=== PATIENT | male | born 1965 | race Two or more races ===

== ENCOUNTER → 2020-06-21 14:46 | Outpatient (BNVA) | payer MEDICARE, SELFPAY | PROVIDERS: PCP Internal Medicine; Visit Provider Nurse Practitioner | DX: R10.13 Epigastric pain (principal); K21.9 Gastro-esophageal reflux disease without esophagitis; D12.6 Benign neoplasm of colon, unspecified; K22.10 Ulcer of esophagus without bleeding; K76.0 Fatty (change of) liver, not elsewhere classified; Z91.013 Allergy to seafood; Z55.0 Illiteracy and low-level literacy | CPT/HCPCS: 99212 ==

== ENCOUNTER 2021-04-13 13:44 | Outpatient (REF) | payer OTHER, SELFPAY ==
[2021-04-13 15:02] LABS: MANUAL DIFF FLAG NO
[2021-04-13 15:05] LABS: Basophils Percent Auto 0.4 % (0-2); Eosinophils Absolute Auto 0.1 X10*3/uL (0.0-0.4); Eosinophils Percent Auto 1.9 % (0-4); Hematocrit 41.6 % (42-52); Hemoglobin 13.6 g/dl (14.0-18.0); Imm Gran Abs Auto 0.02 X10*3/uL (0.00-0.03); Imm Gran Pct Auto 0.3 % (0.0-0.4); Lymphocytes Absolute Auto 2.5 X10*3/uL (1.2-4.9); Lymphocytes Percent Auto 33.4 % (20-40); Mean Corpuscular HGB Conc 32.7 g/dl (31.0-36.0); Mean Corpuscular Hemoglobin 31.7 pg (27.0-33.0); Mean Platelet Volume 9.3 fL (9.4-12.4); Monocytes Absolute Auto 0.6 X10*3/uL (0.1-1.2); Monocytes Percent Auto 8.4 % (2-11); Neutrophils Absolute Auto 4.1 X10*3/uL (2.0-8.3); Neutrophils Percent Auto 55.6 % (45-73); Platelet Count 287 X10*3/uL (160-400); Red Blood Count 4.29 X10*6/uL (4.60-5.80); Red Cell Distribution Width 13.2 % (11.0-16.0); White Blood Count 7.4 X10*3/uL (4.8-10.8)
[2021-04-13 15:27] LABS: Alanine Aminotransferase 15 U/L (0-40); Albumin Level 4.2 g/dL (3.5-5.0); Alkaline Phosphatase 66 U/L (39-117); Anion Gap 13 (12-20); Aspartate Amino Transferase 16 U/L (5-37); Bilirubin Total 0.6 mg/dL (0.0-1.0); Blood Urea Nitrogen 13 mg/dL (9-16); Calcium 9.4 mg/dL (8.4-10.2); Carbon Dioxide 24 mmol/L (22-29); Chloride 110 mmol/L (96-108); Estimated Glomerular Filt Rate > 60; Glucose Random 124 mg/dL (60-115); Potassium 3.8 mmol/L (3.3-5.1); Sodium 143 mmol/L (135-145); Total Protein 7.2 g/dL (6.5-8.0)
[2021-04-13 16:10] LABS: Folate 13.9 ng/mL (> or = 4.0); Vitamin B12 216 pg/mL (200-900)
[2021-04-18 10:36] LABS: Alpha Fetoprotein 4.1 ng/mL (<6.1)
[2021-04-18 11:51] LABS: Parietal Cell Antibody <=20.0 Unit (<=20.0)
[2021-04-19 12:21] LABS: Vitamin D 25-OH, D2 14 ng/mL; Vitamin D 25-OH, D3 15 ng/mL; Vitamin D 25-OH, Total 29 ng/mL (30-100)
[2021-04-19 19:13] LABS: Intrinsic Factor Antibodies Negative (Negative)
== END 2021-04-13 13:45 | disposition home or self-care (01) ==
LOC: HO.LAB 13:44
PROVIDERS: PCP Internal Medicine; Referring Provider Internal Medicine; Visit Provider Nurse Practitioner
DX: R10.13 Epigastric pain (principal); K21.9 Gastro-esophageal reflux disease without esophagitis; K75.81 Nonalcoholic steatohepatitis (NASH); K22.10 Ulcer of esophagus without bleeding; K59.00 Constipation, unspecified; E55.9 Vitamin D deficiency, unspecified; E53.8 Deficiency of other specified B group vitamins; Z86.010 Personal history of colon polyps; Z55.0 Illiteracy and low-level literacy
CPT/HCPCS: 36415; 80053; 82105; 82306; 82607; 82746; 83516; 85025; 86340; 99212

== ENCOUNTER 2021-05-08 15:05 | Outpatient (REF) | payer OTHER, SELFPAY ==
--- NOTE | ~2021-05-08 | US_ITS ---
EXAMINATION: US ABDOMEN LIMITED CLINICAL INFORMATION: Fatty (change of) liver, not elsewhere classified. COMPARISON: Ultrasound abdomen complete dated 04/28/2020 and 04/02/2016. TECHNIQUE: Real-time imaging of the right upper quadrant abdominal viscera. FINDINGS: PANCREAS: The head and body the pancreas are normal. The tail is not well visualized due to bowel gas. LIVER: The liver is normal in size. The liver contour is normal. Liver echotexture is slightly increased. No focal hepatic lesion. There is no intrahepatic biliary duct dilatation seen. GALLBLADDER: Normal. The gallbladder is physiologically distended without evidence of stones, sludge, polyps, wall thickening or pericholecystic fluid. COMMON BILE DUCT: Normal in caliber measuring 0.4 cm in diameter. RIGHT KIDNEY: Normal. No hydronephrosis. No renal calculi or focal parenchymal lesions. The kidney measures 11.7 cm in maximum dimension. FREE FLUID: None. US/US abdomen limited IMPRESSION: Slightly echogenic liver probably representing fatty infiltration. Limited visualization of the tail the pancreas.
== END 2021-05-08 15:06 | disposition home or self-care (01) ==
LOC: HO.US 15:05
PROVIDERS: PCP Internal Medicine; Visit Provider Nurse Practitioner
DX: K76.0 Fatty (change of) liver, not elsewhere classified (principal)
CPT/HCPCS: 76705

== ENCOUNTER → 2021-06-09 15:44 | Outpatient (BNVA) | payer OTHER, SELFPAY | PROVIDERS: PCP Internal Medicine; Visit Provider Nurse Practitioner | DX: Z13.89 Encounter for screening for other disorder (principal) | CPT/HCPCS: Q3014 ==

== ENCOUNTER 2021-07-21 15:32 | Outpatient (REF) | payer OTHER, SELFPAY ==
[2021-07-21 15:47] LABS: MANUAL DIFF FLAG NO
[2021-07-21 15:53] LABS: Basophils Percent Auto 0.5 % (0-2); Eosinophils Absolute Auto 0.1 X10*3/uL (0.0-0.4); Eosinophils Percent Auto 2.1 % (0-4); Hematocrit 40.5 % (42.0-52.0); Hemoglobin 13.2 g/dl (14.0-18.0); Imm Gran Abs Auto 0.02 X10*3/uL (0.00-0.03); Imm Gran Pct Auto 0.3 % (0.0-0.4); Lymphocytes Absolute Auto 2.4 X10*3/uL (1.2-4.9); Mean Corpuscular HGB Conc 32.6 g/dl (31.0-36.0); Mean Corpuscular Hemoglobin 31.8 pg (27.0-33.0); Mean Corpuscular Volume 97.6 fL (80.0-98.0); Mean Platelet Volume 9.1 fL (9.4-12.4); Monocytes Absolute Auto 0.5 X10*3/uL (0.1-1.2); Monocytes Percent Auto 6.8 % (2-11); Neutrophils Absolute Auto 3.6 x10*3/uL (2.0-8.3); Neutrophils Percent Auto 54.3 % (45-73); Platelet Count 267 X10*3/uL (160-400); Red Blood Count 4.15 X10*6/uL (4.60-5.80); Red Cell Distribution Width 12.3 % (11.0-16.0); White Blood Count 6.6 X10*3/uL (4.8-10.8)
[2021-07-21 16:18] LABS: Alanine Aminotransferase 20 U/L (0-40); Albumin Level 4.1 g/dL (3.5-5.0); Alkaline Phosphatase 80 U/L (39-117); Anion Gap 11 (12-20); Aspartate Amino Transferase 21 U/L (5-37); Blood Urea Nitrogen 12 mg/dL (9-16); Calcium 9.4 mg/dL (8.4-10.2); Carbon Dioxide 27 mmol/L (22-29); Chloride 107 mmol/L (96-108); Cholesterol 153 mg/dL; Estimated Glomerular Filt Rate > 60; Glucose Fasting 105 mg/dL (60-99); HDL Cholesterol 36 mg/dL; LDL Cholesterol Calculated 106 mg/dl; Potassium 4.3 mmol/L (3.3-5.1); Sodium 141 mmol/L (135-145); Total Protein 6.9 g/dL (6.5-8.0); Triglycerides 55 mg/dL
[2021-07-21 16:55] LABS: Folate 15.1 ng/mL (> or = 4.0); Vitamin B12 312 pg/mL (200-900)
[2021-07-26 12:42] LABS: Vitamin D 25-OH, D2 10 ng/mL; Vitamin D 25-OH, D3 15 ng/mL; Vitamin D 25-OH, Total 25 ng/mL (30-100)
== END 2021-07-21 15:33 | disposition home or self-care (01) ==
LOC: HO.LAB 15:32
PROVIDERS: Visit Provider Internal Medicine
DX: K21.9 Gastro-esophageal reflux disease without esophagitis (principal); E78.5 Hyperlipidemia, unspecified; E53.8 Deficiency of other specified B group vitamins; E55.9 Vitamin D deficiency, unspecified; Z82.49 Family history of ischemic heart disease and other diseases of the circulatory system
CPT/HCPCS: 36415; 80053; 80061; 82306; 82607; 82746; 85025

== ENCOUNTER 2021-09-12 07:18 | Day surgery (SDC) | payer OTHER, SELFPAY ==
[2021-08-24 11:11] VITALS: BMI 25.1
--- NOTE | 2021-09-11 10:59 | HO.ANESPROP2 ---
Documented by User: Betty Powell NP 09/11/21 11:01 HPI - Anesthesia Eval Consult details Narrative: 56yo M for Upper Endoscopy and Colonoscopy [facility] Active Problems Active Problems: All Active Problems (Updated 04/13/21 @ 17:39 by CHRISTINA Lake) Constipation (Acute) Tubular adenoma of colon (Acute) B12 deficiency (Acute) Family history of hypertension (Acute) Insomnia (Acute) Depression (Acute) Hypovitaminosis D (Acute) Diverticulosis of colon (Acute) Epigastric pain (Acute) GERD (gastroesophageal reflux disease) (Acute) Nonalcoholic fatty liver disease without nonalcoholic steatohepatitis (HELMS) (Acute) Illiterate (Acute) Erosive esophagitis (Acute) Colon cancer screening (Acute) Past Medical History Medical History B12 deficiency Chronic low back pain Depression Erosive esophagitis Family history of hypertension GERD (gastroesophageal reflux disease) Hypovitaminosis D Insomnia Nonalcoholic fatty liver disease without nonalcoholic steatohepatitis (HELMS) Tubular adenoma of colon Family History Family History Father HTN (hypertension) Stroke Epilepsy Mother Alzheimer disease Surgical History Surgical History Hx of arthroscopy of left knee Hx of colonoscopy Hx of left inguinal hernia repair Social History Social History Are you a primary care management specialist to a significant other at home: No Do you presently have visiting nurse or other home services: No Alcohol intake: current Alcohol intake frequency: does not drink Alcohol type: beer Patient Tobacco Use Status: Former Tobacco user Quit Date: 2017 Tobacco use type: Cigarette e-Cigarette/Vaping Use: Never Used Second Hand Smoke Exposure: No Use of substances other than those prescribed or required for medical reasons: No Have you been hit, kicked, punched, or otherwise hurt by someone within the past year? If so, by whom?: No Are you DNR?: No Advance Directives: No Advance Directives Information Provided: Yes (informational brochure mailed) Advance Directives on File: No Recently lost weight without trying: No Eating poorly because of decreased appetite: No Nutrition Risks: No Nutritional Risk Meds Allergies Allergy/AdvReac Type Severity Reaction Status Date / Time crab Allergy Intermediate RASH Verified 06/09/21 15:46 Exam Exam Date and Time: September 11, 2021 1059 Height,Weight and Vital Signs: Height 5 ft 11 in Weight 81.647 kg Pertinent Lab Results Pertinent Lab Results: Laboratory Tests 07/21/21 07/21/21 15:45 15:45 WBC 6.6 Hgb 13.2 L Hct 40.5 L Plt Count 267 Sodium 141 Potassium 4.3 Chloride 107 Carbon Dioxide 27 BUN 12 Creatinine 0.94 Assessment and Plan Assessment Anesthesia Assessment: Chart Reviewed Documented by User: José Miguel Chacko 09/12/21 10:03 PMF Past Medical History Medical History B12 deficiency Chronic low back pain Depression Erosive esophagitis Family history of hypertension GERD (gastroesophageal reflux disease) Hypovitaminosis D Insomnia Nonalcoholic fatty liver disease without nonalcoholic steatohepatitis (HELMS) Tubular adenoma of colon Functional capacity: independent ambulation Family History Family History Father HTN (hypertension) Stroke Epilepsy Mother Alzheimer disease Family history of problems with anesthesia: No Surgical History Surgical History Hx of arthroscopy of left knee Hx of colonoscopy Hx of left inguinal hernia repair History of Problems with Anesthesia: No Social History Social History Are you a primary care management specialist to a significant other at home: No Do you presently have visiting nurse or other home services: No Alcohol intake: current Alcohol intake frequency: does not drink Alcohol type: beer Patient Tobacco Use Status: Former Tobacco user Quit Date: 2017 Tobacco use type: Cigarette e-Cigarette/Vaping Use: Never Used Second Hand Smoke Exposure: No Use of substances other than those prescribed or required for medical reasons: No Have you been hit, kicked, punched, or otherwise hurt by someone within the past year? If so, by whom?: No Are you DNR?: No Advance Directives: No Advance Directives Information Provided: Yes (informational brochure mailed) Advance Directives on File: No Recently lost weight without trying: No Eating poorly because of decreased appetite: No Nutrition Risks: No Nutritional Risk Meds Allergies Allergy/AdvReac Type Severity Reaction Status Date / Time crab Allergy Intermediate RASH Verified 06/09/21 15:46 Exam Airway Mallampati Class: III TM Dist: >3cm Neck ROM: Full Loose/Missing/Broken Teeth: Yes (Chipped and missing ) Heart: rrr Lungs: bl breath sounds Assessment and Plan Final Anesthetic Review Family History of Problems with Anesthesia: No History of Problems with Anesthesia: No NPO: Yes ASA Class: II Final Preanesthetic Review: Aneadolfo Risks/Benef Reviewed Patient Risk: Intermediate Procedure Risk: Intermediate Anesthetic Plan Anesthetic Plan: MAC: Disposition: Standard PACU
--- NOTE | 2021-09-12 08:59 | MHC.SHP ---
Pre-Procedural Eval Section A Date of Service: 09/12/21 The patient is an INPATIENT: No The History & Physical has been completed within 30 days and I have reviewed it.: No Section B Chief Complaint: Colon cancer screening, hx of colon polyps, GERD Details of Present Illness: Colon cancer screening, hx of colon polyps, GERD, epigastric pain Relevant Family History (Specify if Yes): No Relevant Social History: None Present Medications: see Short Stay Collaborative assessment Medical History: Significant History (B12 deficiency Chronic low back pain Depression Family history of hypertension Hypovitaminosis D Insomnia Tubular adenoma of colon) History of Previous Operations: Relevant previous surgery/procedure and date(s) (Hx of arthroscopy of left knee Hx of colonoscopy Hx of left inguinal hernia repair) Allergies: Allergies Allergy/AdvReac Type Severity Reaction Status Date / Time crab Allergy Intermediate RASH Verified 06/09/21 15:46 Review of Systems Sugical H&P ROS: Negative: Constitution, Cardiovascular and Respiratory and Yes, Specify: Gastrointestinal (GERD, abdominal pain) Exam Surgical H&P Exam: Normal: Heart, Normal: Lungs, Normal: Extremities and Normal: Abdomen Plan Diagnosis/Plan: Unchanged I have reviewed the history and physical and performed a pertinent physical examination on my patient. No changes have occurred unless specified.
--- NOTE | 2021-09-12 09:01 | P.BOP_ITS ---
Brief Operative Note Date of Service: 09/12/21 Pre-op diagnosis: Colon cancer screening, hx of colon polyps, GERD, epigastric pain Post-op diagnosis: other (GERD, dysphagia, gastritis, colon polyps, diverticulosis, hemorrhoids) Procedure: FLEXIBLE TRANSORAL UPPER GASTROINTESTINAL ENDOSCOPY WITH BIOPSIES AND ESOPHAGEAL BALLOON DILATION AND COLONOSCOPY TILL CECUM WITH BIOPSIES AND SNARE POLYPECTOMY UPPER ENDOSCOPY Consent: Indications for the procedure and potential complications of bleeding, perforation, reaction to medications and missed diagnosis were discussed with the patient and informed consent was obtained. Instrument: Olympus GIF H 190 mid size upper endoscope Monitoring: Vital signs and clinical assessment, continuous EKG monitoring, Pulse oximetry, Carbon Dioxide monitoring and blood pressure monitoring were done throughout the procedure. Procedure: The patient was placed in the left lateral decubitis position and pre-procedure medications were administered and a bite block was placed. The endoscope was inserted into the mouth and advanced under direct vision to the third part of duodenum. A careful inspection was made as the upper endoscope was withdrawn including a retroflexed examination of the proximal stomach; Findings and interventions are described below. Findings: Larynx: Normal Esophagus: Tortuous esophagus with increased tertiary contractions without stricture or ring - biopsies obtained from proximal esophagus to check for EOE. GE junction at 40 cms. No esophagitis or Peralta's. Empiric balloon dilation was performed with a 20 F CRE balloon x 60 seconds Stomach: A 10 mm benign appearing nodule in the pre-pyloric area - biopsied. Mild gastric erythema. Biopsies were obtained. Grade 2 flap valve on retroflexed examination of the cardia. Duodenum: Normal bulb and descending duodenum Intervention: Biopsies as noted above COLONOSCOPY PROCEDURE NOTE Consent: Indications for the procedure and potential complications of bleeding, perforation, reaction to medications and missed diagnosis were discussed with the patient and informed consent was obtained. Instrument: Olympus PCF H 190 L variable stiffness pediatric colonoscope Monitoring: Vital signs and clinical assessment, intermittent blood pressure monitoring, continuous EKG monitoring, Pulse oximetry and Carbon Dioxide monitoring were done throughout the procedure. Colon withdrawl time was 17 minutes. Procedure: The patient was placed in the left lateral decubitis position and pre-procedure medications were administered. After a digital rectal examination of the ano-rectum, the video colonoscope was inserted into the rectum and advanced through the colon to the cecum. The colonoscope was slowly withdrawn in a retrograde panoramic fashion and the colon mucosa was carefully examined including a retroflexed view of the rectum. Findings and interventions are described below. Procedure Difficulty: : Without difficulty Findings: Terminal Ileum: Not evaluated Cecum: Normal Ascending Colon: Normal Transverse Colon: A 10 mm sessile polyp - removed with a cold snare. A 5-6 mm sessile polyp removed with a cold bx. Descending Colon: Moderate diverticulosis Sigmoid Colon: A 10 mm sessile polyp at 40 cms - removed with a cold snare. Moderate diverticulosis Rectum: Normal Ano-rectum: Moderate internal hemorrhoids Colon preparation: Excellent Impression and Post Procedure Diagnosis: Endoscopy Findings: ESOPHAGUS: Tortuous esophagus with increased tertiary contractions without stricture or ring - biopsies obtained from proximal esophagus to check for EOE. GE junction at 40 cms. No esophagitis or Peralta's. Empiric balloon dilation was performed with a 20 F CRE balloon x 60 seconds STOMACH: Gastritis and antral nodule Colonoscopy Findings: Three small to medium sized polyps removed Moderate diverticulosis seen in the left colon Moderate hemorrhoids on retroflexed exam. Plan: Await pathology results Patient has an appointment on 09/26/21 in the GI Clinic with Rahel Raines NP. Repeat Colonoscopy interval based on path results - in 3 years if polyps are adenomatous and 5 years if polyps are hyperplastic. Above findings were reviewed with the patient and GERD, colon polyps and diverticulosis handouts were given in the discharge area Surgeon: Rebel Back MD Anesthesia: MAC (Dr Chacko) Was an Superintendent Division used for this Procedure?: Yes Superintendent Division: Grace Delgado Estimated blood loss (mL): 0 Pathology: other (A. gastric antrum bxs, R/O H. pylori B. gastric antrum nodule bxs C. proximal esophagus bxs, R/O EOE D. transverse colon polyps (2) E. sigmoid polyp) Condition: stable Disposition: PACU
--- NOTE | 2021-09-12 09:01 | W.PM.OPN ---
Operative Note Operative Note Date of Service: 09/12/21 Narrative: Pre-op diagnosis:?Colon cancer screening, hx of colon polyps, GERD, epigastric pain Post-op diagnosis:?other (GERD, dysphagia, gastritis, colon polyps, diverticulosis, hemorrhoids) Procedure:? FLEXIBLE TRANSORAL UPPER GASTROINTESTINAL ENDOSCOPY WITH BIOPSIES AND ESOPHAGEAL BALLOON DILATION AND COLONOSCOPY TILL CECUM WITH BIOPSIES AND SNARE POLYPECTOMY UPPER ENDOSCOPY Consent:?Indications for the procedure and potential complications of bleeding, perforation, reaction to medications and missed diagnosis were discussed with the patient and informed consent was obtained. Instrument:?Olympus GIF H 190 mid size upper endoscope Monitoring: Vital signs and clinical assessment, continuous EKG monitoring, Pulse oximetry, Carbon Dioxide monitoring and blood pressure monitoring were done throughout the procedure. Procedure:?The patient was placed in the left lateral decubitis position and pre-procedure medications were administered and a bite block was placed. The endoscope was inserted into the mouth and advanced under direct vision to the third part of duodenum. A careful inspection was made as the upper endoscope was withdrawn including a retroflexed examination of the proximal stomach; Findings and interventions are described below. Findings: Larynx:? Normal Esophagus: Tortuous esophagus with increased tertiary contractions without stricture or ring - biopsies obtained from proximal esophagus to check for EOE. GE junction at 40 cms. No esophagitis or Peralta's. Empiric balloon dilation was performed with a 20 F CRE balloon x 60 seconds Stomach:?A 10 mm benign appearing nodule in the pre-pyloric area - biopsied. Mild gastric erythema. Biopsies were obtained. Grade 2 flap valve on retroflexed examination of the cardia. Duodenum:?Normal bulb and descending duodenum Intervention:?Biopsies and esophageal balloon dilation as noted above COLONOSCOPY PROCEDURE NOTE Consent:?Indications for the procedure and potential complications of bleeding, perforation, reaction to medications and missed diagnosis were discussed with the patient and informed consent was obtained. Instrument:?Olympus PCF H 190 L variable stiffness pediatric colonoscope Monitoring:?Vital signs and clinical assessment, intermittent blood pressure monitoring, continuous EKG monitoring, Pulse oximetry and Carbon Dioxide monitoring were done throughout the procedure. Colon withdrawl time was 17 minutes. Procedure:?The patient was placed in the left lateral decubitis position and pre-procedure medications were administered. After a digital rectal examination of the ano-rectum, the video colonoscope was inserted into the rectum and advanced through the colon to the cecum. The colonoscope was slowly withdrawn in a retrograde panoramic fashion and the colon mucosa was carefully examined including a retroflexed view of the rectum. Findings and interventions are described below. Procedure Difficulty:?: Without difficulty Findings: Terminal Ileum: Not evaluated Cecum:? Normal Ascending Colon:??Normal Transverse Colon:??A 10 mm sessile polyp - removed with a cold snare.? A 5-6 mm sessile polyp removed with a cold bx. Descending Colon:? Moderate diverticulosis Sigmoid Colon:? A 10 mm sessile polyp at 40 cms - removed with a cold snare. Moderate diverticulosis Rectum:??Normal Ano-rectum:??Moderate internal hemorrhoids Colon preparation: Excellent ? Impression and Post Procedure Diagnosis: Endoscopy Findings: ESOPHAGUS: Tortuous esophagus with increased tertiary contractions without stricture or ring - biopsies obtained from proximal esophagus to check for EOE. GE junction at 40 cms. No esophagitis or Peralta's. Empiric balloon dilation was performed with a 20 F CRE balloon x 60 seconds STOMACH: Gastritis and antral nodule Colonoscopy Findings: Three small to medium sized polyps removed Moderate diverticulosis seen in the left colon Moderate hemorrhoids on retroflexed exam. Plan: Await pathology results Patient has an appointment on 09/26/21 in the GI Clinic with? Rahel Raines NP. Repeat Colonoscopy interval based on path results - in 3 years if polyps are adenomatous and 5 years if polyps are hyperplastic. Above findings were reviewed with the patient and GERD, colon polyps and diverticulosis handouts were given in the discharge area Surgeon:?Rebel Back MD Anesthesia:?MAC (Dr Chacko) Was an Vascular Technician used for this Procedure?:?Yes Vascular Technician:?Grace Delgado Estimated blood loss (mL):?0 Pathology:?other (A. gastric antrum bxs, R/O H. pylori? B. gastric antrum nodule bxs? C. proximal esophagus bxs, R/O EOE? D. transverse colon polyps (2)? E. sigmoid polyp) Condition:?stable Disposition:?PACU
[2021-09-12 09:06] VITALS: BP 99/66; PULSE 59; RESP 16; TEMP 36.4; O2SAT 99
[2021-09-12] MEDS: Lactated Ringers 1,000 ML 100 ML IVCONT (09:11)
[2021-09-12 11:05] VITALS: BP 85/56; PULSE 79; RESP 14; TEMP 36.5; O2SAT 98
[2021-09-12 11:20] VITALS: BP 90/56; PULSE 80; RESP 16; O2SAT 99
[2021-09-12 11:35] VITALS: BP 101/65; PULSE 67; RESP 16; TEMP 36.5; O2SAT 99
--- NOTE | 2021-09-12 12:04 | PC.NURSE ---
OVEN HEATER USED FOR ALL DISCHARGE INSTRUCTIONS AND THIS RN GAVE PATIENT'S DAUGHTER DISCHARGE INSTRUCTIONS WELL.
== END 2021-09-12 11:55 | disposition home or self-care (01) ==
PROVIDERS: PCP Internal Medicine; Visit Provider Internal Medicine Gastroenterology
PROC: (CPT 45385; principal; 2021-09-12 10:10)
DX: Z12.11 Encounter for screening for malignant neoplasm of colon (principal); Z86.010 Personal history of colon polyps; D12.3 Benign neoplasm of transverse colon; D12.5 Benign neoplasm of sigmoid colon; K57.30 Diverticulosis of large intestine without perforation or abscess without bleeding; K64.8 Other hemorrhoids; R13.10 Dysphagia, unspecified; K21.9 Gastro-esophageal reflux disease without esophagitis; K29.50 Unspecified chronic gastritis without bleeding; K76.0 Fatty (change of) liver, not elsewhere classified; E55.9 Vitamin D deficiency, unspecified; Z79.899 Other long term (current) drug therapy; Z87.891 Personal history of nicotine dependence; Z55.0 Illiteracy and low-level literacy
CPT/HCPCS: 45385; 45380; 43249; 43239; 88305; 88342; C1726; J2370

== ENCOUNTER 2021-09-26 12:34 | Outpatient (REF) | payer OTHER, SELFPAY ==
[2021-09-26 13:31] LABS: MANUAL DIFF FLAG NO
[2021-09-26 14:43] LABS: Basophils Percent Auto 0.5 % (0-2); Eosinophils Absolute Auto 0.2 X10*3/uL (0.0-0.4); Hematocrit 40.8 % (42.0-52.0); Hemoglobin 13.2 g/dl (14.0-18.0); Imm Gran Abs Auto 0.03 X10*3/uL (0.00-0.03); Imm Gran Pct Auto 0.4 % (0.0-0.4); Lymphocytes Absolute Auto 3.5 X10*3/uL (1.2-4.9); Lymphocytes Percent Auto 42.3 % (20-40); Mean Corpuscular HGB Conc 32.4 g/dl (31.0-36.0); Mean Corpuscular Hemoglobin 31.7 pg (27.0-33.0); Mean Corpuscular Volume 97.8 fL (80.0-98.0); Mean Platelet Volume 9.8 fL (9.4-12.4); Monocytes Absolute Auto 0.6 X10*3/uL (0.1-1.2); Monocytes Percent Auto 7.7 % (2-11); Neutrophils Absolute Auto 3.9 x10*3/uL (2.0-8.3); Neutrophils Percent Auto 47.1 % (45-73); Platelet Count 267 X10*3/uL (160-400); Red Blood Count 4.17 X10*6/uL (4.60-5.80); Red Cell Distribution Width 13.2 % (11.0-16.0); White Blood Count 8.3 X10*3/uL (4.8-10.8)
[2021-09-26 15:25] LABS: Alanine Aminotransferase 19 U/L (0-40); Alkaline Phosphatase 94 U/L (39-117); Anion Gap 13 (12-20); Aspartate Amino Transferase 22 U/L (5-37); Bilirubin Direct 0.3 mg/dL (0.0-0.5); Bilirubin Total 0.8 mg/dL (0.0-1.0); Blood Urea Nitrogen 15 mg/dL (9-16); Calcium 9.6 mg/dL (8.4-10.2); Carbon Dioxide 29 mmol/L (22-29); Chloride 105 mmol/L (96-108); Cholesterol 169 mg/dL; Estimated Glomerular Filt Rate > 60; Glucose Fasting 90 mg/dL (60-99); HDL Cholesterol 35 mg/dL; LDL Cholesterol Calculated 121 mg/dl; Potassium 5.1 mmol/L (3.3-5.1); Sodium 142 mmol/L (135-145); Triglycerides 65 mg/dL
[2021-09-28 11:33] LABS: HBS Num1 0.25 mIU/mL (0-7.99); HBc Num1 0.06 S/CO (0.00-0.79); HIV AB/AG Nonreactive (Nonreactive); HIV Num 1 0.08 S/CO (0.00-0.99); Hepatitis B Core Antibody Nonreactive (Nonreactive); ~Hepatitis B Surface Antibody NONREACTIVE (Nonreactive)
[2021-09-28 12:45] LABS: ~HepC Num1 0.11 S/CO (0.00-0.79); ~Hepatitis C Antibody Nonreactive (Nonreactive)
[2021-09-28 13:24] LABS: Hepatitis B Surface Antigen Negative (Negative)
[2021-09-28 14:06] LABS: Alpha Fetoprotein 3.3 ng/mL (<6.1)
[2021-09-29 09:18] LABS: Hepatitis A Antibody IgM 0.26 Index (0-0.79); ~Hepatitis A Antibody IgM Nonreactive (Nonreactive)
== END 2021-09-26 12:35 | disposition home or self-care (01) ==
LOC: HO.LAB 12:34
PROVIDERS: PCP Internal Medicine; Referring Provider Internal Medicine; Visit Provider Nurse Practitioner
DX: K76.0 Fatty (change of) liver, not elsewhere classified (principal); K21.9 Gastro-esophageal reflux disease without esophagitis; D12.6 Benign neoplasm of colon, unspecified; K59.00 Constipation, unspecified; E53.8 Deficiency of other specified B group vitamins; E78.5 Hyperlipidemia, unspecified; Z87.891 Personal history of nicotine dependence
CPT/HCPCS: 36415; 80053; 80061; 80076; 82105; 82248; 85025; 86704; 86706; 86709; 86803; 87340; 87389; 99212

== ENCOUNTER 2021-10-23 09:36 | Outpatient (REF) | payer OTHER, SELFPAY ==
--- NOTE | ~2021-10-23 | US_ITS ---
EXAMINATION: US ABDOMEN LIMITED CLINICAL INFORMATION: Fatty change of liver, not elsewhere classified. COMPARISON: Limited abdominal ultrasound 05/08/2021. Ultrasound abdomen complete 04/28/2020. TECHNIQUE: Real-time imaging of the right upper quadrant abdominal viscera. FINDINGS: PANCREAS: The head and body appear normal. The tail is obscured by bowel gas. LIVER: The liver is normal in size. The liver contour is normal. There is diffuse increased liver parenchymal echogenicity, consistent with hepatic steatosis. No focal hepatic lesion. There is no intrahepatic biliary duct dilatation seen. GALLBLADDER: Normal. The gallbladder is physiologically distended without evidence of stones, sludge, polyps, wall thickening or pericholecystic fluid. COMMON BILE DUCT: Normal in caliber measuring 0.4 cm in diameter. RIGHT KIDNEY: Normal. No hydronephrosis. No renal calculi or focal parenchymal lesions. The kidney measures 10.3 cm in maximum dimension. FREE FLUID: None. US/US abdomen limited IMPRESSION: Mildly echogenic liver suggestive of fatty infiltration. The appearance is similar to prior. No morphologic cirrhosis.
== END 2021-10-23 09:37 | disposition home or self-care (01) ==
LOC: HO.US 09:36
PROVIDERS: PCP Internal Medicine; Visit Provider Nurse Practitioner
DX: K76.0 Fatty (change of) liver, not elsewhere classified (principal)
CPT/HCPCS: 76705

== ENCOUNTER → 2021-11-24 12:27 | Outpatient (BNVA) | payer OTHER, SELFPAY | PROVIDERS: PCP Internal Medicine; Referring Provider Internal Medicine; Visit Provider Nurse Practitioner | DX: K76.0 Fatty (change of) liver, not elsewhere classified (principal); K22.10 Ulcer of esophagus without bleeding; K21.9 Gastro-esophageal reflux disease without esophagitis | CPT/HCPCS: 99212 ==

== ENCOUNTER → 2022-05-24 11:52 | Outpatient (BNVA) | payer OTHER, SELFPAY | PROVIDERS: PCP Internal Medicine; Referring Provider Internal Medicine; Visit Provider Nurse Practitioner | DX: K76.0 Fatty (change of) liver, not elsewhere classified (principal); K21.9 Gastro-esophageal reflux disease without esophagitis; K22.10 Ulcer of esophagus without bleeding | CPT/HCPCS: 99212 ==

== ENCOUNTER 2022-05-31 09:52 | Outpatient (REF) | payer OTHER, SELFPAY ==
--- NOTE | ~2022-05-31 | XR_ITS ---
EXAMINATION: XR LUMBOSACRAL SPINE CLINICAL INFORMATION: Lumbar pain. COMPARISON: Radiographs lumbar spine 11/10/2018. TECHNIQUE: Three views of the lumbosacral spine. FINDINGS: Normal lumbar segmentation with 5 lumbar vertebrae of normal height. No interval vertebral compression or destructive process. Again, there are degenerative disc changes L4-L5 with disc space narrowing, endplate sclerosis, and vertebral spurring. There is a grade 0-1 spondylolisthesis at this level with probable bilateral spondylolysis at L4. Findings at L4-L5 slightly increased since 2019. There is mild degenerative change SI joint. Visualized sacrum are unremarkable. XR/XR lumbar spine 2-3V IMPRESSION: 1. Degenerative disc changes L4-L5 with grade 0-1 spondylolisthesis and probable bilateral spondylolysis. Findings slightly increased since 2019. 2. Mild degenerative change SI joints.
[2022-05-31 11:40] LABS: Alanine Aminotransferase 22 U/L (0-40); Albumin Level 4.2 g/dL (3.5-5.0); Alkaline Phosphatase 76 U/L (39-117); Anion Gap 14 (12-20); Aspartate Amino Transferase 22 U/L (5-37); Bilirubin Total 0.5 mg/dL (0.0-1.0); Blood Urea Nitrogen 14 mg/dL (9-16); Calcium 9.1 mg/dL (8.4-10.2); Carbon Dioxide 26 mmol/L (22-29); Chloride 106 mmol/L (96-108); Estimated Glomerular Filt Rate > 60; Glucose Random 99 mg/dL (60-115); Potassium 4.8 mmol/L (3.3-5.1); Sodium 141 mmol/L (135-145); Total Protein 7.1 g/dL (6.5-8.0)
[2022-06-04 14:32] LABS: Alpha Fetoprotein 4.3 ng/mL (<6.1)
== END 2022-05-31 09:53 | disposition home or self-care (01) ==
LOC: HO.LAB 09:52
PROVIDERS: PCP Internal Medicine; Visit Provider Nurse Practitioner
DX: K76.0 Fatty (change of) liver, not elsewhere classified (principal); M54.50 Low back pain, unspecified
CPT/HCPCS: 36415; 72100; 80053; 82105

== ENCOUNTER 2022-06-19 10:02 | Outpatient (REF) | payer OTHER, SELFPAY ==
--- NOTE | ~2022-06-19 | US_ITS ---
EXAMINATION: US ABDOMEN LIMITED CLINICAL INFORMATION: Fatty change of liver, not elsewhere classified. COMPARISON: Limited abdominal ultrasound 10/23/2021 and 05/08/2021. TECHNIQUE: Real-time imaging of the right upper quadrant abdominal viscera. FINDINGS: PANCREAS: Normal. LIVER: The liver is normal in size. The liver contour is normal. Liver echotexture is slightly increased. No focal hepatic lesion. There is no intrahepatic biliary duct dilatation seen. GALLBLADDER: Normal. The gallbladder is physiologically distended without evidence of stones, sludge, polyps, wall thickening or pericholecystic fluid. COMMON BILE DUCT: Normal in caliber measuring 0.4 cm in diameter. RIGHT KIDNEY: Normal. No hydronephrosis. No renal calculi or focal parenchymal lesions. The kidney measures 11.5 cm in maximum dimension. FREE FLUID: None. US/US abdomen limited IMPRESSION: Slightly echogenic liver probably representing fatty infiltration.
== END 2022-06-19 10:03 | disposition home or self-care (01) ==
LOC: HO.US 10:02
PROVIDERS: Visit Provider Nurse Practitioner
DX: K76.0 Fatty (change of) liver, not elsewhere classified (principal)
CPT/HCPCS: 76705

== ENCOUNTER → 2022-07-10 11:34 | Outpatient (BNVA) | payer OTHER, SELFPAY | PROVIDERS: PCP Internal Medicine; Visit Provider Nurse Practitioner | DX: K22.10 Ulcer of esophagus without bleeding (principal); K21.9 Gastro-esophageal reflux disease without esophagitis; K76.0 Fatty (change of) liver, not elsewhere classified; R10.13 Epigastric pain | CPT/HCPCS: 99212 ==

== ENCOUNTER 2022-12-06 14:45 | Outpatient (REF) | payer OTHER, SELFPAY ==
[2022-12-06 15:18] LABS: MANUAL DIFF FLAG NO
[2022-12-06 15:32] LABS: Basophils Percent Auto 0.3 % (0-2); Eosinophils Absolute Auto 0.1 X10*3/uL (0.0-0.4); Eosinophils Percent Auto 1.5 % (0-4); Hemoglobin 13.6 g/dl (14.0-18.0); Imm Gran Abs Auto 0.01 X10*3/uL (0.00-0.03); Imm Gran Pct Auto 0.2 % (0.0-0.4); Lymphocytes Absolute Auto 2.4 X10*3/uL (1.2-4.9); Lymphocytes Percent Auto 39.2 % (20-40); Mean Corpuscular HGB Conc 33.2 g/dl (31.0-36.0); Mean Corpuscular Volume 96.5 fL (80.0-98.0); Mean Platelet Volume 9.3 fL (9.4-12.4); Monocytes Absolute Auto 0.5 X10*3/uL (0.1-1.2); Monocytes Percent Auto 7.5 % (2-11); Neutrophils Absolute Auto 3.1 x10*3/uL (2.0-8.3); Neutrophils Percent Auto 51.3 % (45-73); Platelet Count 262 X10*3/uL (160-400); Red Blood Count 4.25 X10*6/uL (4.60-5.80); Red Cell Distribution Width 12.4 % (11.0-16.0); White Blood Count 6.1 X10*3/uL (4.8-10.8)
[2022-12-06 16:06] LABS: Alanine Aminotransferase 14 U/L (0-40); Albumin Level 4.2 g/dL (3.5-5.0); Alkaline Phosphatase 73 U/L (39-117); Anion Gap 13 (12-20); Aspartate Amino Transferase 15 U/L (5-37); Bilirubin Total 1.2 mg/dL (0.0-1.0); Blood Urea Nitrogen 15 mg/dL (9-16); Calcium 9.3 mg/dL (8.4-10.2); Carbon Dioxide 26 mmol/L (22-29); Chloride 108 mmol/L (96-108); Cholesterol 180 mg/dL; Estimated Glomerular Filt Rate > 60; Glucose Fasting 99 mg/dL (60-99); HDL Cholesterol 34 mg/dL; LDL Cholesterol Calculated 133 mg/dl; Potassium 4.7 mmol/L (3.3-5.1); Sodium 142 mmol/L (135-145); Total Protein 6.7 g/dL (6.5-8.0); Triglycerides 68 mg/dL
[2022-12-06 16:35] LABS: Folate 12.3 ng/mL (> or = 4.0); Vitamin B12 310 pg/mL (200-900); Vitamin D 25-OH Total 32.5 ng/mL (>30)
== END 2022-12-06 14:46 | disposition home or self-care (01) ==
LOC: HO.LAB 14:45
PROVIDERS: PCP Internal Medicine; Visit Provider Internal Medicine
DX: E55.9 Vitamin D deficiency, unspecified (principal); D64.9 Anemia, unspecified; E53.8 Deficiency of other specified B group vitamins; E78.5 Hyperlipidemia, unspecified; K21.9 Gastro-esophageal reflux disease without esophagitis
CPT/HCPCS: 36415; 80053; 80061; 82306; 82607; 82746; 85025

== ENCOUNTER → 2023-01-08 11:52 | Outpatient (BNVA) | payer OTHER, SELFPAY | PROVIDERS: PCP Internal Medicine; Visit Provider Nurse Practitioner | DX: K76.0 Fatty (change of) liver, not elsewhere classified (principal); K21.9 Gastro-esophageal reflux disease without esophagitis; K22.10 Ulcer of esophagus without bleeding; K59.00 Constipation, unspecified; Z86.010 Personal history of colon polyps; Z79.899 Other long term (current) drug therapy | CPT/HCPCS: 99212 ==

== ENCOUNTER 2023-02-06 08:30 | Outpatient (REF) | payer OTHER, SELFPAY ==
--- NOTE | ~2023-02-06 | US_ITS ---
EXAMINATION: US ABDOMEN COMPLETE CLINICAL INFORMATION: Fatty (change of) liver, not elsewhere classified. COMPARISON: Ultrasound abdomen limited 06/19/2022 and 10/23/2021. TECHNIQUE: Real-time imaging of the abdominal viscera. FINDINGS: PANCREAS: The head and body the pancreas are normal. The tail is not visualized. ABDOMINAL AORTA: The proximal, mid, and distal segments are normal in caliber. INFERIOR VENA CAVA: Visualized portions are normal. LIVER: The liver is normal in size. The liver contour is normal. Liver echotexture is increased and slightly heterogeneous. No focal hepatic lesion. There is no intrahepatic biliary duct dilatation seen. GALLBLADDER: Normal. The gallbladder is physiologically distended without evidence of stones, sludge, polyps, wall thickening or pericholecystic fluid. COMMON BILE DUCT: Normal in caliber measuring 0.5 cm in diameter. RIGHT KIDNEY: Normal. No hydronephrosis. No renal calculi or focal parenchymal lesions. The kidney measures 11.1 cm in maximum dimension. LEFT KIDNEY: Normal in No hydronephrosis. No renal calculi or focal parenchymal lesions. The kidney measures 11.3 cm in maximum dimension. SPLEEN: Normal. The spleen measures 9.5 cm in maximum dimension. FREE FLUID: None. US/US abdomen complete IMPRESSION: Echogenic slightly heterogeneous liver echotexture questionable for fatty infiltration versus hepatocellular disease. No evidence of cirrhosis or focal liver lesion. Limited visualization of the tail the pancreas.
== END 2023-02-06 08:31 | disposition home or self-care (01) ==
LOC: HO.US 08:30
PROVIDERS: PCP Internal Medicine; Visit Provider Nurse Practitioner
DX: K76.0 Fatty (change of) liver, not elsewhere classified (principal)
CPT/HCPCS: 76700

== ENCOUNTER 2023-02-20 11:54 | Outpatient (REF) | payer OTHER, SELFPAY | END 2023-02-20 11:55 | disposition home or self-care (01) | LOC: HO.LAB 11:54 | PROVIDERS: PCP Internal Medicine; Visit Provider Nurse Practitioner Family | DX: Z13.89 Encounter for screening for other disorder (principal) ==

== ENCOUNTER 2023-02-21 13:02 | Outpatient (REF) | payer OTHER, SELFPAY | END 2023-02-21 13:03 | disposition home or self-care (01) | LOC: HO.LAB 13:02 | PROVIDERS: PCP Internal Medicine; Visit Provider Nurse Practitioner Family | DX: Z01.812 Encounter for preprocedural laboratory examination (principal); Z13.29 Encounter for screening for other suspected endocrine disorder | CPT/HCPCS: 36415; 84443; 93005 ==

== ENCOUNTER 2023-03-06 13:30 | Outpatient (AMB) | payer OTHER, SELFPAY ==
[2023-03-06 13:37] VITALS: BP 105/63; PULSE 62; BMI 25.2
--- NOTE | 2023-03-06 13:37 | A.OFFVIS_ITS ---
Intake Vital Signs 03/06/23 13:37 Height 5 ft 10 in Weight 175 lb 7.807 oz BMI 25.2 BP 105/63 Blood Pressure Location Lt brachial Position Sitting Pulse 62 Intake Visit Reasons: u/s follow up Intake Note: Patient presents to in office visit today in follow up of U/S. CC: Patient reports abdominal burning sensation and occasional pain when eating certain meals. Denies other GI symptoms. 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 he only drinks occasional alcohol Hep Bs Antigen Negative Hep Bs Antibody NONREACTIVE Hep B Core Total Ab Nonreactive Hepatitis C Ab (EIA) Nonreactive HIV 1&2 Ab/P24 Ag 4thGn Nonreactive CURRENT LABS 12/07/2303/20/23 ?15:1615:16 WBC 6.1 Hgb 13.6 L Hct 41.0 L MCV 96.5 MCH 32.0 Plt Count 262 Estimated GFR > 60 Total Bilirubin 1.2 H AST 15 ALT 14 Alkaline Phosphatase 73 US ABD 06/25/22? 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 He likes the protonix its the only thing that does not give me side effects. I will try to do a PA for bid protonix. He asks about taking Cod Liver Oil given his liver, and its okay. Also he asks about a supplement called S.N.A.C that is being touted by a [employer] doctor. I will research it. He asks me to review his latest labs from Dr. Moroe, he is concerned about his cholesterol - which appears okay. Ordering US for the HELMS. ROV after US. (2) GERD (gastroesophageal reflux disease): ?Code(s): K21.9 - Gastro-esophageal reflux disease without esophagitis ?Qualifiers: ?Esophagitis presence:?esophagitis presence not specified? Qualified Code(s):?K21.9 - Gastro-esophageal reflux disease without esophagitis (3) Erosive esophagitis: ?Comment: This is in his history from a note gleaned from [facility] but I cannot find any corresponding EGD report ?Code(s): K22.10 - Ulcer of esophagus without bleeding (4) Constipation: ?Code(s): K59.00 - Constipation, unspecified (5) Tubular adenoma of colon: ?Comment: COLONOSCOPY 2016=TA, 2020 3 TA repeat 3 years ?Code(s): D12.6 - Benign neoplasm of colon, unspecified ? ? ? Orders: Orders US abdomen complet e Today K76.0 - Fatty (florentin nge of) liver, not elsewhere classif ied ? Medications: Changed From pantoprazole 40 mg? PO DAILY 90 tabs 1RF K22.10 - Ulcer of esophagus without bleeding ? To pantoprazole 40 mg? PO BID 90 t abs 1RF K22.10 - Ulcer of esophagus without bleeding ? Discontinued famotidine (Pepcid ) ?? Discontinued Reason:? Doctor's Order 40 mg? PO BEDTIME 90 days 90 tabs 2R F K22.10 - Ulcer of esophagus without bleeding ? ULTRASOUND OF THE ABDOMEN 02/06/23 FINDINGS: PANCREAS: The head and body the pancreas are normal. The tail is not visualized. ABDOMINAL AORTA: The proximal, mid, and distal segments are normal in caliber. INFERIOR VENA CAVA: Visualized portions are normal. LIVER: The liver is normal in size. The liver contour is normal. Liver echotexture is increased and slightly heterogeneous. No focal hepatic lesion. There is no intrahepatic biliary duct dilatation seen. GALLBLADDER: Normal. The gallbladder is physiologically distended without evidence of stones, sludge, polyps, wall thickening or pericholecystic fluid. COMMON BILE DUCT: Normal in caliber measuring 0.5 cm in diameter. RIGHT KIDNEY: Normal. No hydronephrosis. No renal calculi or focal parenchymal lesions. The kidney measures 11.1 cm in maximum dimension. LEFT KIDNEY: Normal in No hydronephrosis. No renal calculi or focal parenchymal lesions. The kidney measures 11.3 cm in maximum dimension. SPLEEN: Normal. The spleen measures 9.5 cm in maximum dimension. FREE FLUID: None. US/US abdomen complete IMPRESSION: Echogenic slightly heterogeneous liver echotexture questionable for fatty infiltration versus hepatocellular disease. No evidence of cirrhosis or focal liver lesion. Limited visualization of the tail the pancreas. TODAY'S VISIT [place] #Nicole Mcallister He is feeling much better on the protonix 40mg bid and is now happy with his GI regimen. He never started the SNAC supplement because I got scared. I inform him that there are several types of supplements that this company makes, most of them would be fine for him, but a couple of them have a LOT of caffeine and another stimulant (phenylphrine) and would not be good for him. I encourage him to bring any bottles in with him if he is considering using them. We review the US and he asks so can I stop eating healthy? I inform him that if he eats poorly and gains weight the fat will go right back in the liver - so this is best a life long diet change for health. He then says ?but I know people who have fatty liver we had anything they want. ? I tell him that many people do things that are not good for their health in just because they do it does not mean is with a lot to do. Hopefully he understands this. ROV 6 mos. PFSH Medical History B12 deficiency Chronic low back pain Depression Erosive esophagitis Family history of hypertension GERD (gastroesophageal reflux disease) Hypovitaminosis D Insomnia Mild recurrent major depression Nonalcoholic fatty liver disease without nonalcoholic steatohepatitis (HELMS) Tubular adenoma of colon Surgical History Hx of arthroscopy of left knee Hx of colonoscopy Hx of left inguinal hernia repair Family History Father HTN (hypertension) Stroke Epilepsy Mother Alzheimer disease Social History Housing: Apartment Are you a primary child adolescent care to a significant other at home: No Do you presently have visiting nurse or other home services: No Alcohol intake: current Alcohol intake frequency: holidays/special occasions only Alcohol type: beer Patient Tobacco Use Status: Former Tobacco user Quit Date: 2017 Tobacco use type: Cigarette e-Cigarette/Vaping Use: Never Used Second Hand Smoke Exposure: No service: No Current occupational status: disabled Cognitive needs: No Hearing needs: No Vision needs: No Review of Systems Const Denies fatigue, Denies fever(s), Denies night sweats, Denies poor appetite and Denies weight loss ENT Reports Normal hearing present, Denies dental pain, Denies dysphagia, Denies hearing loss, Denies mouth pain, Denies odynophagia, Denies throat swelling, Denies tongue swelling and Reports other (Dentition adequate) Card Reports no additional complaints Resp Reports no additional complaints GI Denies abdominal pain, Denies melena, Denies bloating, Denies hematochezia, Reports constipation, Denies GI cramping, Denies dysphagia, Denies excessive flatus, Denies early satiety, Reports heartburn, Denies diarrhea, Denies nausea, Denies odynophagia, Denies vomiting and Denies hematemesis Skin/Breast Denies pruritus, Denies lesions, Denies rash and Denies jaundice Neuro Reports Normal hearing present and Denies Abnormal speech present Endo Denies fatigue Aller/Immun Denies throat swelling and Denies tongue swelling Physical Exam Vital Signs: Last Vital Signs Pulse 62 03/06/23 13:37 BP 105/63 03/06/23 13:37 BMI result Body Mass Index 25.2 Const General: cooperative, no acute distress, well developed and well groomed Nutritional Appearance: average body habitus and well nourished Orientation/consciousness: oriented to person, oriented to place and oriented to time Limitations: language barrier and other limitations (Illiterate) HEENT Head: Yes normocephalic and Yes atraumatic Eyes General: appearance normal, both eyes and all related structures Pupils: Equal, round and reactive pupils present Neck Neck: Yes normal visual inspection and Yes no lymphadenopathy Thyroid: Thyroid normal Resp Effort & Inspection: normal respiratory effort and able to speak in complete sentences Auscultation: clear to auscultation bilaterally Cardio Rate: regular rate Rhythm: regular rhythm Heart sounds: Normal, physiologic split S2 sound present Peripheral pulses: radial pulses present and posterior tibial pulses present GI Inspection: No distended and No Abdominal panniculus present Palpation (GI): Soft to palpation, nontender, no guarding, not rigid and No hepatosplenomegaly present Percussion: Yes normal to percussion Auscultation: normal bowel sounds Rectal Exam - Male: Yes deferred Skin General skin exam: no rashes or lesions noted, turgor normal, skin not dry, no jaundice, No spider nevi and no striae Rashes: no rashes Nails: normal Neuro General: oriented to person, oriented to place and oriented to time Cranial nerves: Yes Equal, round and reactive pupils present and Yes Normal hearing present Speech: No Abnormal speech present Extrem General: Yes normal to inspection, No clubbing, No cyanosis and No edema Psych Appearance: grossly normal and well kempt Mental Status: mental status grossly normal Speech and movement: Normal speech and movement present Affect: normal affect Attitude: cooperative Thought process: Normal thought process present and not confabulating Thought content: Normal thought content present Insight: Fair insight present (Psych) Judgement: Fair judgement present (Psych) Assessment & Plan Assessment & Plan (1) Nonalcoholic fatty liver disease without nonalcoholic steatohepatitis (HELMS): Comment: BASELINE LABS; 02/2020 labs AST/ALT 17, ferritin is 161, baseline alpha fetoprotein is 4.6, autoimmune workup is negative, he only drinks occasional alcohol Hep Bs Antigen Negative Hep Bs Antibody NONREACTIVE Hep B Core Total Ab Nonreactive Hepatitis C Ab (EIA) Nonreactive HIV 1&2 Ab/P24 Ag 4thGn Nonreactive CURRENT LABS 12/06/22 WBC 6.1 Hgb 13.6 L Hct 41.0 L MCV 96.5 MCH 32.0 Plt Count 262 Estimated GFR > 60 Total Bilirubin 1.2 H AST 15 ALT 14 Alkaline Phosphatase 73 ULTRASOUND OF THE ABDOMEN 02/06/23 IMPRESSION: Echogenic slightly heterogeneous liver echotexture questionable for fatty infiltration versus hepatocellular disease. No evidence of cirrhosis or focal liver lesion. Limited visualization of the tail the pancreas. Code(s): K76.0 - Fatty (change of) liver, not elsewhere classified Plan: [place] #Nicole Mcallister He is feeling much better on the protonix 40mg bid and is now happy with his GI regimen. He never started the SNAC supplement because I got scared. I inform him that there are several types of supplements that this company makes, most of them would be fine for him, but a couple of them have a LOT of caffeine and another stimulant (phenylphrine) and would not be good for him. I encourage him to bring any bottles in with him if he is considering using them. We review the US and he asks so can I stop eating healthy? I inform him that if he eats poorly and gains weight the fat will go right back in the liver - so this is best a life long diet change for health. He then says ?but I know people who have fatty liver we had anything they want. ? I tell him that many people do things that are not good for their health in just because they do it does not mean is with a lot to do. Hopefully he understands this. He continues on his senna with good control of his constipation. ROV 6 mos. (2) Erosive esophagitis: Comment: This is in his history from a note gleaned from [facility] but I cannot find any corresponding EGD report Code(s): K22.10 - Ulcer of esophagus without bleeding (3) Constipation: Code(s): K59.00 - Constipation, unspecified (4) GERD (gastroesophageal reflux disease): Code(s): K21.9 - Gastro-esophageal reflux disease without esophagitis Qualifiers: Esophagitis presence: esophagitis presence not specified Qualified Code(s): K21.9 - Gastro-esophageal reflux disease without esophagitis (5) Illiterate: Code(s): Z55.0 - Illiteracy and low-level literacy Coding Level of Care Code Est Pt Level 3 (67994) Diagnoses Nonalcoholic fatty liver disease without nonalcoholic steatohepatitis (HELMS) K76.0 Erosive esophagitis K22.10 Constipation K59.00 GERD (gastroesophageal reflux disease) K21.9 Esophagitis presence: esophagitis presence not specified Illiterate Z55.0
== END 2023-03-06 14:15 | disposition home or self-care (01) ==
PROVIDERS: PCP Internal Medicine; Visit Provider Nurse Practitioner
DX: K76.0 Fatty (change of) liver, not elsewhere classified (principal); K22.10 Ulcer of esophagus without bleeding; K59.00 Constipation, unspecified; K21.9 Gastro-esophageal reflux disease without esophagitis; Z55.0 Illiteracy and low-level literacy
CPT/HCPCS: 99213

== ENCOUNTER → 2023-03-06 13:30 | Outpatient (BNVA) | payer OTHER, SELFPAY | PROVIDERS: PCP Internal Medicine; Visit Provider Nurse Practitioner | DX: K76.0 Fatty (change of) liver, not elsewhere classified (principal); K21.9 Gastro-esophageal reflux disease without esophagitis; K22.10 Ulcer of esophagus without bleeding; K59.00 Constipation, unspecified; D12.6 Benign neoplasm of colon, unspecified; Z55.0 Illiteracy and low-level literacy | CPT/HCPCS: 99212 ==

== ENCOUNTER 2023-07-04 16:58 | Outpatient (AMB) | payer OTHER, SELFPAY ==
[2023-07-04 17:01] VITALS: BP 110/80; BMI 26.5
--- NOTE | 2023-07-04 17:01 | MHC.PC.OV ---
Vital Signs 07/04/23 17:01 Height 5 ft 10 in Weight 185 lb BMI 26.5 BP 110/80 Blood Pressure Location Lt brachial Position Sitting Intake Visit Reasons: physical Intake Note: Patient here for a physical exam Protection Analyst Required: No Accompanied by: Self / Same As Patient Allergies crab Allergy (Intermediate, Verified 07/04/23 17:13) RASH No Known Drug Allergies Allergy (Unknown, Verified 07/04/23 17:13) none Medication List - Last Reconciled 07/04/23 by Belen Brush MD cholecalciferol (vitamin D3) (Vitamin D3) 25 mcg PO DAILY ibuprofen 800 mg PO TID PRN ketorolac 0.5% 0 drps ophthalmic (eye) pantoprazole 40 mg PO BID sennosides (senna) 1-2 tabs qhs PO bedtime; 30 days sertraline 200 mg (2 x 100 mg) PO DAILY 90 days trazodone 50 mg PO BEDTIME 90 days Tobacco use date assessed: 02/05/23 Dental Screening Dental Screen Date: 07/04/23 Did you have a dental visit in the last 12 months?: Yes Did you have a dental problem in the last 6 months where you did not have access to dental care?: No Was dental information given to patient?: Patient has dentist HPI HPI Comments History of Present Illness Details This is a 58-year-old male with mild recurrent major depression that comes for his physical exam. Depression has been stable with sertraline. Last colonoscopy was 2021 showing fragments of tubular adenoma. Denies any chest pain or shortness of breath. [facility] Medical History Mild recurrent major depression B12 deficiency Family history of hypertension Insomnia Hypovitaminosis D Chronic low back pain Depression Tubular adenoma of colon Erosive esophagitis Nonalcoholic fatty liver disease without nonalcoholic steatohepatitis (HELMS) GERD (gastroesophageal reflux disease) Surgical History Hx of arthroscopy of left knee Hx of left inguinal hernia repair Hx of colonoscopy Family History Father HTN (hypertension) Stroke Epilepsy Mother Alzheimer disease Social History Housing: Apartment Are you a primary day care assistant to a significant other at home: No Do you presently have visiting nurse or other home services: No Alcohol intake: current Alcohol intake frequency: holidays/special occasions only Alcohol type: beer Patient Tobacco Use Status: Former Tobacco user Quit Date: 2017 Tobacco use type: Cigarette e-Cigarette/Vaping Use: Never Used Second Hand Smoke Exposure: No service: No Current occupational status: disabled Cognitive needs: No Hearing needs: No Vision needs: No Questionnaire Thrive Questionnaire Date Thrive assessed: 12/13/22 BRUNO-7 AMB Questionnaire BRUNO-7 Date BRUNO - 7 assessed: 12/13/22 Source: Developed by Drs. Von Cool, Rosalind Alexis, Jovani Kim and colleagues, with an educational anthony from [employer]. Review of Systems Const All systems reviewed & are unremarkable except as noted in HPI and below Eyes Reports no additional complaints, Denies change in vision and Denies other visual disturbances Card Denies chest pain at rest, Denies chest pain with activity, Denies edema, Denies irregular heart rhythm, Denies claudication, Denies dyspnea, Denies dyspnea on exertion, Denies orthopnea, Denies paroxysmal nocturnal dyspnea and Denies slow heart rate Resp Denies cough, Denies dyspnea and Denies dyspnea on exertion GI Denies abdominal pain, Denies change in bowel habits, Denies excessive flatus, Denies nausea and Denies vomiting Denies urinary hesitancy, Denies urinary incontinence and Denies urinary urgency Musc Denies abnormal gait, Denies atrophy, Denies deformity and Denies limited range of motion Skin/Breast Denies bleeding lesions, Denies changing lesions and Denies rash Neuro Denies abnormal gait, Denies behavioral changes, Denies confusion and Denies lack of coordination Psych Denies behavioral changes and Denies confusion Physical exam (Primary Care) Vital Signs: Last Vital Signs BP 110/80 07/04/23 17:01 BMI result Body Mass Index 26.5 Tobacco/Smoking Status: Tobacco use Status Tobacco use date assessed 02/05/23 07/04/23 17:05 Patient Tobacco Use Status Former Tobacco user 07/04/23 17:05 Tobacco use type Cigarette 07/04/23 17:05 e-Cigarette/Vaping Use Never Used 07/04/23 17:05 Thrive Assessment: Date of Thrive Assessment Date Thrive assessed 12/13/22 07/04/23 17:05 Const General: No confusion Orientation/consciousness: patient oriented x3 and No confusion HENMT Head: Yes normal to inspection, Yes normocephalic and Yes atraumatic Ears: external ears normal Eyes General: appearance normal, both eyes and all related structures Eyelids: Yes eyelids normal Conjunctivae: conjunctivae normal Neck Neck: Yes normal visual inspection and Yes supple Resp Effort & Inspection: normal respiratory effort Auscultation: clear to auscultation bilaterally Cardio Jugular venous distension: no JVD Rate: regular rate Rhythm: regular rhythm Heart sounds: S1 normal heart sound present and S2 normal heart sound present GI Inspection: Yes normal to inspection Palpation (GI): Soft to palpation and nontender Auscultation: normal bowel sounds Skin General skin exam: no rashes or lesions noted Neuro General: patient oriented x3, no focal motor deficits and No confusion Extrem General: Yes full ROM Psych Appearance: grossly normal Office Procedures Flu Questionnaire Does the patient have a severe egg allergy?: No Does the patient have severe life threatening allergies?: No Does the patient have a fever or illness today?: No Has the patient ever had Guillain-Austin Syndrome?: No Has the patient ever had any past reaction to a flu shot?: No Immunizations flu vacc [id number] 6mos up(PF) 60 mcg(15 mcgx4)/0.5 mL IM syringe Performing Provider: Belen Brush MD Performing Location: [facility] Administered by: JESUS MANUEL Julien on 07/04/23 17:18 Dose Route Admin Location Dispensed Lot Number Expiration Date [facility] Band Machine Operator 0.5 mL IM Left Deltoid 0.5 mL [id number] 02/16/24 [id number] [employer] VIS Given Date VIS Provided VIS Publication Date 07/04/23 Single Vaccine 21 Eligibility Eligibility Date Funding Source Not [facility] Eligible 07/04/23 Private Assessment and Plan Assessment & Plan (1) Physical exam: Code(s): Z00.00 - Encounter for general adult medical examination without abnormal findings Plan: Repeat in a year. (2) Mild recurrent major depression: Code(s): F33.0 - Major depressive disorder, recurrent, mild Plan: Continue sertraline. Orders: Orders Vitamin D 25-OH Total 07/04/23 E55.9 - Vitamin D deficiency, unspecified Lipid Panel 07/04/23 Z00.00 - Encounter for general adult medical examination without abnormal findings Comprehensive [place]. Panel Fast 07/04/23 Z00.00 - Encounter for general adult medical examination without abnormal findings Influenza [id number] Immunization 07/04/23 Z23 - Encounter for immunization Coding Level of Care Code Est Pt Prev Care 40-64y(59086) Diagnoses Physical exam Z00.00 Mild recurrent major depression F33.0 Time Spent (min) 31
== END 2023-07-04 17:25 | disposition home or self-care (01) ==
PROVIDERS: Visit Provider Internal Medicine
DX: Z23 Encounter for immunization (principal)
CPT/HCPCS: 90471; 90686; 99396

== ENCOUNTER 2023-09-05 11:19 | Outpatient (AMB) | payer OTHER, SELFPAY ==
[2023-09-05 11:40] VITALS: BP 114/67; PULSE 62; BMI 26.9
--- NOTE | 2023-09-05 11:40 | MHC.OFFVIS ---
Intake Vital Signs 09/05/23 11:40 Height 5 ft 10 in Weight 187 lb 13.341 oz BMI 26.9 BP 114/67 Blood Pressure Location Lt brachial Position Sitting Pulse 62 Intake Visit Reasons: 6 month follow up Intake Note: Patient presents to in office visit today in follow up of abdominal pain. CC: Patient reports that when he coughs he feels something moves from left chest area. He also reports occasional abdominal pain. 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 Language: Serbian Accompanied by: Self / Same As Patient Allergies crab Allergy (Intermediate, Verified 09/05/23 11:46) RASH No Known Drug Allergies Allergy (Unknown, Verified 09/05/23 11:46) none HPI 6 month follow up HPI Details Assessment & Plan (1) Nonalcoholic fatty liver disease without nonalcoholic steatohepatitis (HELMS): Comment: BASELINE LABS; 02/2020 labs AST/ALT , ferritin is 161, baseline alpha fetoprotein is 4.6, autoimmune workup is negative, he only drinks occasional alcohol Hep Bs Antigen Negative Hep Bs Antibody NONREACTIVE Hep B Core Total Ab Nonreactive Hepatitis C Ab (EIA) Nonreactive HIV 1&2 Ab/P24 Ag 4thGn Nonreactive CURRENT LABS 12/06/22 WBC 6.1 Hgb 13.6 L Hct 41.0 L MCV 96.5 MCH 32.0 Plt Count 262 Estimated GFR > 60 Total Bilirubin 1.2 H AST 15 ALT 14 Alkaline Phosphatase 73 ULTRASOUND OF THE ABDOMEN 02/06/23 IMPRESSION: Echogenic slightly heterogeneous liver echotexture questionable for fatty infiltration versus hepatocellular disease. No evidence of cirrhosis or focal liver lesion. Limited visualization of the tail the pancreas. Code(s): K76.0 - Fatty (change of) liver, not elsewhere classified Plan: Serbian #Nicole Live He is feeling much better on the protonix 40mg bid and is now happy with his GI regimen. He never started the [employer] supplement because I got scared. I inform him that there are several types of supplements that this company makes, most of them would be fine for him, but a couple of them have a LOT of caffeine and another stimulant (phenylphrine) and would not be good for him. I encourage him to bring any bottles in with him if he is considering using them. We review the US and he asks so can I stop eating healthy? I inform him that if he eats poorly and gains weight the fat will go right back in the liver - so this is best a life long diet change for health. He then says ?but I know people who have fatty liver we had anything they want. ? I tell him that many people do things that are not good for their health in just because they do it does not mean is with a lot to do. Hopefully he understands this. He continues on his senna with good control of his constipation. ROV 6 mos. (2) Erosive esophagitis: Comment: This is in his history from a note gleaned from [facility] but I cannot find any corresponding EGD report Code(s): K22.10 - Ulcer of esophagus without bleeding (3) Constipation: Code(s): K59.00 - Constipation, unspecified (4) GERD (gastroesophageal reflux disease): Code(s): K21.9 - Gastro-esophageal reflux disease without esophagitis Qualifiers: Esophagitis presence: esophagitis presence not specified Qualified Code(s): K21.9 - Gastro-esophageal reflux disease without esophagitis (5) Illiterate: Code(s): Z55.0 - Illiteracy and low-level literacy TODAY'S VISIT Serbian #Linsey live He say she has been doing well, but he finds following a diet difficult. He says when he coughs he feels something moving in the lower chest/sternum. On exam, this seem to only be a muscle pull or a cartilage problem, He is reassured and told that only time and rest can help this. Anatomy of the ribs explained. He continues to do well on his pantoprazole 40mg bid, and he had a focal area of Barretts esophagus on his last EGD so next year in 2024 when he is due for repeat colonoscopy we also should do an upper endoscopy. He was educated that he should never be want to go off of his acid reducing medications as this would increase his risk of esophageal cancer. If an another provider ever wants to take him off of his medications they should talk to our office 1st. Because the patient is worried about the state of his liver I will bring him back in 8 weeks and hope that we have the labs in the ultrasound at that time. [facility] Medical History (Updated 09/05/23 @ 12:00 by CHRISTINA Lake) Physical exam Mild recurrent major depression B12 deficiency Family history of hypertension Insomnia Hypovitaminosis D Chronic low back pain Depression Tubular adenoma of colon Erosive esophagitis Nonalcoholic fatty liver disease without nonalcoholic steatohepatitis (HELMS) GERD (gastroesophageal reflux disease) Surgical History Hx of arthroscopy of left knee Hx of left inguinal hernia repair Hx of colonoscopy Family History Father HTN (hypertension) Stroke Epilepsy Mother Alzheimer disease Social History Housing: Apartment Are you a primary critical care educator to a significant other at home: No Do you presently have visiting nurse or other home services: No Alcohol intake: current Alcohol intake frequency: holidays/special occasions only Alcohol type: beer Patient Tobacco Use Status: Former Tobacco user Quit Date: 2017 Tobacco use type: Cigarette e-Cigarette/Vaping Use: Never Used Second Hand Smoke Exposure: No service: No Current occupational status: disabled Cognitive needs: No Hearing needs: No Vision needs: No Review of Systems Const Denies fatigue, Denies fever(s), Denies night sweats, Denies poor appetite, Reports weight gain and Denies weight loss ENT Reports Normal hearing present, Denies dental pain, Denies dysphagia, Denies hearing loss, Denies mouth pain, Denies odynophagia, Denies throat swelling, Denies tongue swelling and Reports other (Dentition adequate) Card Reports chest pain (Only with coughing) Resp Reports cough GI Denies abdominal pain, Denies melena, Denies bloating, Denies hematochezia, Reports constipation, Denies GI cramping, Denies dysphagia, Denies excessive flatus, Denies early satiety, Reports heartburn, Denies diarrhea, Denies nausea, Denies odynophagia, Denies vomiting and Denies hematemesis Skin/Breast Denies pruritus, Denies lesions, Denies rash and Denies jaundice Neuro Reports Normal hearing present and Denies Abnormal speech present Endo Denies fatigue Aller/Immun Denies throat swelling and Denies tongue swelling Physical Exam Vital Signs: Last Vital Signs Pulse 62 09/05/23 11:40 BP 114/67 09/05/23 11:40 BMI result Body Mass Index 26.9 Const General: cooperative, no acute distress, well developed and well groomed Nutritional Appearance: average body habitus and well nourished Orientation/consciousness: oriented to person, oriented to place and oriented to time Limitations: language barrier and other limitations (Literacy level) HEENT Head: Yes normocephalic and Yes atraumatic Eyes General: appearance normal, both eyes and all related structures Pupils: Equal, round and reactive pupils present Neck Neck: Yes normal visual inspection and Yes no lymphadenopathy Thyroid: Thyroid normal Chest Chest palpation & inspection: normal inspection of the chest, no crepitus, localized rib tenderness with anteroposterior compression (Low left of the sternum) and tenderness (In area as above) Breast/axilla inspection: normal inspection of the breasts Resp Effort & Inspection: normal respiratory effort and able to speak in complete sentences Auscultation: clear to auscultation bilaterally Cardio Rate: regular rate Rhythm: regular rhythm Heart sounds: Normal, physiologic split S2 sound present Peripheral pulses: radial pulses present and posterior tibial pulses present GI Inspection: No distended and No Abdominal panniculus present Palpation (GI): Soft to palpation, nontender, no guarding, not rigid and No hepatosplenomegaly present Percussion: Yes normal to percussion Auscultation: normal bowel sounds Rectal Exam - Male: Yes deferred Skin General skin exam: no rashes or lesions noted, turgor normal, skin not dry, no jaundice, No spider nevi and no striae Rashes: no rashes Nails: normal Neuro General: oriented to person, oriented to place and oriented to time Cranial nerves: Yes Equal, round and reactive pupils present and Yes Normal hearing present Speech: No Abnormal speech present Extrem General: Yes normal to inspection, No clubbing, No cyanosis and No edema Psych Appearance: grossly normal and well kempt Mental Status: mental status grossly normal Speech and movement: Normal speech and movement present Affect: normal affect Attitude: cooperative Thought process: Normal thought process present and not confabulating Thought content: Normal thought content present Insight: Limited insight present (Psych) Judgement: Limited judgement present (Psych) Assessment & Plan Assessment & Plan (1) Peralta's esophagus determined by biopsy: Code(s): K22.70 - Peralta's esophagus without dysplasia (2) Tubular adenoma of colon: Comment: 2021=3 TA repeat in 3 years;2016=TA, Code(s): D12.6 - Benign neoplasm of colon, unspecified (3) Nonalcoholic fatty liver disease without nonalcoholic steatohepatitis (HELMS): Comment: BASELINE LABS; 02/2020 labs AST/ALT , ferritin is 161, baseline alpha fetoprotein is 4.6, autoimmune workup is negative, he only drinks occasional alcohol Hep Bs Antigen Negative Hep Bs Antibody NONREACTIVE Hep B Core Total Ab Nonreactive Hepatitis C Ab (EIA) Nonreactive HIV 1&2 Ab/P24 Ag 4thGn Nonreactive CURRENT LABS 12/06/22 WBC 6.1 Hgb 13.6 L Hct 41.0 L MCV 96.5 MCH 32.0 Plt Count 262 Estimated GFR > 60 Total Bilirubin 1.2 H AST 15 ALT 14 Alkaline Phosphatase 73 ULTRASOUND OF THE ABDOMEN 02/06/23 IMPRESSION: Echogenic slightly heterogeneous liver echotexture questionable for fatty infiltration versus hepatocellular disease. No evidence of cirrhosis or focal liver lesion. Limited visualization of the tail the pancreas. Code(s): K76.0 - Fatty (change of) liver, not elsewhere classified (4) Illiterate: Code(s): Z55.0 - Illiteracy and low-level literacy Plan Serbian #Linsey live He say she has been doing well, but he finds following a diet difficult. I am going do labs to try to reassure him as I think he just needs to try not gain a lot of weight I do not think he needs I will developmental training counselor him further about this at the next visit. He says when he coughs he feels something moving in the lower chest/sternum. On exam, this seem to only be a muscle pull or a cartilage problem, He is reassured and told that only time and rest can help this. Anatomy of the ribs explained. He continues to do well on his pantoprazole 40mg bid, and he had a focal area of Barretts esophagus on his last EGD so next year in 2024 when he is due for repeat colonoscopy we also should do an upper endoscopy. He was educated that he should never be want to go off of his acid reducing medications as this would increase his risk of esophageal cancer. If an another provider ever wants to take him off of his medications they should talk to our office 1st. Because the patient is worried about the state of his liver I will bring him back in 8 weeks and hope that we have the labs in the ultrasound at that time. Orders: Orders Alpha Fetoprotein Today K76.0 - Fatty (change of) liver, not elsewhere classified Comprehensive Met. Panel Today K76.0 - Fatty (change of) liver, not elsewhere classified US abdomen comp w elastography Today K76.0 - Fatty (change of) liver, not elsewhere classified Medications: Changed From sennosides (senna) 1-2 tabs qhs PO bedtime; 30 days 60 caps 6RF constipation K59.00 - Constipation, unspecified To sennosides (senna) 1-2 tabs qhs PO bedtime; 90 days 60 caps 1RF constipation K59.00 - Constipation, unspecified Refilled pantoprazole 40 mg PO BID 180 tabs 1RF K22.10 - Ulcer of esophagus without bleeding Coding Level of Care Code Est Pt Level 4 (44012) Diagnoses Peralta's esophagus determined by biopsy K22.70 Tubular adenoma of colon D12.6 Nonalcoholic fatty liver disease without nonalcoholic steatohepatitis (HELMS) K76.0 Illiterate Z55.0 Time Spent (min) 31
== END 2023-09-05 12:09 | disposition home or self-care (01) ==
PROVIDERS: PCP Internal Medicine; Visit Provider Nurse Practitioner
DX: K22.70 Barrett's esophagus without dysplasia (principal); D12.6 Benign neoplasm of colon, unspecified; K76.0 Fatty (change of) liver, not elsewhere classified; Z55.0 Illiteracy and low-level literacy
CPT/HCPCS: 99214

== ENCOUNTER → 2023-09-05 11:19 | Outpatient (BNVA) | payer OTHER, SELFPAY | PROVIDERS: PCP Internal Medicine; Visit Provider Nurse Practitioner | DX: K22.70 Barrett's esophagus without dysplasia (principal); K76.0 Fatty (change of) liver, not elsewhere classified; D12.6 Benign neoplasm of colon, unspecified; Z55.0 Illiteracy and low-level literacy | CPT/HCPCS: 99212 ==

== ENCOUNTER 2023-09-06 11:08 | Outpatient (REF) | payer OTHER, SELFPAY ==
[2023-09-06 12:34] LABS: Alanine Aminotransferase 18 U/L (0-40); Albumin Level 4.2 g/dL (3.5-5.0); Alkaline Phosphatase 68 U/L (39-117); Anion Gap 10 (12-20); Aspartate Amino Transferase 17 U/L (5-37); Bilirubin Total 0.6 mg/dL (0.0-1.0); Blood Urea Nitrogen 16 mg/dL (9-16); Calcium 9.4 mg/dL (8.4-10.2); Carbon Dioxide 28 mmol/L (22-29); Chloride 107 mmol/L (96-108); Estimated Glomerular Filt Rate > 60; Glucose Random 99 mg/dL (60-115); Potassium 4.2 mmol/L (3.3-5.1); Sodium 141 mmol/L (135-145); Total Protein 7.5 g/dL (6.5-8.0)
[2023-09-11 08:13] LABS: Alpha Fetoprotein 4.2 ng/mL (<6.1)
== END 2023-09-06 11:09 | disposition home or self-care (01) ==
LOC: HO.LAB 11:08
PROVIDERS: PCP Internal Medicine; Referring Provider Internal Medicine; Visit Provider Nurse Practitioner
DX: K76.0 Fatty (change of) liver, not elsewhere classified (principal)
CPT/HCPCS: 36415; 80053; 82105

== ENCOUNTER 2023-10-07 10:30 | Outpatient (REF) | payer OTHER, SELFPAY ==
--- NOTE | ~2023-10-07 | US_ITS ---
EXAMINATION: US COMPLETE ABDOMEN WITH LIVER ELASTOGRAPHY CLINICAL INFORMATION: Fatty liver. COMPARISON: Abdominal ultrasound dated 02/06/2023. TECHNIQUE: Real-time imaging of the abdominal viscera. Noninvasive ultrasound liver fibrosis assessment is performed using [employer]ci ElastPQ point quantification shear wave elastography (2D-SWE) with a C5-2 MHz transducer. Multiple elastography samples are obtained. FINDINGS: PANCREAS: Normal. The visualized pancreatic head and body are normal in appearance. The remainder of the pancreas is obscured from visualization by the overlying bowel gas. ABDOMINAL AORTA: The proximal, middle, and distal aortic segments are normal in caliber. INFERIOR VENA CAVA: Visualized portions are normal. LIVER: Normal. The liver demonstrates normal size, contour and echogenicity. No focal lesion or intrahepatic biliary duct dilatation. The right lobe measures 14.6 cm in length. The left lobe measures 8.2 cm in length. Portal flow is towards the liver (hepatopetal). Shear wave liver elastography median stiffness is 1.50 m/s (reference: normal median stiffness is 1.3 m/s or less). IQR/median stiffness to assess sampling precision is 0.12 (reference: good quality data set is IQR/median stiffness of 0.15 or less). GALLBLADDER: Normal. The gallbladder is physiologically distended without evidence of stones, sludge, polyps, wall thickening or pericholecystic fluid. COMMON BILE DUCT: Normal in caliber measuring 0.3 cm in diameter. RIGHT KIDNEY: Normal. No hydronephrosis. No renal calculi or focal parenchymal lesions. The kidney measures 11.2 cm in maximum dimension. LEFT KIDNEY: There is pelviectasis, without kal hydronephrosis. No renal calculi or focal parenchymal lesions. The kidney measures 10.9 cm in maximum dimension. SPLEEN: Normal. The spleen measures 10.3 cm in maximum dimension. FREE FLUID: None. US/US abdomen comp w elastography IMPRESSION: Liver elastography: In the absence of other known clinical signs, measurements rule out compensated advanced chronic liver disease. If there are known clinical signs, further testing may be needed for confirmation. REFERENCE: Society of Radiologists in Ultrasound Liver Stiffness Thresholds (2020): LIVER STIFFNESS THRESHOLDS: *Liver Stiffness equal or less than 1.3 m/s: High probability of being normal. *Liver Stiffness less than 1.7 m/s: In the absence of other known clinical signs, rules out compensated advanced chronic liver disease. *Liver Stiffness 1.7-2.1 m/s: Suggestive of compensated advanced chronic liver disease but need further test for confirmation. *Liver Stiffness over 2.1 m/s: Rules in compensated advanced chronic liver disease. *Liver Stiffness over 2.4 m/s: Suggestive of clinically significant portal hypertension. QUALITY OF DATA SET: *IQR/Median value equal or less than 0.15 implies a quality data set. *IQR/Median value over 0.15 implies a poor quality data set. SIGNIFICANT CHANGE FROM PRIOR EXAM: Significant change if liver stiffness measurement is 10% or greater from prior exam. OTHER CONSIDERATIONS: The stage of liver fibrosis may be overestimated in the setting of acute hepatitis, liver inflammation, elevated liver function tests, hepatic vascular congestion, obstructive cholestasis, non-fasting state, and infiltrative diseases such as amyloidosis and lymphoma. In some patients with NAFLD, the liver stiffness thresholds for compensated advanced chronic liver disease may be lower. In causes other than viral hepatitis and NAFLD, liver stiffness thresholds are not well established.
== END 2023-10-07 10:31 | disposition home or self-care (01) ==
LOC: HO.US 10:30
PROVIDERS: PCP Internal Medicine; Visit Provider Nurse Practitioner
DX: K76.0 Fatty (change of) liver, not elsewhere classified (principal)
CPT/HCPCS: 76700; 76981

== ENCOUNTER 2023-10-31 11:11 | Outpatient (AMB) | payer OTHER, SELFPAY ==
[2023-10-31 11:17] VITALS: BP 115/73; PULSE 67; BMI 26.8
--- NOTE | 2023-10-31 11:17 | A.OFFVIS_ITS ---
Intake Vital Signs 10/31/23 11:17 Height 5 ft 10 in Weight 186 lb 15.232 oz BMI 26.8 BP 115/73 Blood Pressure Location Lt brachial Position Sitting Pulse 67 Intake Visit Reasons: 8 weekfollow up Intake Note: Patient presents to in office visit today in follow up of labs and US. CC: Patient reports he continues feeling the same as last time he came into the office. He c/o pain from liver when he is hungry. Night Worker Required: Yes Night Worker Language: Somali Accompanied by: Self / Same As Patient Allergies crab Allergy (Intermediate, Verified 10/31/23 11:18) RASH No Known Drug Allergies Allergy (Unknown, Verified 10/31/23 11:18) none HPI 8 weekfollow up HPI Details Assessment & Plan (1) Peralta's esophagus determined by bi opsy: Code(s): K22.70 - Peralta's esophagus without dysplasia (2) Tubular adenoma of colon: Comment: 2021=3 TA repeat in 3 years;2016=TA, Code(s): D12.6 - Benign neoplasm of colon, unspecified (3) Nonalcoholic fatty liver disease wit hout nonalcoholic steatohepatitis (HELMS): Comment: BASELINE LABS; 02/2020 labs AST/ALT /, ferritin is 161, baseline alpha fetoprotein is 4.6, autoimmune workup is negative, he only drinks occasional alcohol Hep Bs Antigen Negative Hep Bs Antibody NONREACTIVE Hep B Core Total Ab Nonreactive Hepatitis C Ab (EIA) Nonreactive HIV 1&2 Ab/P24 Ag 4thGn Nonreactive CURRENT LABS 12/06/22 WBC 6.1 Hgb 13.6 L Hct 41.0 L MCV 96.5 MCH 32.0 Plt Count 262 Estimated GFR > 60 Total Bilirubin 1.2 H AST 15 ALT 14 Alkaline Phosphatase 73 ULTRASOUND OF THE ABDOMEN 02/06/23 IMPRESSION: Echogenic slightly heterogeneous liver echotexture questionable for fatty infiltration versus hepatocellular disease. No evidence of cirrhosis or focal liver lesion. Limited visualization of the tail the pancreas. Code(s): K76.0 - Fatty (change of) liver, not elsewhere classified (4) Illiterate: Code(s): Z55.0 - Illiteracy and low-level literacy Plan Somali #Pierre and Jazmyn live He say she has been doing well, but he finds following a diet difficult. I am going do labs to try to reassure him as I think he just needs to try not gain a lot of weight I do not think he needs I will addiction counselor him further about this at the next visit. He says when he coughs he feels something moving in the lower chest/sternum. On exam, this seem to only be a muscle pull or a cartilage problem, He is reassured and told that only time and rest can help this. Anatomy of the ribs explained. He continues to do well on his pantoprazole 40mg bid, and he had a focal area of Barretts esophagus on his last EGD so next year in 2024 when he is due for repeat colonoscopy we also should do an upper endoscopy. He was educated that he should never be want to go off of his acid reducing medications as this would increase his risk of esophageal cancer. If an another provider ever wants to take him off of his medications they should talk to our office 1st. Because the patient is worried about the state of his liver I will bring him back in 8 weeks and hope that we have the labs in the ultrasound at that time. Orders: Orders Alpha Fetoprotein Today K76.0 - Fatty (florentin nge of) liver, not elsewhere classif ied Comprehensive Met. Panel Today K76.0 - Fatty (florentin nge of) liver, not elsewhere classif ied US abdomen comp w elastography Today K76.0 - Fatty (florentin nge of) liver, not elsewhere classif ied Medications: Changed From sennosides (senna) 1-2 tabs qhs PO b edtime; 30 days 6 0 caps 6RF constip ation K59.00 - Constipat ion, unspecified To sennosides (senna) 1-2 tabs qhs PO b edtime; 90 days 6 0 caps 1RF constip ation K59.00 - Constipat ion, unspecified Refilled pantoprazole 40 mg PO BID 180 tabs 1RF K22.10 - Ulcer of esophagus without bleeding LABS: Laboratory Tests 09/06/23 11:17 Estimated GFR > 60 Total Bilirubin 0.6 AST 17 ALT 18 Alkaline Phosphata se 68 Alpha Fetoprotein 4.2 ULTRASOUND OF THE ABDOMEN WITH ELASTOGRAPHY (F0) 10/08/23 FINDINGS: PANCREAS: Normal. The visualized pancreatic head and body are normal in appearance. The remainder of the pancreas is obscured from visualization by the overlying bowel gas. ABDOMINAL AORTA: The proximal, middle, and distal aortic segments are normal in caliber. INFERIOR VENA CAVA: Visualized portions are normal. LIVER: Normal. The liver demonstrates normal size, contour and echogenicity. No focal lesion or intrahepatic biliary duct dilatation. The right lobe measures 14.6 cm in length. The left lobe measures 8.2 cm in length. Portal flow is towards the liver (hepatopetal). Shear wave liver elastography median stiffness is 1.50 m/s (reference: normal median stiffness is 1.3 m/s or less). IQR/median stiffness to assess sampling precision is 0.12 (reference: good quality data set is IQR/median stiffness of 0.15 or less). GALLBLADDER: Normal. The gallbladder is physiologically distended without evidence of stones, sludge, polyps, wall thickening or pericholecystic fluid. COMMON BILE DUCT: Normal in caliber measuring 0.3 cm in diameter. RIGHT KIDNEY: Normal. No hydronephrosis. No renal calculi or focal parenchymal lesions. The kidney measures 11.2 cm in maximum dimension. LEFT KIDNEY: There is pelviectasis, without kal hydronephrosis. No renal calculi or focal parenchymal lesions. The kidney measures 10.9 cm in maximum dimension. SPLEEN: Normal. The spleen measures 10.3 cm in maximum dimension. FREE FLUID: None. US/US abdomen comp w elastography IMPRESSION: Liver elastography: In the absence of other known clinical signs, measurements rule out compensated advanced chronic liver disease. If there are known clinical signs, further testing may be needed for confirmation. TODAY'S VISIT Somali #Jazmyn Live He continues on his pantoprazole 40mg bid with good effect. However, the senna gives him pain, so we will stop it and see if he really is constipated and if so consider a different agent. We review the liver tests and since all is very normal, I think this can be followed by his PCP and returned to our service if the LFT's rise greater than 2x the upper transaminase limits. He says that the only real GI problem is discomfort when he eats sweets or chocolate. This is relatively normal with SSBE and as we age - sugar is not really that good for the body as we age. He had concerns about the stomach nodule that we biopsied on his last EGD, this was benign. He had this very confused with thyroid nodules etc. ROV 6 mos. [facility] Medical History Physical exam Mild recurrent major depression B12 deficiency Family history of hypertension Insomnia Hypovitaminosis D Chronic low back pain Depression Tubular adenoma of colon Erosive esophagitis Nonalcoholic fatty liver disease without nonalcoholic steatohepatitis (HELMS) GERD (gastroesophageal reflux disease) Surgical History Hx of arthroscopy of left knee Hx of left inguinal hernia repair Hx of colonoscopy Family History Father HTN (hypertension) Stroke Epilepsy Mother Alzheimer disease Social History Housing: Apartment Are you a primary animal care provider to a significant other at home: No Do you presently have visiting nurse or other home services: No Alcohol intake: current Alcohol intake frequency: holidays/special occasions only Alcohol type: beer Patient Tobacco Use Status: Former Tobacco user Quit Date: 2017 Tobacco use type: Cigarette e-Cigarette/Vaping Use: Never Used Second Hand Smoke Exposure: No service: No Current occupational status: disabled Cognitive needs: No Hearing needs: No Vision needs: No Review of Systems Const Denies fatigue, Denies fever(s), Denies night sweats, Denies poor appetite and Denies weight loss ENT Reports Normal hearing present, Denies dental pain, Denies dysphagia, Denies hearing loss, Denies mouth pain, Denies odynophagia, Denies throat swelling, Denies tongue swelling and Reports other (Dentition adequate) Card Reports no additional complaints Resp Reports no additional complaints GI Details: Denies abdominal pain, Denies melena, Denies bloating, Denies hematochezia, Denies constipation, Denies GI cramping, Denies dysphagia, Denies excessive flatus, Denies early satiety, Reports heartburn, Denies diarrhea, Denies nausea, Denies odynophagia, Denies vomiting and Denies hematemesis Skin/Breast Denies pruritus, Denies lesions, Denies rash and Denies jaundice Neuro Reports Normal hearing present and Denies Abnormal speech present Endo Denies fatigue Aller/Immun Denies throat swelling and Denies tongue swelling Physical Exam Vital Signs: Last Vital Signs Pulse 67 10/31/23 11:17 BP 115/73 10/31/23 11:17 BMI result Body Mass Index 26.8 Const General: cooperative, no acute distress, well developed and well groomed Nutritional Appearance: average body habitus and well nourished Orientation/consciousness: oriented to person, oriented to place and oriented to time Limitations: language barrier and other limitations (Literacy level) HEENT Head: Yes normocephalic and Yes atraumatic Eyes General: appearance normal, both eyes and all related structures Pupils: Equal, round and reactive pupils present Neck Neck: Yes normal visual inspection and Yes no lymphadenopathy Thyroid: Thyroid normal Resp Effort & Inspection: normal respiratory effort and able to speak in complete sentences Auscultation: clear to auscultation bilaterally Cardio Rate: regular rate Rhythm: regular rhythm Heart sounds: Normal, physiologic split S2 sound present Peripheral pulses: radial pulses present and posterior tibial pulses present GI Inspection: No distended and No Abdominal panniculus present Palpation (GI): Soft to palpation, nontender, no guarding, not rigid and No hepatosplenomegaly present Percussion: Yes normal to percussion Auscultation: normal bowel sounds Rectal Exam - Male: Yes deferred Skin General skin exam: no rashes or lesions noted, turgor normal, skin not dry, no jaundice, No spider nevi and no striae Rashes: no rashes Nails: normal Neuro General: oriented to person, oriented to place and oriented to time Cranial nerves: Yes Equal, round and reactive pupils present and Yes Normal hearing present Speech: No Abnormal speech present Extrem General: Yes normal to inspection, No clubbing, No cyanosis and No edema Psych Appearance: grossly normal and well kempt Mental Status: mental status grossly normal Speech and movement: Normal speech and movement present Affect: normal affect Attitude: cooperative Thought process: Normal thought process present and not confabulating Thought content: Normal thought content present Insight: Limited insight present (Psych) Judgement: Limited judgement present (Psych) Results Reviewed Results Reviewed: Laboratory Tests 09/06/23 11:17 Estimated GFR > 60 Total Bilirubin 0.6 AST 17 ALT 18 Alkaline Phosphatase 68 Alpha Fetoprotein 4.2 ULTRASOUND OF THE ABDOMEN WITH ELASTOGRAPHY (F0) 10/08/23 FINDINGS: PANCREAS: Normal. The visualized pancreatic head and body are normal in appearance. The remainder of the pancreas is obscured from visualization by the overlying bowel gas. ABDOMINAL AORTA: The proximal, middle, and distal aortic segments are normal in caliber. INFERIOR VENA CAVA: Visualized portions are normal. LIVER: Normal. The liver demonstrates normal size, contour and echogenicity. No focal lesion or intrahepatic biliary duct dilatation. The right lobe measures 14.6 cm in length. The left lobe measures 8.2 cm in length. Portal flow is towards the liver (hepatopetal). Shear wave liver elastography median stiffness is 1.50 m/s (reference: normal median stiffness is 1.3 m/s or less). IQR/median stiffness to assess sampling precision is 0.12 (reference: good quality data set is IQR/median stiffness of 0.15 or less). GALLBLADDER: Normal. The gallbladder is physiologically distended without evidence of stones, sludge, polyps, wall thickening or pericholecystic fluid. COMMON BILE DUCT: Normal in caliber measuring 0.3 cm in diameter. RIGHT KIDNEY: Normal. No hydronephrosis. No renal calculi or focal parenchymal lesions. The kidney measures 11.2 cm in maximum dimension. LEFT KIDNEY: There is pelviectasis, without kal hydronephrosis. No renal calculi or focal parenchymal lesions. The kidney measures 10.9 cm in maximum dimension. SPLEEN: Normal. The spleen measures 10.3 cm in maximum dimension. FREE FLUID: None. US/US abdomen comp w elastography IMPRESSION: Liver elastography: In the absence of other known clinical signs, measurements rule out compensated advanced chronic liver disease. If there are known clinical signs, further testing may be needed for confirmation. Assessment & Plan Assessment & Plan (1) GERD (gastroesophageal reflux disease): Code(s): K21.9 - Gastro-esophageal reflux disease without esophagitis Qualifiers: Esophagitis presence: esophagitis presence not specified Qualified Code(s): K21.9 - Gastro-esophageal reflux disease without esophagitis (2) Constipation: Code(s): K59.00 - Constipation, unspecified (3) Nonalcoholic fatty liver disease without nonalcoholic steatohepatitis (HELMS): Comment: BASELINE LABS; 02/2020 labs AST/ALT 17/, ferritin is 161, baseline alpha fetoprotein is 4.6, autoimmune workup is negative, he only drinks occasional alcohol Hep Bs Antigen Negative Hep Bs Antibody NONREACTIVE Hep B Core Total Ab Nonreactive Hepatitis C Ab (EIA) Nonreactive HIV 1&2 Ab/P24 Ag 4thGn Nonreactive ULTRASOUND OF THE ABDOMEN WITH ELASTOGRAPHY (F0) 10/08/23 CURRENT LABS 11:17 Estimated GFR > 60 Total Bilirubin 0.6 AST 17 ALT 18 Alkaline Phosphatase 68 Alpha Fetoprotein 4.2 ULTRASOUND OF THE ABDOMEN WITH ELASTOGRAPHY (F0) 10/08/23 US/US abdomen comp w elastography IMPRESSION: Liver elastography: In the absence of other known clinical signs, measurements rule out compensated advanced chronic liver disease. If there are known clinical signs, further testing may be needed for confirmation. Code(s): K76.0 - Fatty (change of) liver, not elsewhere classified (4) Erosive esophagitis: Comment: This is in his history from a note gleaned from [facility] but I cannot find any corresponding EGD report Code(s): K22.10 - Ulcer of esophagus without bleeding (5) Illiterate: Code(s): Z55.0 - Illiteracy and low-level literacy (6) Peralta's esophagus determined by biopsy: Code(s): K22.70 - Peralta's esophagus without dysplasia Plan Somali #Tachira Live He continues on his pantoprazole 40mg bid with good effect. However, the senna gives him pain, so we will stop it and see if he really is constipated and if so consider a different agent. We review the liver tests and since all is very normal, I think this can be followed by his PCP and returned to our service if the LFT's rise greater than 2x the upper transaminase limits. He says that the only real GI problem is discomfort when he eats sweets or chocolate. This is relatively normal with SSBE and as we age - sugar is not really that good for the body as we age. He had concerns about the stomach nodule that we biopsied on his last EGD, this was benign. He had this very confused with thyroid nodules etc. ROV 6 mos. Coding Level of Care Code Est Pt Level 3 (61068) Diagnoses Gastroesophageal reflux disease, unspecified whether esophagitis present K21.9 Esophagitis presence: esophagitis presence not specified Constipation K59.00 Nonalcoholic fatty liver disease without nonalcoholic steatohepatitis (HELMS) K76.0 Erosive esophagitis K22.10 Illiterate Z55.0 Peralta's esophagus determined by biopsy K22.70
== END 2023-10-31 11:47 | disposition home or self-care (01) ==
PROVIDERS: PCP Internal Medicine; Visit Provider Nurse Practitioner
DX: K21.9 Gastro-esophageal reflux disease without esophagitis (principal); K59.00 Constipation, unspecified; K22.70 Barrett's esophagus without dysplasia
CPT/HCPCS: 99213

== ENCOUNTER → 2023-10-31 11:11 | Outpatient (BNVA) | payer OTHER, SELFPAY | PROVIDERS: PCP Internal Medicine; Visit Provider Nurse Practitioner | DX: K21.9 Gastro-esophageal reflux disease without esophagitis (principal); K59.00 Constipation, unspecified; K76.0 Fatty (change of) liver, not elsewhere classified; K22.70 Barrett's esophagus without dysplasia; Z79.899 Other long term (current) drug therapy; Z55.0 Illiteracy and low-level literacy | CPT/HCPCS: 99212 ==

== ENCOUNTER 2024-01-07 11:09 | Outpatient (AMB) | payer OTHER, SELFPAY ==
[2024-01-07 11:18] VITALS: BP 122/80; BMI 27.5
--- NOTE | 2024-01-07 11:18 | MHC.PC.OV ---
Vital Signs 01/07/24 11:18 Height 5 ft 10 in Weight 192 lb BMI 27.5 BP 122/80 Blood Pressure Location Lt brachial Position Sitting Intake Visit Reasons: depression Intake Note: Patient here for a follow up depression Medicaid Eligibility Specialist Required: No Accompanied by: Self / Same As Patient Allergies crab Allergy (Intermediate, Verified 01/07/24 11:27) RASH No Known Drug Allergies Allergy (Unknown, Verified 01/07/24 11:27) none Medication List - Last Reconciled 01/07/24 by Belen Brush MD cholecalciferol (vitamin D3) (Vitamin D3) 25 mcg PO DAILY ibuprofen 800 mg PO TID PRN pantoprazole 40 mg PO BID sennosides (senna) 1-2 tabs qhs PO bedtime; 90 days sertraline 200 mg (2 x 100 mg) PO DAILY 90 days trazodone 50 mg PO BEDTIME 90 days Tobacco use date assessed: 01/07/24 Dental Screening Dental Screen Date: 01/07/24 Did you have a dental visit in the last 12 months?: Yes Did you have a dental problem in the last 6 months where you did not have access to dental care?: No Was dental information given to patient?: Patient has dentist HPI HPI Comments History of Present Illness Details This is a 58-year-old male with GERD, constipation, mild major depression, insomnia and low vitamin-D that comes today for follow-up on his conditions. GERD stable with PPIs. Constipation stable with senna as needed. Depression well controlled with sertraline. Insomnia markedly improved with trazodone. On vitamin-D supplements for his low vitamin-D. Denies any chest pain or shortness of breath. Doing well. [facility] Medical History Physical exam Mild recurrent major depression B12 deficiency Family history of hypertension Insomnia Hypovitaminosis D Chronic low back pain Depression Tubular adenoma of colon Erosive esophagitis Nonalcoholic fatty liver disease without nonalcoholic steatohepatitis (HELMS) GERD (gastroesophageal reflux disease) Surgical History Hx of arthroscopy of left knee Hx of left inguinal hernia repair Hx of colonoscopy Family History Father HTN (hypertension) Stroke Epilepsy Mother Alzheimer disease Social History (Updated 01/07/24 @ 11:31 by Belen Brush MD) Housing: Apartment Are you a primary rn primary care to a significant other at home: No Do you presently have visiting nurse or other home services: No Alcohol intake: former Patient Tobacco Use Status: Former Tobacco user Quit Date: 2017 Tobacco use type: Cigarette e-Cigarette/Vaping Use: Never Used Second Hand Smoke Exposure: No service: No Current occupational status: disabled Cognitive needs: No Hearing needs: No Vision needs: No Questionnaire PHQ-9 Over the last 2 weeks, how often have you been bothered by any of the following problems? 1. Little interest or pleasure in doing things: not at all 2. Feeling down, depressed, or hopeless: not at all 3. Trouble falling or staying asleep, or sleeping too much: more than half the days 4. Feeling tired or having little energy: several days 5. Poor appetite or overeating: several days 6. Feeling bad about yourself - or that you are a failure or have let yourself or your family down: not at all 7. Trouble concentrating on things, such as reading the newspaper or watching television: not at all 8. Moving or speaking so slowly that other people could have noticed. Or the opposite - being so fidgety or restless that you have been moving around a lot more than usual: not at all 9. Thoughts that you would be better off or of hurting yourself in some way: not at all Total score: 4 Depression Screening Interpretation: Positive Depression Screening Follow-up: Existing condition and In treatment Depression Screening Done: Yes 85930 - PHQ-9 Billing: Yes Source: Developed by Drs. Von Cool, Rosalind Alexis, Jovani Kim and colleagues, with an educational anthony from [employer]. Thrive Questionnaire Date Thrive assessed: 01/07/24 I am a: Patient What is your living situation today?: I have a steady place to live Within the past 12 months, did the food you bought not last and you didn't have the money to get more?: Never true Within the past 12 months, did you worry whether your food would run out before you got money to buy more?: Never true Do you have trouble paying for medicines?: No Do you have trouble getting transportation to medical appointments?: No Do you have trouble paying your heating and electricity bill?: No Do you have trouble taking care of your child, family member or friend?: No Do you have trouble with day-to-day activities such as bathing, preparing meals, shopping, managing finances, etc.?: No Are you currently unemployed and looking for a job?: No Are you interested in more education?: No Please select the resources that you would like help with: None Currently or been in a relationship where the following occur: no concerns reported THRIVE Score: 0 AUDIT C Alcohol Use Questionnaire (AUDIT-C) 1. How often do you have a drink containing alcohol?: Never Total Score: 0 BRUNO-7 AMB Questionnaire BRUNO-7 Date BRUNO - 7 assessed: 01/07/24 Feeling nervous, anxious, or on edge: 2 = More than half the days Not being able to stop or control worryin = Not at all Worrying too much about different things: 1 = Several days Trouble relaxin = Not at all Being so restless that it is hard to sit still: 0 = Not at all Becoming easily annoyed or irritable: 2 = More than half the days Feeling afraid as if something awful might happen: 3 = Nearly every day Total BRUNO-7 score (0-4 normal; 5-9 mild; 10-14 moderate; 15-21 severe): 8 Source: Developed by Drs. Von Cool, Rosalind Alexis, Jovani Kim and colleagues, with an educational anthony from [employer]. BRUNO-7 Assessment Billing BRUNO-7 Assessment Tool: BRUNO-7 Assessment 70667 Review of Systems Const All systems reviewed & are unremarkable except as noted in HPI and below Eyes Reports no additional complaints, Denies change in vision and Denies other visual disturbances Card Denies chest pain at rest, Denies chest pain with activity, Denies edema, Denies irregular heart rhythm, Denies claudication, Denies dyspnea, Denies dyspnea on exertion, Denies orthopnea, Denies paroxysmal nocturnal dyspnea and Denies slow heart rate Resp Denies cough, Denies dyspnea and Denies dyspnea on exertion GI Denies abdominal pain, Denies change in bowel habits, Denies excessive flatus, Denies nausea and Denies vomiting Denies urinary hesitancy, Denies urinary incontinence and Denies urinary urgency Physical exam (Primary Care) Vital Signs: Last Vital Signs BP 122/80 01/07/24 11:18 BMI result Body Mass Index 27.5 Tobacco/Smoking Status: Tobacco use Status Tobacco use date assessed 01/07/24 01/07/24 11:24 Patient Tobacco Use Status Former Tobacco user 01/07/24 11:24 Tobacco use type Cigarette 01/07/24 11:24 e-Cigarette/Vaping Use Never Used 01/07/24 11:24 PHQ-9: PHQ-9 Score PHQ-9: Total score 4 01/07/24 11:24 Depression Screening Interpretation: Positive Depression Screening Follow-up: Existing condition and In treatment Thrive Assessment: Date of Thrive Assessment Date Thrive assessed 01/07/24 01/07/24 11:24 Currently or been in a relationship where the following occur: no concerns reported Resp Effort & Inspection: normal respiratory effort Auscultation: clear to auscultation bilaterally Cardio Jugular venous distension: no JVD Rate: regular rate Rhythm: regular rhythm Heart sounds: S1 normal heart sound present and S2 normal heart sound present Extrem General: Yes full ROM Psych Appearance: grossly normal Assessment and Plan Assessment & Plan (1) Mild recurrent major depression: Code(s): F33.0 - Major depressive disorder, recurrent, mild Plan: Cotinue Sertraline. (2) GERD (gastroesophageal reflux disease): Code(s): K21.9 - Gastro-esophageal reflux disease without esophagitis Qualifiers: Esophagitis presence: esophagitis presence not specified Qualified Code(s): K21.9 - Gastro-esophageal reflux disease without esophagitis Plan: Continue PPIs. (3) Constipation: Code(s): K59.00 - Constipation, unspecified Plan: Continue senna as needed. (4) Hypovitaminosis D: Code(s): E55.9 - Vitamin D deficiency, unspecified Plan: Continue vitamin-D supplements. (5) Insomnia: Code(s): G47.00 - Insomnia, unspecified Plan: Continue trazodone. Coding Level of Care Code Est Pt Level 4 (75066) Diagnoses Mild recurrent major depression F33.0 Gastroesophageal reflux disease, unspecified whether esophagitis present K21.9 Esophagitis presence: esophagitis presence not specified Constipation K59.00 Hypovitaminosis D E55.9 Insomnia G47.00 Additional Codes BRUNO-7 Assessment Billing - BRUNO-7 Assessment Tool: BRUNO-7 Assessment 95144 ([id number]) Time Spent (min) 23
== END 2024-01-07 11:40 | disposition home or self-care (01) ==
PROVIDERS: PCP Internal Medicine; Visit Provider Internal Medicine
DX: K21.9 Gastro-esophageal reflux disease without esophagitis (principal); K59.00 Constipation, unspecified; F33.0 Major depressive disorder, recurrent, mild; E55.9 Vitamin D deficiency, unspecified; G47.00 Insomnia, unspecified
CPT/HCPCS: 99214

== ENCOUNTER 2024-05-22 10:16 | Outpatient (AMB) | payer OTHER, SELFPAY ==
[2024-05-22 10:19] VITALS: BP 136/83; PULSE 71; BMI 26.9
--- NOTE | 2024-05-22 10:19 | MHC.OFFVIS ---
Vital Signs 05/22/24 10:19 Height 5 ft 10 in Weight 187 lb 6.287 oz BMI 26.9 BP 136/83 Blood Pressure Location Lt brachial Position Sitting Pulse 71 Intake Visit Reasons: Follow up Intake Note: Andrea returns to in office 6 months follow up of GERD. CC: Patient reports that if he eats too much chocolate and one episode of RUQ abd pain. 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 Accompanied by: Self / Same As Patient Allergies crab Allergy (Intermediate, Verified 05/22/24 10:23) RASH No Known Drug Allergies Allergy (Unknown, Verified 05/22/24 10:23) none HPI HPI Follow up: Details: Assessment & Plan (1) GERD (gastroesophageal reflux disease): Code(s): K21.9 - Gastro-esophageal reflux disease without esophagitis Qualifiers: Esophagitis presence: esophagitis presence not specified Qualified Code(s): K21.9 - Gastro-esophageal reflux disease without esophagitis (2) Constipation: Code(s): K59.00 - Constipation, unspecified (3) Nonalcoholic fatty liver disease without nonalcoholic steatohepatitis (HELMS): Comment: BASELINE LABS; 02/2020 labs AST/ALT 17/22, ferritin is 161, baseline alpha fetoprotein is 4.6, autoimmune workup is negative, he only drinks occasional alcohol Hep Bs Antigen Negative Hep Bs Antibody NONREACTIVE Hep B Core Total Ab Nonreactive Hepatitis C Ab (EIA) Nonreactive HIV 1&2 Ab/P24 Ag 4thGn Nonreactive ULTRASOUND OF THE ABDOMEN WITH ELASTOGRAPHY (F0) 10/08/23 CURRENT LABS 11:17 Estimated GFR > 60 Total Bilirubin 0.6 AST 17 ALT 18 Alkaline Phosphatase 68 Alpha Fetoprotein 4.2 ULTRASOUND OF THE ABDOMEN WITH ELASTOGRAPHY (F0) 10/08/23 US/US abdomen comp w elastography IMPRESSION: Liver elastography: In the absence of other known clinical signs, measurements rule out compensated advanced chronic liver disease. If there are known clinical signs, further testing may be needed for confirmation. Code(s): K76.0 - Fatty (change of) liver, not elsewhere classified (4) Erosive esophagitis: Comment: This is in his history from a note gleaned from [facility] but I cannot find any corresponding EGD report Code(s): K22.10 - Ulcer of esophagus without bleeding (5) Illiterate: Code(s): Z55.0 - Illiteracy and low-level literacy (6) Peralta's esophagus determined by biopsy: Code(s): K22.70 - Peralta's esophagus without dysplasia Plan Turkmen #Jazmyn Mcallister He continues on his pantoprazole 40mg bid with good effect. However, the senna gives him pain, so we will stop it and see if he really is constipated and if so consider a different agent. We review the liver tests and since all is very normal, I think this can be followed by his PCP and returned to our service if the LFT's rise greater than 2x the upper transaminase limits. He says that the only real GI problem is discomfort when he eats sweets or chocolate. This is relatively normal with SSBE and as we age - sugar is not really that good for the body as we age. He had concerns about the stomach nodule that we biopsied on his last EGD, this was benign. He had this very confused with thyroid nodules etc. ROV 6 mos. TODAY'S VISIT Turkmen #Zan and Nirmal He continues to do well on his bid pantoprazole. His only concern is that he has trouble dieting (this is in regard to his fatty liver) because his stomach hurts him when it is completely empty. We discussed eating more fibrous material so that it will stay in his stomach longer to help offset this and I recommend Benefiber or Citrucel. The last time we checked in August his transaminases were normal in his weight seems to be stable. Today will just do lab work to monitor as it is unlikely that we really need to do imaging with normal transaminases. Return office visit in 6 months and next year he will be due for his screening colonoscopy. [facility] Medical History (Updated 05/22/24 @ 10:20 by CHRISTINA Lake) Colon cancer screening Physical exam Mild recurrent major depression B12 deficiency Family history of hypertension Insomnia Hypovitaminosis D Chronic low back pain Depression Tubular adenoma of colon Erosive esophagitis Nonalcoholic fatty liver disease without nonalcoholic steatohepatitis (HELMS) GERD (gastroesophageal reflux disease) Surgical History Hx of arthroscopy of left knee Hx of left inguinal hernia repair Hx of colonoscopy Family History Father HTN (hypertension) Stroke Epilepsy Mother Alzheimer disease Social History (Updated 01/07/24 @ 11:31 by Belen Brush MD) Housing: Apartment Are you a primary intensive care medicine specialist to a significant other at home: No Do you presently have visiting nurse or other home services: No Alcohol intake: former Patient Tobacco Use Status: Former Tobacco user Tobacco use type: Cigarette e-Cigarette/Vaping Use: Never Used Second Hand Smoke Exposure: No service: No Current occupational status: disabled Cognitive needs: No Hearing needs: No Vision needs: No Review of Systems Const Denies fatigue, Denies fever(s), Denies night sweats, Denies poor appetite and Denies weight loss ENT Reports Normal hearing present, Denies dental pain, Denies dysphagia, Denies hearing loss, Denies mouth pain, Denies odynophagia, Denies throat swelling, Denies tongue swelling and Reports other (Dentition adequate) Card Reports no additional complaints Resp Reports no additional complaints GI Details: Denies abdominal pain, Denies melena, Denies bloating, Denies hematochezia, Denies constipation, Denies GI cramping, Denies dysphagia, Denies excessive flatus, Denies early satiety, Reports heartburn, Denies diarrhea, Denies nausea, Denies odynophagia, Denies vomiting and Denies hematemesis Skin/Breast Denies pruritus, Denies lesions, Denies rash and Denies jaundice Neuro Reports Normal hearing present and Denies Abnormal speech present Endo Denies fatigue Aller/Immun Denies throat swelling and Denies tongue swelling Physical Exam Const General: cooperative, no acute distress, well developed and well groomed Nutritional Appearance: average body habitus and well nourished Orientation/consciousness: oriented to person, oriented to place and oriented to time Limitations: language barrier and other limitations HEENT Head: Yes normocephalic and Yes atraumatic Eyes General: appearance normal, both eyes and all related structures Pupils: Equal, round and reactive pupils present Neck Neck: Yes normal visual inspection and Yes no lymphadenopathy Thyroid: Thyroid normal Resp Effort & Inspection: normal respiratory effort and able to speak in complete sentences Auscultation: clear to auscultation bilaterally Cardio Rate: regular rate Rhythm: regular rhythm Heart sounds: Normal, physiologic split S2 sound present Peripheral pulses: radial pulses present and posterior tibial pulses present GI Inspection: No distended and No Abdominal panniculus present Palpation (GI): Soft to palpation, nontender, no guarding, not rigid and No hepatosplenomegaly present Percussion: Yes normal to percussion Auscultation: normal bowel sounds Rectal Exam - Male: Yes deferred Skin General skin exam: no rashes or lesions noted, turgor normal, skin not dry, no jaundice, No spider nevi and no striae Rashes: no rashes Nails: normal Neuro General: oriented to person, oriented to place and oriented to time Cranial nerves: Yes Equal, round and reactive pupils present and Yes Normal hearing present Speech: No Abnormal speech present Extrem General: Yes normal to inspection, No clubbing, No cyanosis and No edema Psych Appearance: grossly normal and well kempt Mental Status: mental status grossly normal Speech and movement: Normal speech and movement present Affect: normal affect Attitude: cooperative Thought process: Normal thought process present and not confabulating Thought content: Normal thought content present Insight: Limited insight present (Psych) Judgement: Limited judgement present (Psych) Assessment & Plan Assessment & Plan (1) GERD (gastroesophageal reflux disease): Code(s): K21.9 - Gastro-esophageal reflux disease without esophagitis Category: Medical Qualifiers: Esophagitis presence: esophagitis presence not specified Qualified Code(s): K21.9 - Gastro-esophageal reflux disease without esophagitis (2) Illiterate: Code(s): Z55.0 - Illiteracy and low-level literacy Category: Social Hx (3) Constipation: Code(s): K59.00 - Constipation, unspecified Category: Medical (4) Nonalcoholic fatty liver disease without nonalcoholic steatohepatitis (HELMS): Comment: BASELINE LABS; 02/2020 labs AST/ALT , ferritin is 161, baseline alpha fetoprotein is 4.6, autoimmune workup is negative, he only drinks occasional alcohol Hep Bs Antigen Negative Hep Bs Antibody NONREACTIVE Hep B Core Total Ab Nonreactive Hepatitis C Ab (EIA) Nonreactive HIV 1&2 Ab/P24 Ag 4thGn Nonreactive ULTRASOUND OF THE ABDOMEN WITH ELASTOGRAPHY (F0) 10/08/23 CURRENT LABS 11:17 Estimated GFR > 60 Total Bilirubin 0.6 AST 17 ALT 18 Alkaline Phosphatase 68 Alpha Fetoprotein 4.2 ULTRASOUND OF THE ABDOMEN WITH ELASTOGRAPHY (F0) 10/08/23 US/US abdomen comp w elastography IMPRESSION: Liver elastography: In the absence of other known clinical signs, measurements rule out compensated advanced chronic liver disease. If there are known clinical signs, further testing may be needed for confirmation. Code(s): K76.0 - Fatty (change of) liver, not elsewhere classified Category: Medical Plan Turkmen #Zan and Nirmal He continues to do well on his bid pantoprazole. His only concern is that he has trouble dieting (this is in regard to his fatty liver) because his stomach hurts him when it is completely empty. We discussed eating more fibrous material so that it will stay in his stomach longer to help offset this and I recommend Benefiber or Citrucel. The last time we checked in August his transaminases were normal in his weight seems to be stable. Today will just do lab work to monitor as it is unlikely that we really need to do imaging with normal transaminases. Return office visit in 6 months and next year he will be due for his screening colonoscopy. Orders: Orders Comprehensive Met. Panel Today K76.0 - Fatty (change of) liver, not elsewhere classified Medications: Refilled pantoprazole 40 mg PO BID 180 tabs 1RF K22.10 - Ulcer of esophagus without bleeding Coding Level of Care Code Est Pt Level 3 (46441) Diagnoses Gastroesophageal reflux disease, unspecified whether esophagitis present K21.9 Esophagitis presence: esophagitis presence not specified Illiterate Z55.0 Constipation K59.00 Nonalcoholic fatty liver disease without nonalcoholic steatohepatitis (HELMS) K76.0
== END 2024-05-22 16:11 | disposition home or self-care (01) ==
PROVIDERS: PCP Internal Medicine; Visit Provider Nurse Practitioner
DX: K21.9 Gastro-esophageal reflux disease without esophagitis (principal); Z55.0 Illiteracy and low-level literacy; K59.00 Constipation, unspecified; K76.0 Fatty (change of) liver, not elsewhere classified
CPT/HCPCS: 99213

== ENCOUNTER 2024-05-22 10:16 | Outpatient (REF) | payer OTHER, SELFPAY ==
[2024-05-22 13:20] LABS: Alanine Aminotransferase 17 U/L (0-40); Alkaline Phosphatase 72 U/L (39-117); Anion Gap 9 (12-20); Aspartate Amino Transferase 16 U/L (5-37); Bilirubin Total 0.5 mg/dL (0.0-1.0); Blood Urea Nitrogen 10 mg/dL (9-16); Calcium 9.5 mg/dL (8.4-10.2); Carbon Dioxide 28 mmol/L (22-29); Chloride 105 mmol/L (96-108); Estimated Glomerular Filt Rate > 60; Glucose Random 97 mg/dL (60-115); Sodium 138 mmol/L (135-145); Total Protein 7.2 g/dL (6.5-8.0)
== END 2024-05-22 10:17 | disposition home or self-care (01) ==
LOC: HO.LAB 10:16
PROVIDERS: PCP Internal Medicine; Visit Provider Nurse Practitioner
DX: K76.0 Fatty (change of) liver, not elsewhere classified (principal); K21.9 Gastro-esophageal reflux disease without esophagitis; K59.00 Constipation, unspecified; Z55.0 Illiteracy and low-level literacy; K22.10 Ulcer of esophagus without bleeding; Z79.899 Other long term (current) drug therapy
CPT/HCPCS: 36415; 80053; 99212

== ENCOUNTER 2024-07-22 11:00 | Outpatient (AMB) | payer OTHER, SELFPAY ==
[2024-07-22 11:09] VITALS: BP 110/70; BMI 26.8
--- NOTE | 2024-07-22 11:09 | A.OFFPC_ITS ---
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 Accompanied by: Self / Same As Patient Allergies crab Allergy (Intermediate, Verified 07/22/24 11:19) RASH No Known Drug Allergies Allergy (Unknown, Verified 07/22/24 11:19) none Medication List - Last Reconciled 07/22/24 by Belen Brush MD cholecalciferol (vitamin D3) (Vitamin D3) 25 mcg PO DAILY ibuprofen 800 mg PO TID PRN pantoprazole 40 mg PO BID sennosides (senna) 1-2 tabs qhs PO bedtime; 90 days sertraline 200 mg (2 x 100 mg) PO DAILY 90 days trazodone 50 mg PO BEDTIME 90 days Tobacco use date assessed: 01/07/24 Dental Screening Dental Screen Date: 01/07/24 HPI HPI Comments History of Present Illness Details The patient is a 59-year-old male presenting for an annual physical examination. He has a history of major depressive disorder, generalized anxiety disorder, chronic insomnia, gastric disorder, constipation, essential hypertension, and a past tubular adenoma. The patient last received a tetanus vaccine in 2018 and is due for the next one in 2028. A colonoscopy conducted in 2021 revealed tubular adenoma, warranting a follow-up in 2024. He is under gastroenterology care for gastric problems and constipation, with a scheduled appointment for the following year. Medications include sertraline 200 mg daily for depression, anxiety, and insomnia, as well as trazodone 50 mg for sleep. Other medications involve vitamin D supplement, ibuprofen as needed for back pain, pantoprazole twice daily for stomach-related issues, and senna as needed for constipation. The patient reports betterment from a recent flu-like illness, experiencing fatigue but no chest pain, shortness of breath, fever, or persistent cough. He confirms a prior COVID-19 exposure without symptoms of COVID or flu and agrees to undergo testing. There is a family history of epilepsy and stroke in his father and Alzheimer's disease in his mother. The patient previously smoked and consumed alcohol but has since abstained. He reports recent congestion-related symptoms. - Upcoming COVID-19, flu, and RSV testin g - Routine lab tests ordered to assess ch olesterol, hemoglobin, vitamin D, glucose, renal and liver function - Annual influenza vaccine received - Tetanus vaccine up-to-date; next due i n 2028 - Colonoscopy repeated every three years due to history of tubular adenoma - Engagement with psychiatry for ongoing mental health management [facility] Medical History (Updated 07/22/24 @ 11:50 by Belen Brush MD) Physical exam Colon cancer screening Mild recurrent major depression B12 deficiency Family history of hypertension Insomnia Hypovitaminosis D Chronic low back pain Depression Tubular adenoma of colon Erosive esophagitis Nonalcoholic fatty liver disease without nonalcoholic steatohepatitis (HELMS) GERD (gastroesophageal reflux disease) Surgical History Hx of arthroscopy of left knee Hx of left inguinal hernia repair Hx of colonoscopy Family History Father HTN (hypertension) Stroke Epilepsy Mother Alzheimer disease Social History Housing: Apartment Are you a primary acute care assistant to a significant other at home: No Do you presently have visiting nurse or other home services: No Alcohol intake: former Patient Tobacco Use Status: Former Tobacco user Tobacco use type: Cigarette e-Cigarette/Vaping Use: Never Used Second Hand Smoke Exposure: No service: No Current occupational status: disabled Cognitive needs: No Hearing needs: No Vision needs: No Questionnaire Thrive Questionnaire Date Thrive assessed: 01/07/24 I am a: Patient What is your living situation today?: I have a steady place to live Within the past 12 months, did the food you bought not last and you didn't have the money to get more?: I choose not to answer this question Within the past 12 months, did you worry whether your food would run out before you got money to buy more?: I choose not to answer this question Do you have trouble paying for medicines?: I choose not to answer this question Do you have trouble getting transportation to medical appointments?: I choose not to answer this question Do you have trouble paying your heating and electricity bill?: I choose not to answer this question Do you have trouble taking care of your child, family member or friend?: I choose not to answer this question Do you have trouble with day-to-day activities such as bathing, preparing meals, shopping, managing finances, etc.?: I choose not to answer this question Are you currently unemployed and looking for a job?: I choose not to answer this question Are you interested in more education?: I choose not to answer this question Please select the resources that you would like help with: None Currently or been in a relationship where the following occur: I choose not to answer THRIVE Score: 0 AUDIT C Alcohol Use Questionnaire (AUDIT-C) 1. How often do you have a drink containing alcohol?: Never Total Score: 0 BRUNO-7 AMB Questionnaire BRUNO-7 Date BRUNO - 7 assessed: 01/07/24 Feeling nervous, anxious, or on edge: 0 = Not at all Not being able to stop or control worryin = Not at all Worrying too much about different things: 0 = Not at all Trouble relaxin = Not at all Being so restless that it is hard to sit still: 0 = Not at all Becoming easily annoyed or irritable: 0 = Not at all Feeling afraid as if something awful might happen: 0 = Not at all Total BRUNO-7 score (0-4 normal; 5-9 mild; 10-14 moderate; 15-21 severe): 0 Source: Developed by Drs. Von Cool, Rosalind Alexis, Jovani Kim and colleagues, with an educational anthony from [employer]. Review of Systems Const All systems reviewed & are unremarkable except as noted in HPI and below Reports body aches and Reports difficulty sleeping Card Denies chest pain at rest, Denies chest pain with activity, Denies edema, Denies irregular heart rhythm, Denies claudication, Denies dyspnea, Denies dyspnea on exertion, Denies orthopnea, Denies paroxysmal nocturnal dyspnea and Denies slow heart rate Resp Reports chest congestion, Reports cough, Reports excessive phlegm production, Denies dyspnea and Denies dyspnea on exertion GI Denies abdominal pain, Denies change in bowel habits, Denies excessive flatus, Denies nausea and Denies vomiting Neuro Denies lack of coordination Physical exam (Primary Care) Vital Signs: Last Vital Signs BP 110/70 07/22/24 11:09 BMI result Body Mass Index 26.8 Tobacco/Smoking Status: Tobacco use Status Tobacco use date assessed 01/07/24 07/22/24 11:12 Patient Tobacco Use Status Former Tobacco user 07/22/24 11:12 Tobacco use type Cigarette 07/22/24 11:12 e-Cigarette/Vaping Use Never Used 07/22/24 11:12 Thrive Assessment: Date of Thrive Assessment Date Thrive assessed 01/07/24 07/22/24 11:12 Currently or been in a relationship where the following occur: I choose not to answer HENMT Head: Yes normal to inspection, Yes normocephalic and Yes atraumatic Ears: external ears normal Eyes General: appearance normal, both eyes and all related structures Eyelids: Yes eyelids normal Conjunctivae: conjunctivae normal Neck Neck: Yes normal visual inspection and Yes supple Resp Effort & Inspection: normal respiratory effort Auscultation: clear to auscultation bilaterally Cardio Jugular venous distension: no JVD Rate: regular rate Rhythm: regular rhythm Heart sounds: S1 normal heart sound present and S2 normal heart sound present GI Inspection: Yes normal to inspection Palpation (GI): Soft to palpation and nontender Auscultation: normal bowel sounds Skin General skin exam: no rashes or lesions noted Neuro General: no focal motor deficits Extrem General: Yes full ROM Psych Appearance: grossly normal Coding Level of Care Code Est Pt Level 3 (22996) Est Pt Prev Care 40-64y(48584) Diagnoses Physical exam Z00.00 Mild recurrent major depression F33.0 URI (upper respiratory infection) J06.9 Time Spent (min) 32 Assessment & Plan Assessment & Plan (1) Physical exam: Code(s): Z00.00 - Encounter for general adult medical examination without abnormal findings Category: Medical (2) Mild recurrent major depression: Code(s): F33.0 - Major depressive disorder, recurrent, mild Category: Medical (3) URI (upper respiratory infection): Code(s): J06.9 - Acute upper respiratory infection, unspecified Category: Medical Plan - Continue sertraline and trazodone for management of depressive disorder, anxiety, and insomnia. - Conduct COVID-19, flu, and RSV testing to rule out current or recent infection. - Schedule routine labs for cholesterol, hemoglobin, vitamin D, and organ function. - Discuss the results and findings during the next follow-up appointment. - Ensure gastroenterology follow-up for management of gastric problems and constipation. Patient was informed and verbally consented to the use of an ambient scribe for clinic note documentation during this visit. I discussed with the patient the importance of maintaining regular medical follow-ups for chronic issues, including mental health and gastrointestinal conditions. We agreed to proceed with COVID-19, flu, and RSV testing due to recent exposure and symptoms. I emphasized the necessity of routine blood work to monitor various health parameters, especially given his history of certain medical conditions and family health history. We reviewed the management of his current medications and assessed his need for adjustments before psychiatric consultation. The patient understands the benefits and purposes of these evaluations and agrees to adhere to the suggested health maintenance strategies. Orders: Orders Complete Blood Count Auto Diff Today D64.9 - Anemia, unspecified Lipid Panel Today E78.5 - Hyperlipidemia, unspecified SARS-CoV2/FLU/RSV Today R09.89 - Other specified symptoms and signs involving the circulatory and respiratory systems Vitamin D 25-OH Total Today E55.9 - Vitamin D deficiency, unspecified IRON PROFILE Today D64.9 - Anemia, unspecified Comprehensive [place]. Panel Fast Today Z00.00 - Encounter for general adult medical examination without abnormal findings Patient Instructions: - Proceed for COVID-19, flu, and RSV testing at the hospital laboratory. - Continue current medications as prescribed. - Undergo routine laboratory tests as scheduled. - Follow up with gastroenterology as planned. - Maintain regular appointments for chronic mental and physical health issues. - Seek immediate care if experiencing new or worsening symptoms.
== END 2024-07-22 11:34 | disposition home or self-care (01) ==
PROVIDERS: PCP Internal Medicine; Visit Provider Internal Medicine
DX: Z00.00 Encounter for general adult medical examination without abnormal findings (principal); F33.0 Major depressive disorder, recurrent, mild; J06.9 Acute upper respiratory infection, unspecified

== ENCOUNTER 2024-07-22 11:00 | Outpatient (REF) | payer OTHER, SELFPAY ==
[2024-07-22 12:07] LABS: MANUAL DIFF FLAG NO
[2024-07-22 12:29] LABS: Basophils Absolute Auto 0.1 X10*3/uL (0.0-0.2); Basophils Percent Auto 0.5 % (0-2); Eosinophils Absolute Auto 0.5 X10*3/uL (0.0-0.4); Eosinophils Percent Auto 5.6 % (0-4); Hematocrit 40.5 % (42.0-52.0); Hemoglobin 13.5 g/dl (14.0-18.0); Imm Gran Abs Auto 0.03 X10*3/uL (0.00-0.03); Imm Gran Pct Auto 0.3 % (0.0-0.4); Lymphocytes Absolute Auto 2.7 X10*3/uL (1.2-4.9); Lymphocytes Percent Auto 28.8 % (20-40); Mean Corpuscular HGB Conc 33.3 g/dl (31.0-36.0); Mean Platelet Volume 9.2 fL (9.4-12.4); Monocytes Absolute Auto 1.2 X10*3/uL (0.1-1.2); Monocytes Percent Auto 12.9 % (2-11); Neutrophils Absolute Auto 4.9 x10*3/uL (2.0-8.3); Neutrophils Percent Auto 51.9 % (45-73); Platelet Count 274 X10*3/uL (160-400); Red Blood Count 4.22 X10*6/uL (4.60-5.80); Red Cell Distribution Width 12.7 % (11.0-16.0); White Blood Count 9.4 X10*3/uL (4.8-10.8)
[2024-07-22 12:54] LABS: Influenza A PCR NEGATIVE (Negative); Influenza B PCR NEGATIVE (Negative); Resp Syncy Virus RNA Qual PCR POSITIVE (Negative); SARS COV2 PCR INHOUSE NEGATIVE (Negative)
[2024-07-22 12:58] LABS: Alanine Aminotransferase 23 U/L (0-40); Alkaline Phosphatase 76 U/L (39-117); Anion Gap 9 (12-20); Aspartate Amino Transferase 23 U/L (5-37); Bilirubin Total 0.5 mg/dL (0.0-1.0); Blood Urea Nitrogen 15 mg/dL (9-16); Calcium 9.2 mg/dL (8.4-10.2); Carbon Dioxide 28 mmol/L (22-29); Chloride 106 mmol/L (96-108); Cholesterol 170 mg/dL (<200); Estimated Glomerular Filt Rate > 60; Glucose Fasting 101 mg/dL (60-99); HDL Cholesterol 37 mg/dL (>40); Iron 48 mcg/dL (45-160); LDL Cholesterol Calculated 116 mg/dL (<100); Percent Iron Saturation 16 % (15-50); Potassium 4.1 mmol/L (3.3-5.1); Sodium 139 mmol/L (135-145); Total Iron Binding Capacity 306 mcg/dL (228-428); Total Protein 7.3 g/dL (6.5-8.0); Triglycerides 85 mg/dL (<150); Unsaturated Iron Binding 258 ug/dL
[2024-07-22 13:18] LABS: Thyroid Stimulating Hormone 1.24 uIU/mL (0.32-4.0); Vitamin D 25-OH Total 35.8 ng/mL (>30)
[2024-07-22 13:23] LABS: Folate 10.6 ng/mL (> or = 4.0); Vitamin B12 310 pg/mL (200-900)
== END 2024-07-22 11:01 | disposition home or self-care (01) ==
LOC: HO.LAB 11:00
PROVIDERS: PCP Internal Medicine; Visit Provider Internal Medicine
DX: Z00.00 Encounter for general adult medical examination without abnormal findings (principal); F33.0 Major depressive disorder, recurrent, mild; J06.9 Acute upper respiratory infection, unspecified; D64.9 Anemia, unspecified; E78.5 Hyperlipidemia, unspecified; R09.89 Other specified symptoms and signs involving the circulatory and respiratory systems; E55.9 Vitamin D deficiency, unspecified; R41.3 Other amnesia; R35.1 Nocturia
CPT/HCPCS: 0241U; 80053; 80061; 82306; 82607; 82746; 83540; 84153; 84443; 85025; 99396

== ENCOUNTER 2024-09-18 10:18 | Outpatient (AMB) | payer OTHER, SELFPAY ==
--- NOTE | 2024-09-18 10:18 | A.OFFVIS_ITS ---
Vital Signs 09/18/24 10:19 Height 5 ft 10 in Weight 187 lb BMI 26.8 BP 122/78 Blood Pressure Location Rt brachial Position Sitting Intake Visit Reasons: INP-Other Amnesia Intake Note: Patient presents for amnesia. [employer] Services: [employer] Present [employer] Sealer Name: tiffanie agee Information Interpreted: non-clinical & clinical Allergies crab Allergy (Intermediate, Verified 09/18/24 10:21) RASH No Known Drug Allergies Allergy (Unknown, Verified 09/18/24 10:21) none Medication List - Last Reconciled 09/18/24 by LEEANNA Duke cholecalciferol (vitamin D3) (Vitamin D3) 25 mcg PO DAILY ibuprofen 800 mg PO TID PRN pantoprazole 40 mg PO BID sennosides (senna) 1-2 tabs qhs PO bedtime; 90 days sertraline 200 mg (2 x 100 mg) PO DAILY 90 days trazodone 50 mg PO BEDTIME 90 days HPI Comments Details: Right-handed 59-yr-old male presents for new pt evaluation of cognitive difficulties. Patient is unaccompanied. PMH notable for major depressive disorder and generalized anxiety disorder- f/b psychiatry, chronic insomnia, gastric disorder, constipation, essential hypertension, chronic low back pain, and past tubular adenoma- f/b GI, history of alcohol/tobacco use. Pt reports he has always had a poor memory. He states he has always had difficulty reading, concentrating, focusing, and remembering things. He states that this has been the same throughout his life. Pt was born in [place]. Pt reports as far as he knows he had normal gestational and . He had one seizure as an - unsure of trigger. He had difficulty learning to speak. He reports normal early gross motor skills. He was in special education for speech and concentration. He graduated from high school. 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 He is on disability. He moved his with his mother at age 10-12 yo. He has 2 dtrs- late 20s and early 20s- he can not state their ages exactly. He is living with his younger dtr. He is Ind w/ ADLs- but his back and LLE pain does make it difficult. His dtr helps him manage his finances. He can forget to turn off the stove, so his dtr helps w/ cooking. He he states it is difficult to learn something new. He does drive locally or w/ someone else, as he can become lost on his on in unfamiliar places. When he is anxious, his cognitive difficulties are worse. Patient states sertraline does help his mood and anxiety. He can have auditory hallucinations- may hear people talking, he can not tell me if this happens at night or during the day or both. He states he has tremor in both hands only when he is nervous. He can feel that he spaces out but is not sure. He does not sleep well- states he snores, has gasping arousals, and has daytime sleepiness. His psychiatrist advised him to request a sleep study. His dtr has told him that he talks and punches in his sleep. He states he has migraine when he does not eat or has strong light exposure. His father had epilepsy and in his 80s. His mother had Alzheimer's in her later years. [facility] Medical History Physical exam Colon cancer screening Mild recurrent major depression B12 deficiency Family history of hypertension Insomnia Hypovitaminosis D Chronic low back pain Depression Tubular adenoma of colon Erosive esophagitis Nonalcoholic fatty liver disease without nonalcoholic steatohepatitis (HELMS) GERD (gastroesophageal reflux disease) Surgical History Hx of arthroscopy of left knee Hx of left inguinal hernia repair Hx of colonoscopy Family History Father HTN (hypertension) Stroke Epilepsy Mother Alzheimer disease Social History Housing: Apartment Are you a primary rn wound care to a significant other at home: No Do you presently have visiting nurse or other home services: No Alcohol intake: former Patient Tobacco Use Status: Former Tobacco user Tobacco use type: Cigarette e-Cigarette/Vaping Use: Never Used Second Hand Smoke Exposure: No service: No Current occupational status: disabled Cognitive needs: No Hearing needs: No Vision needs: No Physical Exam Vital Signs: Last Vital Signs BP 122/78 09/18/24 10:19 BMI result Body Mass Index 26.8 Resp Effort & Inspection: normal respiratory effort and able to speak in complete sentences Neuro Other: Alert and oriented to person, time and place- he knew we were at a doctor's office in the 1st floor. On MMSE- patient stated he did not know the date, however he was able to tell us the correct date; he stated we were in the city [facility] poor pentagon drawing, patient unable to write a sentence, repeat phrase ?no ifs ands or buts ? omitted as this does not translate into [place]ic. Mild repetitiveness. Mild decreased facial expression and blink Mallampati stage IV Mild right she prominence, more so on cheek puff test- ? d/t right masseter hypertrophy. Bilateral TMJ crepitus, teeth crowding and lower frontal teeth wearing. No visible tremor BUE tightness Stands easily, antalgic gait. Cranial nerves: Yes Bilaterally intact EOM present, Yes Nystagmus not present and Yes Midline tongue present Cognition (Neuro): normal cognition Gait exam (Neuro): Normal gait present Motor exam (neuro): 5/5 motor strength present throughout Deep tendon reflexes (DTR's): Right triceps reflex intensity grade: 2+, Left triceps reflex intensity grade: 2+, Rt Biceps (C5, C6): 2+, Left biceps reflex intensity grade: 2+, Right brachioradialis reflex intensity grade: 2+, Left brachioradialis reflex intensity grade: 2+, Right patellar reflex intensity grade: 2+ and Left patellar reflex intensity grade: 2+ Pupils: Normal pupillary reactivity/response: bilateral Psych Appearance: grossly normal Speech and movement: Normal speech and movement present Attitude: cooperative Orientation What is the (year) (season) (date) (day) (month)?: year, season, date, day and month Where are we (state) (county) (town or city) (hospital) (floor)?: state, hospital/clinic and floor Registration Name of 3 unrelated objects clearly and slowly, then ask patient to repeat all 3 of them. (1st repeat determines score. Make sure they can repeat all three): object 1, object 2 and object 3 Attention & Calculation (CHOOSE ONE) Spell WORLD backwards (DLROW): 5 letters Language Show patient a wristwatch & ask what it is. Repeat for pencil.: watch and pencil Ask the patient to 'take a piece of paper with their right hand' 'fold paper in half' 'place paper on floor': take paper in right hand, fold paper in half and place paper on floor Score Score: 21 Assessment & Plan Assessment & Plan (1) Cognitive dysfunction: Comment: MMSE 21/29 - results may be limited due to illiterate status Code(s): F09 - Unspecified mental disorder due to known physiological condition Category: Medical (2) History of seizure: Code(s): Z87.898 - Personal history of other specified conditions Category: Medical (3) Snoring: Code(s): R06.83 - Snoring Category: Medical (4) Sleep difficulties: Code(s): G47.9 - Sleep disorder, unspecified Category: Medical (5) Excessive daytime sleepiness: Code(s): G47.19 - Other hypersomnia Category: Medical (6) Illiterate: Code(s): Z55.0 - Illiteracy and low-level literacy Category: Social Hx Plan 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 Patient describes lifelong speech and learning difficulty. Patient is unable to clarify specific etiology or a definitive developmental delay diagnosis. Patient is able to state that his anxiety can exacerbate his cognitive function. Patient is unable to state how often he has migraine, and if this has any effect on his cognition- we will address migraine further in follow-up. Patient advised to undergo initial cognitive dysfunction workup: Labs for common etiologies Brain MRI with and without, as patient has a history of childhood seizure Home sleep study, if inconclusive, consider In-lab PSG to assess for parasomnia as well. EEG Will follow-up upon review of above and patient to follow-up in clinic in 6 [facility] or sooner [facility]. Patient asked to bring family member with him to upcoming appointments, which patient agrees to. However, he would like all testing results reported to him directly as he does not want to worry his daughters. Orders: Orders MR head/brain wo/w con Today R41.3 - Other amnesia, Z87.898 - Personal history of other specified conditions Rheumatoid Factor Today D64.9 - Anemia, unspecified, E53.8 - Deficiency of other specified B group vitamins, E55.9 - Vitamin D deficiency, unspecified, F32.9 - Major depressive disorder, single episode, unspecified, R41.3 - Other amnesia Vitamin D 25-OH (D2 and D3) Today D64.9 - Anemia, unspecified, E53.8 - Deficiency of other specified B group vitamins, E55.9 - Vitamin D deficiency, unspecified, F32.9 - Major depressive disorder, single episode, unspecified, R41.3 - Other amnesia Homocysteine Today D64.9 - Anemia, unspecified, E53.8 - Deficiency of other specified B group vitamins, E55.9 - Vitamin D deficiency, unspecified, F32.9 - Major depressive disorder, single episode, unspecified, R41.3 - Other amnesia Methylmalonic Acid Today D64.9 - Anemia, unspecified, E53.8 - Deficiency of other specified B group vitamins, E55.9 - Vitamin D deficiency, unspecified, F32.9 - Major depressive disorder, single episode, unspecified, R41.3 - Other amnesia IRON PROFILE Today D64.9 - Anemia, unspecified, E53.8 - Deficiency of other specified B group vitamins, E55.9 - Vitamin D deficiency, unspecified, F32.9 - Major depressive disorder, single episode, unspecified, R41.3 - Other amnesia Hemoglobin A1c Today D64.9 - Anemia, unspecified, E53.8 - Deficiency of other specified B group vitamins, E55.9 - Vitamin D deficiency, unspecified, F32.9 - Major depressive disorder, single episode, unspecified, R41.3 - Other amnesia Syphilis Screen Today D64.9 - Anemia, unspecified, E53.8 - Deficiency of other specified B group vitamins, E55.9 - Vitamin D deficiency, unspecified, F32.9 - Major depressive disorder, single episode, unspecified, R41.3 - Other amnesia Complete Blood Count Auto Diff Today D64.9 - Anemia, unspecified, E53.8 - Deficiency of other specified B group vitamins, E55.9 - Vitamin D deficiency, unspecified, F32.9 - Major depressive disorder, single episode, unspecified, R41.3 - Other amnesia Ferritin Today D64.9 - Anemia, unspecified, E53.8 - Deficiency of other specified B group vitamins, E55.9 - Vitamin D deficiency, unspecified, F32.9 - Major depressive disorder, single episode, unspecified, R41.3 - Other amnesia Erythrocyte Sedimentation Rate Today D64.9 - Anemia, unspecified, E53.8 - Deficiency of other specified B group vitamins, E55.9 - Vitamin D deficiency, unspecified, F32.9 - Major depressive disorder, single episode, unspecified, R41.3 - Other amnesia Vitamin B6 Today D64.9 - Anemia, unspecified, E53.8 - Deficiency of other specified B group vitamins, E55.9 - Vitamin D deficiency, unspecified, F32.9 - Major depressive disorder, single episode, unspecified, R41.3 - Other amnesia EEG electroencephalogram Today F09 - Unspecified mental disorder due to known physiological condition, Z87.898 - Personal history of other specified conditions BELEN Reflex Titer and Pattern Today D64.9 - Anemia, unspecified, E53.8 - Deficiency of other specified B group vitamins, E55.9 - Vitamin D deficiency, unspecified, F32.9 - Major depressive disorder, single episode, unspecified, R41.3 - Other amnesia TSH reflex Free T4 Today D64.9 - Anemia, unspecified, E53.8 - Deficiency of other specified B group vitamins, E55.9 - Vitamin D deficiency, unspecified, F32.9 - Major depressive disorder, single episode, unspecified, R41.3 - Other amnesia Vitamin B12 and Folate Today D64.9 - Anemia, unspecified, E53.8 - Deficiency of other specified B group vitamins, E55.9 - Vitamin D deficiency, unspecified, F32.9 - Major depressive disorder, single episode, unspecified, R41.3 - Other amnesia HIV Ab/Ag Today D64.9 - Anemia, unspecified, E53.8 - Deficiency of other specified B group vitamins, E55.9 - Vitamin D deficiency, unspecified, F32.9 - Major depressive disorder, single episode, unspecified, R41.3 - Other amnesia Comprehensive Met. Panel Today D64.9 - Anemia, unspecified, E53.8 - Deficiency of other specified B group vitamins, E55.9 - Vitamin D deficiency, unspecified, F32.9 - Major depressive disorder, single episode, unspecified, R41.3 - Other amnesia CRP High Sensitivity Today D64.9 - Anemia, unspecified, E53.8 - Deficiency of other specified B group vitamins, E55.9 - Vitamin D deficiency, unspecified, F32.9 - Major depressive disorder, single episode, unspecified, R41.3 - Other amnesia Vitamin B1 Today D64.9 - Anemia, unspecified, E53.8 - Deficiency of other specified B group vitamins, E55.9 - Vitamin D deficiency, unspecified, F32.9 - Major depressive disorder, single episode, unspecified, R41.3 - Other amnesia RT home sleep study Today G47.19 - Other hypersomnia, G47.9 - Sleep disorder, unspecified, R06.83 - Snoring Coding Level of Care Code New Pt Level 4 (10472) Diagnoses Cognitive dysfunction F09 History of seizure Z87.898 Snoring R06.83 Sleep difficulties G47.9 Excessive daytime sleepiness G47.19 Illiterate Z55.0 [place] Sleepiness Scale Questions Sitting and reading: moderate chance of dozing Watching TV: moderate chance of dozing Sitting inactive in a theater, movie etc.: moderate chance of dozing As a passenger in a car for an hour without break: moderate chance of dozing Lying down in the afternoon when circumstances permit: moderate chance of dozing Sitting and talking to someone: would never doze Sitting quietly after lunch without alcohol: moderate chance of dozing In a car, while stopped for a few minutes in the traffic: would never doze ESS < 10: normal, ESS > 12: pathologic: 12
[2024-09-18 10:19] VITALS: BP 122/78; BMI 26.8
== END 2024-09-18 11:36 | disposition home or self-care (01) ==
PROVIDERS: PCP Internal Medicine; Visit Provider Nurse Practitioner Family
DX: R06.83 Snoring (principal); G47.9 Sleep disorder, unspecified; G47.19 Other hypersomnia; Z55.0 Illiteracy and low-level literacy; R41.89 Other symptoms and signs involving cognitive functions and awareness; Z87.898 Personal history of other specified conditions
CPT/HCPCS: 99204

== ENCOUNTER → 2024-09-18 10:18 | Outpatient (BNVA) | payer OTHER, SELFPAY | PROVIDERS: PCP Internal Medicine; Visit Provider Nurse Practitioner Family | DX: F09 Unspecified mental disorder due to known physiological condition (principal); R06.83 Snoring; G47.9 Sleep disorder, unspecified; G47.19 Other hypersomnia; Z55.0 Illiteracy and low-level literacy; Z87.898 Personal history of other specified conditions | CPT/HCPCS: 99202 ==

== ENCOUNTER 2024-09-21 11:35 | Outpatient (REF) | payer OTHER, SELFPAY ==
[2024-09-21 11:53] LABS: MANUAL DIFF FLAG NO
[2024-09-21 11:58] LABS: Basophils Percent Auto 0.5 % (0-2); Eosinophils Absolute Auto 0.3 X10*3/uL (0.0-0.4); Eosinophils Percent Auto 3.7 % (0-4); Hematocrit 41.3 % (42.0-52.0); Imm Gran Abs Auto 0.02 X10*3/uL (0.00-0.03); Imm Gran Pct Auto 0.3 % (0.0-0.4); Lymphocytes Absolute Auto 2.9 X10*3/uL (1.2-4.9); Lymphocytes Percent Auto 38.4 % (20-40); Mean Corpuscular HGB Conc 33.9 g/dl (31.0-36.0); Mean Corpuscular Hemoglobin 31.7 pg (27.0-33.0); Mean Corpuscular Volume 93.7 fL (80.0-98.0); Mean Platelet Volume 9.1 fL (9.4-12.4); Monocytes Absolute Auto 0.6 X10*3/uL (0.1-1.2); Monocytes Percent Auto 8.5 % (2-11); Neutrophils Absolute Auto 3.7 x10*3/uL (2.0-8.3); Neutrophils Percent Auto 48.6 % (45-73); Platelet Count 272 X10*3/uL (160-400); Red Blood Count 4.41 X10*6/uL (4.60-5.80); Red Cell Distribution Width 12.7 % (11.0-16.0); White Blood Count 7.5 X10*3/uL (4.8-10.8)
[2024-09-21 12:15] LABS: Estimated Average Glucose 120 mg/dL; Hemoglobin A1c % 5.8 % (<6.0); Total Hemoglobin (HGBA1C) 3743.9716 umol/L
[2024-09-21 12:37] LABS: Erythrocyte Sedimentation Rate 7 MM/HR (0-15)
[2024-09-21 12:50] LABS: HIV AB/AG Nonreactive (Nonreactive); HIV Num 1 0.06 S/CO (0.00-0.99); Syphilis Screen Nonreactive (Nonreactive)
--- OUTSIDE RECORDS SUMMARY | 2024-09-21 12:55 | XMS_ITS | Clinical Summary ---
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 Name Role Phone Unavailable Primary Care Provider Unavailabl e Surgical History Surgery Date Site/Laterality Comments HERNIA REPAIR PROCEDURE: HISTORICAL HERNIA REPAIR/ING Family History Relation Name Status Comments Father Alive Mother Alive Social History Tobacco Use Types Packs/Day Years Used Date Smoking Tobacco: Some Days Alcohol Use Standard Drinks/Week Comments Yes 0 (1 standard drink = 0.6 oz pur e alcohol) Sex and Gender Information Value Date Recorded Sex Assigned at Not on file Gender Identity Not on file Sexual Orientation Not on file Obstetrics History Last Filed Vital Signs Vital Sign Reading Time Taken Comments Blood Pressure 100/58 09/30/2022 1:25 PM EST R A rm Pulse 74 09/30/2022 1:25 PM EST Temperature - - Respiratory Rate - - Oxygen Saturation - - Inhaled Oxygen Concentration - - Weight - - Height - - Body Mass Index - - Plan of Treatment Health Maintenance Due Date Last Done Comments Pneumococcal Vaccine: Pediat rics (0 to 5 Years) and At-Risk Patients (6 to 64 Years) (1 of 2 - PCV) 1973 Hepatitis B Vaccines (1 of 3 - 19+ 3-dose series) 1986 Zoster Vaccines (1 of 2) 2017 Cholesterol Screening (Lipid Panel) 07/22/2022 Colorectal Cancer Screening: Colonoscopy 07/22/2022 Depression Screening 07/22/2022 HIV Screening 07/22/2022 Hepatitis C Screening 07/22/2022 Social Influencers of Health Screening 07/22/2022 DTaP,Tdap,and Td Vaccines (2 - Td or Tdap) 09/29/2023 09/29/2013 COVID-19 Vaccine (1 - 2023-2 5 season) 2024 Influenza Vaccine (#1) 2024 09/29/2013 HIB Vaccines Aged Out No longer eligi ble based on patient's age to complete this topic HPV Vaccines Aged Out No longer eligi ble based on patient's age to complete this topic Hepatitis A Vaccines Aged Out No long er eligible based on patient's age to complete this topic IPV Vaccines Aged Out No longer eligi ble based on patient's age to complete this topic MMR Vaccines Aged Out No longer eligi ble based on patient's age to complete this topic Meningococcal ACWY Vaccine Aged Out N o longer eligible based on patient's age to complete this topic RSV Immunization Patients Un anabel 20 months Aged Out No longer eligible b ased on patient's age to complete this topic Varicella Vaccines Aged Out No longer eligible based on patient's age to complete this topic
[2024-09-21 13:04] LABS: Alanine Aminotransferase 26 U/L (0-40); Albumin Level 4.1 g/dL (3.5-5.0); Alkaline Phosphatase 77 U/L (39-117); Anion Gap 10 (12-20); Aspartate Amino Transferase 25 U/L (5-37); Bilirubin Total 0.8 mg/dL (0.0-1.0); Blood Urea Nitrogen 17 mg/dL (9-16); Carbon Dioxide 24 mmol/L (22-29); Chloride 108 mmol/L (96-108); Estimated Glomerular Filt Rate > 60; Ferritin 81 ng/mL (20-250); Glucose Random 98 mg/dL (60-115); Iron 135 mcg/dL (45-160); Percent Iron Saturation 41 % (15-50); Potassium 4.1 mmol/L (3.3-5.1); Sodium 138 mmol/L (135-145); TSH reflex Free T4 2.96 uIU/mL (0.32-4.0); Total Iron Binding Capacity 333 mcg/dL (228-428); Total Protein 7.7 g/dL (6.5-8.0); Unsaturated Iron Binding 198 ug/dL
[2024-09-21 13:14] LABS: Folate 12.4 ng/mL (> or = 4.0); Vitamin B12 320 pg/mL (200-900)
[2024-09-21 17:00] LABS: Rheumatoid Factor < 13.0 IU/mL (<15.0)
[2024-09-22 19:39] LABS: CRP High Sensitivity 1.3 mg/L
[2024-09-22 22:18] LABS: Homocysteine 10.8 umol/L (<11.4)
[2024-09-24 11:28] LABS: Methylmalonic Acid 100 nmol/L (55-335)
[2024-09-25 07:48] LABS: Anti Nuclear Antibody Screen NEGATIVE (NEGATIVE)
[2024-09-25 11:43] LABS: Vitamin D 25-OH, D2 <4 ng/mL; Vitamin D 25-OH, D3 22 ng/mL; Vitamin D 25-OH, Total 22 ng/mL (30-100)
[2024-09-28 14:13] LABS: Vitamin B6 6.8 ng/mL (2.1-21.7)
[2024-09-30 16:53] LABS: Vitamin B1 7 nmol/L (8-30)
== END 2024-09-21 11:36 | disposition home or self-care (01) ==
LOC: HO.LAB 11:35
PROVIDERS: Absent Provider Nurse Practitioner Family; PCP Internal Medicine; Visit Provider Internal Medicine
DX: R41.3 Other amnesia (principal); E55.9 Vitamin D deficiency, unspecified; E53.8 Deficiency of other specified B group vitamins; F32.9 Major depressive disorder, single episode, unspecified; D64.9 Anemia, unspecified; Z13.1 Encounter for screening for diabetes mellitus
CPT/HCPCS: 36415; 80053; 82306; 82607; 82728; 82746; 83036; 83090; 83540; 83921; 84207; 84425; 84443; 85025; 85652; 86038; 86141; 86431; 86780; 87389

== ENCOUNTER → 2024-10-12 09:08 | Outpatient (BNV) | payer OTHER, SELFPAY | PROVIDERS: PCP Internal Medicine; Visit Provider Radiology Diagnostic Radiology | DX: R90.82 White matter disease, unspecified (principal) | CPT/HCPCS: 70553 ==

== ENCOUNTER 2024-10-12 09:13 | Outpatient (REF) | payer OTHER, SELFPAY ==
--- NOTE | ~2024-10-12 | MR_ITS ---
EXAMINATION: MR BRAIN WITHOUT THEN WITH IV CONTRAST HISTORY: R41.3 - Other amnesia TECHNIQUE: Sagittal T1, and axial T1, FLAIR, T2, gradient echo, and diffusion weighted MR images of the brain were obtained. Subsequently, axial, and coronal T1-weighted images were obtained after the administration of intravenous gadolinium. 8.5 mL Gadavist was administered. COMPARISON: None FINDINGS: There are scattered periventricular and subcortical white matter hyperintensities on the FLAIR and T2-weighted images which are nonspecific, but often seen in the setting of small vessel ischemic disease. These are slightly greater than expected for a patient of this age. There is no mass effect or midline shift. The ventricular system is normal in size and configuration. No intra or extra-axial fluid collections are identified. There are no foci of restricted diffusion. There is no abnormal contrast enhancement. Normal vascular flow voids are noted in the basilar and carotid arteries. The visualized paranasal sinuses are clear. MR/MR head/brain wo/w con IMPRESSION: Nonspecific white matter hyperintensities which are greater than expected for a patient of this age. Differential diagnostic considerations include small vessel ischemic disease, migraine, Lyme disease, vasculitis, and demyelinating disease. Electronically signed by: Von Caldera MD 10/13/2024 07:19 AM [facility]
--- OUTSIDE RECORDS SUMMARY | 2024-10-12 09:52 | XMS_ITS | Clinical Summary ---
Author Organization [facility] it Address [address] [place] [address] Care Team Providers Care Quality Assurance Associate Name Role Phone Unavailable Primary Care Provider [...] Recorded Sex Assigned at Not on file Legal Sex Male 5:37 AM EST Gender Identity Not on file Sexual Orientation [...] Health Maintenance Due Date Last Done Comments Hepatitis B Vaccines (1 of 3 - 19+ 3-dose series) 1986 Pneumococcal Vaccine: 50+ Ye ars (1 of 2 - PCV) 1986 Pneumococcal Vaccine: Pediat rics (0 to 5 Years) and At-Risk Patients (6 to 64 Years) (1 of 2 - PCV) 1986 Zoster Vaccines (1 of 2) 2017 Cholesterol Screening (Lipid Panel) 07/22/2022 Colorectal Cancer Screening: Colonoscopy 07/22/2022 Depression Screening 07/22/2022 HIV Screening 07/22/2022 Hepatitis C Screening 07/22/2022 Social Influencers of Health Screening 07/22/2022 DTaP,Tdap,and Td Vaccines (2 - Td or Tdap) 09/29/2023 09/29/2013 COVID-19 Vaccine ( - 2023-2 5 season) 2024 Influenza Vaccine [...] patient's age to complete this topic Meningococcal B Vacine Aged Out No lo nger eligible based on patient's age to complete this topic RSV Immunization Patients Un anabel 20 months Aged Out No longer eligible b ased on patient's age to complete this topic Varicella Vaccines Aged Out No longer eligible based on patient's age to complete this topic
[2024-10-12] MEDS: gadobutroL 10 ML VIAL IVPUSH (10:16)
== END 2024-10-12 09:14 | disposition home or self-care (01) ==
LOC: HO.MRI 09:13
PROVIDERS: PCP Internal Medicine; Visit Provider Nurse Practitioner Family
DX: R41.3 Other amnesia (principal); Z87.898 Personal history of other specified conditions
CPT/HCPCS: 70553; A9585

== ENCOUNTER 2024-11-17 10:23 | Outpatient (AMB) | payer OTHER, SELFPAY ==
--- NOTE | 2024-11-17 10:26 | MHC.OFFVIS ---
Vital Signs 11/17/24 10:28 Height 5 ft 10 in Weight 192 lb BMI 27.5 BP 123/76 Blood Pressure Location Rt brachial Position Sitting Pulse 65 Intake Visit Reasons: 6 mo f/u Constipation Intake Note: Patient in office today in follow up of constipation. CC: Patient c/o burning sensation from upper left ribcage area, and continues to have abd pain after eating chocolate. Automotive Teacher Required: Yes Automotive Teacher Language: Cymraes Accompanied by: Self / Same As Patient Allergies crab Allergy (Intermediate, Verified 11/17/24 10:30) RASH No Known Drug Allergies Allergy (Unknown, Verified 11/17/24 10:30) none HPI HPI 6 mo f/u Constipation: Details: Assessment & Plan (1) GERD (gastroesophageal reflux disease): Code(s): K21.9 - Gastro-esophageal reflux disease without esophagitis Category: Medical Qualifiers: Esophagitis presence: esophagitis presence not specified Qualified Code(s): K21.9 - Gastro-esophageal reflux disease without esophagitis (2) Illiterate: Code(s): Z55.0 - Illiteracy and low-level literacy Category: Social Hx (3) Constipation: Code(s): K59.00 - Constipation, unspecified Category: Medical (4) Nonalcoholic fatty liver disease without nonalcoholic steatohepatitis (HELMS): Comment: BASELINE LABS; 02/2020 labs AST/ALT 17/22, ferritin is 161, baseline alpha fetoprotein is 4.6, autoimmune workup is negative, he only drinks occasional alcohol Hep Bs Antigen Negative Hep Bs Antibody NONREACTIVE Hep B Core Total Ab Nonreactive Hepatitis C Ab (EIA) Nonreactive HIV 1&2 Ab/P24 Ag 4thGn Nonreactive ULTRASOUND OF THE ABDOMEN WITH ELASTOGRAPHY (F0) 10/08/23 CURRENT LABS 11:17 Estimated GFR > 60 Total Bilirubin 0.6 AST 17 ALT 18 Alkaline Phosphatase 68 Alpha Fetoprotein 4.2 ULTRASOUND OF THE ABDOMEN WITH ELASTOGRAPHY (F0) 10/08/23 US/US abdomen comp w elastography IMPRESSION: Liver elastography: In the absence of other known clinical signs, measurements rule out compensated advanced chronic liver disease. If there are known clinical signs, further testing may be needed for confirmation. Code(s): K76.0 - Fatty (change of) liver, not elsewhere classified Category: Medical Plan Cymraes #Zan and Nirmal He continues to do well on his bid pantoprazole. His only concern is that he has trouble dieting (this is in regard to his fatty liver) because his stomach hurts him when it is completely empty. We discussed eating more fibrous material so that it will stay in his stomach longer to help offset this and I recommend Benefiber or Citrucel. The last time we checked in August his transaminases were normal and his weight seems to be stable. Today will just do lab work to monitor as it is unlikely that we really need to do imaging with normal transaminases. Return office visit in 6 months and next year he will be due for his screening colonoscopy. Orders: Orders Comprehensive Met. Panel Today K76.0 - Fatty (change of) liver, not elsewhere classified Medications: Refilled pantoprazole 40 mg PO BID 180 tabs 1RF K22.10 - Ulcer of esophagus without bleeding LABS: Laboratory Tests 09/21/24 11:52 Estimated GFR > 60 Hemoglobin A1c % 5.8 Total Bilirubin 0.8 AST 25 ALT 26 Alkaline Phosphatase 77 C-React Prot High Sens 1.3 TSH 2.96 TODAY'S VISIT Cymraes #Roro He continues to do well on his bid pantoprazole. We review the transaminases and they are trending up slightly but he has gained 4 lbs. I educate him that the goal will be to keep his weight controlled as he ages to keep his liver healthy. He has some burning that troubles him when his stomach is empty. He is due for repeat colonoscopy this year r/t 3 TA's 3 years ago, will repeat as he is agreeable and we will add EGD as he has a hx of erosive esophagitis in 2016. HE is being tested for LUBNA r/t snoring but not other respiratory problems, and he denies any cardiac problems. No ID problems. He has a hx of TA's.. ROV 1 year and after procedure. [facility] Medical History (Updated 11/17/24 @ 12:58 by CHRISTINA Lake) History of seizure B12 deficiency Family history of hypertension Diverticulosis of colon Epigastric pain Physical exam URI (upper respiratory infection) Colon cancer screening Mild recurrent major depression Insomnia Hypovitaminosis D Chronic low back pain Depression Tubular adenoma of colon Erosive esophagitis Nonalcoholic fatty liver disease without nonalcoholic steatohepatitis (HELMS) GERD (gastroesophageal reflux disease) Surgical History Hx of arthroscopy of left knee Hx of left inguinal hernia repair Hx of colonoscopy Family History Father HTN (hypertension) Stroke Epilepsy Mother Alzheimer disease Social History Housing: Apartment Are you a primary restorative care technician to a significant other at home: No Do you presently have visiting nurse or other home services: No Alcohol intake: former Patient Tobacco Use Status: Former Tobacco user Tobacco use type: Cigarette e-Cigarette/Vaping Use: Never Used Second Hand Smoke Exposure: No service: No Current occupational status: disabled Cognitive needs: No Hearing needs: No Vision needs: No Review of Systems Const Denies fatigue, Denies fever(s), Denies night sweats, Denies poor appetite, Reports snoring and Denies weight loss ENT Reports Normal hearing present, Denies dental pain, Denies dysphagia, Denies hearing loss, Denies mouth pain, Denies odynophagia, Denies throat swelling, Denies tongue swelling and Reports other (Dentition adequate) Card Reports no additional complaints Resp Reports snoring GI Details: Denies abdominal pain, Denies melena, Reports bloating, Denies hematochezia, Reports constipation, Denies GI cramping, Denies dysphagia, Denies excessive flatus, Denies early satiety, Reports heartburn, Denies diarrhea, Denies nausea, Denies odynophagia, Denies vomiting and Denies hematemesis Skin/Breast Denies pruritus, Denies lesions, Denies rash and Denies jaundice Neuro Reports Normal hearing present, Denies Abnormal speech present and Reports memory loss Psych Reports anxiety and Reports memory loss Endo Denies fatigue Aller/Immun Denies throat swelling and Denies tongue swelling Physical Exam Vital Signs: Last Vital Signs Pulse 65 11/17/24 10:28 BP 123/76 11/17/24 10:28 BMI result Body Mass Index 27.5 Const General: cooperative, no acute distress, well developed and well groomed Nutritional Appearance: average body habitus and well nourished Orientation/consciousness: oriented to person, oriented to place and oriented to time Limitations: language barrier HEENT Head: Yes normocephalic and Yes atraumatic Eyes General: appearance normal, both eyes and all related structures Pupils: Equal, round and reactive pupils present Neck Neck: Yes normal visual inspection and Yes no lymphadenopathy Thyroid: Thyroid normal Resp Effort & Inspection: normal respiratory effort and able to speak in complete sentences Auscultation: clear to auscultation bilaterally Cardio Rate: regular rate Rhythm: regular rhythm Heart sounds: Normal, physiologic split S2 sound present Peripheral pulses: radial pulses present and posterior tibial pulses present GI Inspection: No distended and No Abdominal panniculus present Palpation (GI): Soft to palpation, nontender, no guarding, not rigid and No hepatosplenomegaly present Percussion: Yes normal to percussion Auscultation: normal bowel sounds Rectal Exam - Male: Yes deferred Skin General skin exam: no rashes or lesions noted, turgor normal, skin not dry, no jaundice, No spider nevi and no striae Rashes: no rashes Nails: normal Neuro General: oriented to person, oriented to place and oriented to time Cranial nerves: Yes Equal, round and reactive pupils present and Yes Normal hearing present Speech: No Abnormal speech present Extrem General: Yes normal to inspection, No clubbing, No cyanosis and No edema Psych Appearance: grossly normal and well kempt Mental Status: mental status grossly normal Speech and movement: Normal speech and movement present Affect: normal affect Attitude: cooperative Thought process: Normal thought process present and not confabulating Thought content: Normal thought content present Insight: Limited insight present (Psych) Judgement: Limited judgement present (Psych) Results Reviewed Results Reviewed: Laboratory Tests 09/21/24 11:52 Estimated GFR > 60 Hemoglobin A1c % 5.8 Total Bilirubin 0.8 AST 25 ALT 26 Alkaline Phosphatase 77 C-React Prot High Sens 1.3 TSH 2.96 Assessment & Plan Assessment & Plan (1) Peralta's esophagus determined by biopsy: Code(s): K22.70 - Peralta's esophagus without dysplasia Category: Medical (2) Erosive esophagitis: Comment: This is in his history from a note gleaned from [facility] but I cannot find any corresponding EGD report Code(s): K22.10 - Ulcer of esophagus without bleeding Category: Medical (3) Nonalcoholic fatty liver disease without nonalcoholic steatohepatitis (HELMS): Comment: BASELINE LABS; 02/2020 labs AST/ALT /, ferritin is 161, baseline alpha fetoprotein is 4.6, autoimmune workup is negative, he only drinks occasional alcohol Hep Bs Antigen Negative Hep Bs Antibody NONREACTIVE Hep B Core Total Ab Nonreactive Hepatitis C Ab (EIA) Nonreactive HIV 1&2 Ab/P24 Ag 4thGn Nonreactive ULTRASOUND OF THE ABDOMEN WITH ELASTOGRAPHY (F0) 10/08/23 CURRENT LABS 11:17 Estimated GFR > 60 Total Bilirubin 0.6 AST 17 ALT 18 Alkaline Phosphatase 68 Alpha Fetoprotein 4.2 ULTRASOUND OF THE ABDOMEN WITH ELASTOGRAPHY (F0) 10/08/23 US/US abdomen comp w elastography IMPRESSION: Liver elastography: In the absence of other known clinical signs, measurements rule out compensated advanced chronic liver disease. If there are known clinical signs, further testing may be needed for confirmation. Code(s): K76.0 - Fatty (change of) liver, not elsewhere classified Category: Medical (4) GERD (gastroesophageal reflux disease): Code(s): K21.9 - Gastro-esophageal reflux disease without esophagitis Category: Medical Qualifiers: Esophagitis presence: esophagitis presence not specified Qualified Code(s): K21.9 - Gastro-esophageal reflux disease without esophagitis (5) Tubular adenoma of colon: Comment: 2021=3 TA repeat in 3 years;2016=TA, Code(s): D12.6 - Benign neoplasm of colon, unspecified Category: Medical (6) Illiterate: Code(s): Z55.0 - Illiteracy and low-level literacy Category: Medical (7) Pre-op examination: Code(s): Z01.818 - Encounter for other preprocedural examination Category: Medical Plan Cymraes #Roro He continues to do well on his bid pantoprazole. We review the transaminases and they are trending up slightly but he has gained 4 lbs. I educate him that the goal will be to keep his weight controlled as he ages to keep his liver healthy. He has some burning that troubles him when his stomach is empty. He is due for repeat colonoscopy this year r/t 3 TA's 3 years ago, will repeat as he is agreeable and we will add EGD as he has a hx of erosive esophagitis in 2016. HE is being tested for LUBNA r/t snoring but not other respiratory problems, and he denies any cardiac problems. No ID problems. He has a hx of TA's.. ROV 1 year and after procedure. Orders: Orders EGD - GI Use Only Today D12.6 - Benign neoplasm of colon, unspecified, K22.10 - Ulcer of esophagus without bleeding, K22.70 - Peralta's esophagus without dysplasia Medications: New bisacodyl (Dulcolax (bisacodyl)) 10 mg (2 x 5 mg) PO BEDTIME 4 tabs 0RF 2 days peg 3350-electrolytes 236-22.74-6.74 -5.86 gram (Golytely) until fecal effluent is clear; do not exceed a total volume of 2,000 mL 240 mL PO Q10M 4,000 mL 0RF 1 day Z12.11 - Encounter for screening for malignant neoplasm of colon Refilled sennosides (senna) 1-2 tabs qhs PO bedtime; 60 caps 2RF constipation 90 days K59.00 - Constipation, unspecified pantoprazole 40 mg PO BID 180 tabs 2RF K22.10 - Ulcer of esophagus without bleeding Coding Level of Care Code Est Pt Level 4 (15621) Diagnoses Peralta's esophagus determined by biopsy K22.70 Erosive esophagitis K22.10 Nonalcoholic fatty liver disease without nonalcoholic steatohepatitis (HELMS) K76.0 Gastroesophageal reflux disease, unspecified whether esophagitis present K21.9 Esophagitis presence: esophagitis presence not specified Tubular adenoma of colon D12.6 Illiterate Z55.0 Pre-op examination Z01.818 Time Spent (min) 34
[2024-11-17 10:28] VITALS: BP 123/76; PULSE 65; BMI 27.5
--- OUTSIDE RECORDS SUMMARY | 2024-11-17 12:17 | XMS_ITS | Clinical Summary ---
Author Organization [employer] [facility] it Address [address] [place] [address] Care Team Providers Care Turnstile Attendant Name Role Phone Unavailable Primary Care Provider [...]
== END 2024-11-17 11:05 | disposition home or self-care (01) ==
LOC: HO.HGI 10:24
PROVIDERS: PCP Internal Medicine; Visit Provider Nurse Practitioner
DX: K22.70 Barrett's esophagus without dysplasia (principal); K22.10 Ulcer of esophagus without bleeding; K76.0 Fatty (change of) liver, not elsewhere classified; K21.9 Gastro-esophageal reflux disease without esophagitis; D12.6 Benign neoplasm of colon, unspecified; Z55.0 Illiteracy and low-level literacy; Z01.818 Encounter for other preprocedural examination
CPT/HCPCS: 99214

== ENCOUNTER → 2024-11-17 10:23 | Outpatient (BNVA) | payer OTHER, SELFPAY | PROVIDERS: PCP Internal Medicine; Visit Provider Nurse Practitioner | DX: Z01.818 Encounter for other preprocedural examination (principal); K21.9 Gastro-esophageal reflux disease without esophagitis; K22.70 Barrett's esophagus without dysplasia; K22.10 Ulcer of esophagus without bleeding; K76.0 Fatty (change of) liver, not elsewhere classified; D12.6 Benign neoplasm of colon, unspecified; Z55.0 Illiteracy and low-level literacy | CPT/HCPCS: 99212 ==

== ENCOUNTER 2024-12-10 11:46 | Outpatient (REF) | payer OTHER, SELFPAY ==
--- NOTE | 2024-12-10 11:51 | EEG_ITS ---
This is a 16-channel EEG with an EKG lead. The patient is reported awake during the tracing. Background EEG rhythm is low amplitude fast with no obvious asymmetry or paroxysmal tendency. The patient transitioned into drowsiness with mostly theta range slowing with no obvious asymmetry or paroxysmal tendency. Photic stimulation does not produce any significant abnormality. Hyperventilation is not performed. Cardiac lead does not reveal any significant abnormality. IMPRESSION: No significant abnormality noted on this EEG. MD NEHEMIAS Chávez/ROSIE / [phone]
--- OUTSIDE RECORDS SUMMARY | 2024-12-10 14:08 | XMS_ITS | Clinical Summary ---
Author Organization [employer] [facility] it Address [address] [place] [address] Care Team Providers Care Game Moderator Name Role Phone Unavailable Primary Care Provider [...] Td or Tdap) 09/29/2023 09/29/2013 COVID-19 Vaccine (2023-2 5 season) 2024 Influenza Vaccine (Season Ended) 2025 09/29/19 14 HIB Vaccines Aged Out No longer eligi [...] age to complete this topic Meningococcal B Vaccine Aged Out No l onger eligible based on patient's age to complete this topic RSV Immunization Patients Un anabel 20 months Aged Out No longer eligible b ased on patient's age to complete this topic Varicella Vaccines Aged Out No longer eligible based on patient's age to complete this topic
== END 2024-12-10 11:47 | disposition home or self-care (01) ==
LOC: HO.NEURO 11:46
PROVIDERS: PCP Internal Medicine; Visit Provider Nurse Practitioner Family
DX: Z09 Encounter for follow-up examination after completed treatment for conditions other than malignant neoplasm (principal); F09 Unspecified mental disorder due to known physiological condition; Z87.898 Personal history of other specified conditions
CPT/HCPCS: 95816

== ENCOUNTER 2025-01-20 10:43 | Outpatient (AMB) | payer OTHER, SELFPAY ==
[2025-01-20 10:45] VITALS: BP 130/80; BMI 27.7
--- NOTE | 2025-01-20 10:45 | A.OFFPC_ITS ---
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: No Accompanied by: Self / Same As Patient Allergies crab Allergy (Intermediate, Verified 01/20/25 11:13) RASH Medication List - Last Reconciled 01/20/25 by Belen Brush MD bisacodyl (Dulcolax (bisacodyl)) 10 mg (2 x 5 mg) PO BEDTIME 2 days cholecalciferol (vitamin D3) (Vitamin D3) 50 mcg (2 x 25 mcg (1,000 unit)) PO DAILY 90 days ibuprofen 800 mg PO TID PRN pantoprazole 40 mg PO BID peg 3350-electrolytes 236-22.74-6.74 -5.86 gram (Golytely) 240 mL PO Q10M 1 day sennosides (senna) 1-2 tabs qhs PO bedtime; 90 days sertraline 200 mg (2 x 100 mg) PO DAILY 90 days thiamine HCl (vitamin B1) 100 mg PO DAILY 90 days trazodone 50 mg PO BEDTIME 90 days Tobacco use date assessed: 01/20/25 Dental Screening Dental Screen Date: 01/20/25 Did you have a dental visit in the last 12 months?: Yes Did you have a dental problem in the last 6 months where you did not have access to dental care?: No Was dental information given to patient?: Patient has dentist HPI HPI Comments History of Present Illness Details The patient is a 59-year-old male presenting with follow-up appointments for several chronic medical concerns including depression, insomnia, constipation, gastroesophageal reflux disease (GERD), and anxiety. The patient's depression is managed via psychiatry with sertraline 200mg. B12 levels were noted to be low previously but are now within normal range along with adequate folic acid levels. The patient experiences dizziness upon sleeping and denies episodes of chest pain or shortness of breath. Cognitive dysfunction have prompted a neurology consultation with no specific findings. He has ceased tobacco use as well as alcohol consumption, though both were previously present in his lifestyle. Constipation management includes bisacodyl and pantoprazole, while trazodone aids sleep disturbances. Vitamin D and vitamin A B1 are part of his supplementation regimen. The patient has an allergy to crab, which causes a rash. Plans are in place for laboratory assessments to evaluate ongoing bodily functions and health improvements. [facility] Medical History (Updated 01/20/25 @ 12:23 by Belen Brush MD) History of seizure B12 deficiency Family history of hypertension Diverticulosis of colon Epigastric pain Physical exam URI (upper respiratory infection) Colon cancer screening Mild recurrent major depression Insomnia Hypovitaminosis D Chronic low back pain Depression Tubular adenoma of colon Erosive esophagitis Nonalcoholic fatty liver disease without nonalcoholic steatohepatitis (HELMS) GERD (gastroesophageal reflux disease) Surgical History Hx of arthroscopy of left knee Hx of left inguinal hernia repair Hx of colonoscopy Family History Father HTN (hypertension) Stroke Epilepsy Mother Alzheimer disease Social History Housing: Apartment Are you a primary personal care service provider to a significant other at home: No Do you presently have visiting nurse or other home services: No Alcohol intake: former Patient Tobacco Use Status: Former Tobacco user Tobacco use type: Cigarette e-Cigarette/Vaping Use: Never Used Second Hand Smoke Exposure: No service: No Current occupational status: disabled Cognitive needs: No Hearing needs: No Vision needs: No Questionnaire PHQ-9 Over the last 2 weeks, how often have you been bothered by any of the following problems? 1. Little interest or pleasure in doing things: several days 2. Feeling down, depressed, or hopeless: several days 3. Trouble falling or staying asleep, or sleeping too much: more than half the days 4. Feeling tired or having little energy: several days 5. Poor appetite or overeating: several days 6. Feeling bad about yourself - or that you are a failure or have let yourself or your family down: not at all 7. Trouble concentrating on things, such as reading the newspaper or watching television: several days 8. Moving or speaking so slowly that other people could have noticed. Or the opposite - being so fidgety or restless that you have been moving around a lot more than usual: not at all 9. Thoughts that you would be better off or of hurting yourself in some way: not at all Total score: 7 Depression Screening Interpretation: Positive Depression Screening Follow-up: Existing condition, In treatment, Community Mental Health Worker F/U and Follow- up Visit Requested Depression Screening Done: Yes 29779 - PHQ-9 Billing: Yes Source: Developed by Drs. Von Cool, Rosalind Alexis, Jovani Kim and colleagues, with an educational anthony from [employer]. Thrive Questionnaire Date Thrive assessed: 01/20/25 I am a: Patient What is your living situation today?: I have a steady place to live Within the past 12 months, did the food you bought not last and you didn't have the money to get more?: I choose not to answer this question Within the past 12 months, did you worry whether your food would run out before you got money to buy more?: I choose not to answer this question Do you have trouble paying for medicines?: I choose not to answer this question Do you have trouble getting transportation to medical appointments?: I choose not to answer this question Do you have trouble paying your heating and electricity bill?: I choose not to answer this question Do you have trouble taking care of your child, family member or friend?: I choose not to answer this question Do you have trouble with day-to-day activities such as bathing, preparing meals, shopping, managing finances, etc.?: I choose not to answer this question Are you currently unemployed and looking for a job?: I choose not to answer this question Are you interested in more education?: I choose not to answer this question Please select the resources that you would like help with: None Currently or been in a relationship where the following occur: I choose not to answer THRIVE Score: 0 AUDIT C Alcohol Use Questionnaire (AUDIT-C) 1. How often do you have a drink containing alcohol?: Never Total Score: 0 Score Reviewed/Action Taken: No BRUNO-7 AMB Questionnaire BRUNO-7 Date BRUNO - 7 assessed: 01/20/25 Feeling nervous, anxious, or on edge: 1 = Several days Not being able to stop or control worryin = Not at all Worrying too much about different things: 1 = Several days Trouble relaxin = Not at all Being so restless that it is hard to sit still: 0 = Not at all Becoming easily annoyed or irritable: 1 = Several days Feeling afraid as if something awful might happen: 0 = Not at all Total BRUNO-7 score (0-4 normal; 5-9 mild; 10-14 moderate; 15-21 severe): 3 Source: Developed by Drs. Von Cool, Rosalind Alexis, Jovani Kim and colleagues, with an educational anthony from [employer]. BRUNO-7 Assessment Billing BRUNO-7 Assessment Tool: BRUNO-7 Assessment 80606 Review of Systems Const All systems reviewed & are unremarkable except as noted in HPI and below Card Denies chest pain at rest, Denies chest pain with activity, Denies edema, Denies irregular heart rhythm, Denies claudication, Denies dyspnea, Denies dyspnea on exertion, Denies orthopnea, Denies paroxysmal nocturnal dyspnea and Denies slow heart rate Resp Denies cough, Denies dyspnea and Denies dyspnea on exertion GI Denies abdominal pain, Denies change in bowel habits, Denies excessive flatus, Denies nausea and Denies vomiting Denies urinary hesitancy, Denies urinary incontinence and Denies urinary urgency Neuro Denies lack of coordination Physical exam (Primary Care) Vital Signs: Last Vital Signs BP 130/80 01/20/25 10:45 BMI result Body Mass Index 27.7 Tobacco/Smoking Status: Tobacco use Status Tobacco use date assessed 01/20/25 01/20/25 10:52 Patient Tobacco Use Status Former Tobacco user 01/20/25 10:52 Tobacco use type Cigarette 01/20/25 10:52 e-Cigarette/Vaping Use Never Used 01/20/25 10:52 PHQ-9: PHQ-9 Score PHQ-9: Total score 7 01/20/25 11:17 Depression Screening Interpretation: Positive Depression Screening Follow-up: Existing condition, In treatment, Community Mental Health Worker F/U and Follow- up Visit Requested Thrive Assessment: Date of Thrive Assessment Date Thrive assessed 01/20/25 01/20/25 10:52 Currently or been in a relationship where the following occur: I choose not to answer Neck Neck: Yes normal visual inspection and Yes supple Resp Effort & Inspection: normal respiratory effort Auscultation: clear to auscultation bilaterally Cardio Jugular venous distension: no JVD Rate: regular rate Rhythm: regular rhythm Heart sounds: S1 normal heart sound present and S2 normal heart sound present Extrem General: Yes full ROM Coding Level of Care Code Est Pt Level 4 (53171) Complex EM visit Add On G2211 Diagnoses Mild recurrent major depression F33.0 Gastroesophageal reflux disease, unspecified whether esophagitis present K21.9 Esophagitis presence: esophagitis presence not specified Constipation K59.00 Hypovitaminosis D E55.9 BRUNO (generalized anxiety disorder) F41.1 Additional Codes BRUNO-7 Assessment Billing - BRUNO-7 Assessment Tool: BRUNO-7 Assessment 23143 ([id number]) PHQ-9 - 07026 - PHQ-9 Billing: Yes ([id number]) Time Spent (min) 22 Assessment & Plan Assessment & Plan (1) Mild recurrent major depression: Code(s): F33.0 - Major depressive disorder, recurrent, mild Category: Medical (2) GERD (gastroesophageal reflux disease): Code(s): K21.9 - Gastro-esophageal reflux disease without esophagitis Category: Medical Qualifiers: Esophagitis presence: esophagitis presence not specified Qualified Code(s): K21.9 - Gastro-esophageal reflux disease without esophagitis (3) Constipation: Code(s): K59.00 - Constipation, unspecified Category: Medical (4) Hypovitaminosis D: Code(s): E55.9 - Vitamin D deficiency, unspecified Category: Medical (5) BRUNO (generalized anxiety disorder): Code(s): F41.1 - Generalized anxiety disorder Category: Medical Plan The management of depression with sertraline will continue as per psychiatric evaluation; insomnia remains treated with trazodone. Constipation is addressed through bisacodyl administration and vitamin D supplementation. Pantoprazole continues to treat GERD effectively. Preventive measures against allergen- induced rashes, notably from crab, stand. Reports of dizziness primarily noted during rest have not yet indicated significant causes. Recent neurology review did not highlight abnormalities tied to headaches. The patient remains compliant with medication usages and lifestyle modifications as noted. Planned laboratory and comprehensive evaluations are crucial steps. Patient was informed and verbally consented to the use of an ambient scribe for clinic note documentation during this visit. The discussion included reviewing the patient's regimen for chronic conditions such as depression and GERD. Medication adherence is emphasized, with clear instructions provided on sertraline and trazodone utilization. Concerns around dizziness during sleep were explored, and reassurance provided due to the absence of alarming symptoms. Neurology consultation confirmed no significant findings, and I communicated the importance of the upcoming physical examination and laboratory tests to monitor health metrics. I advised continuing avoidance of allergens, particularly crab, due to its effectiveness in preventing allergic reactions. The patient mutually understands and consents to continue his current management plan. Orders: Orders Lipid Panel 6 Months E78.5 - Hyperlipidemia, unspecified Vitamin D 25-OH Total 6 Months E55.9 - Vitamin D deficiency, unspecified Comprehensive [place]. Panel Fast 6 Months K21.9 - Gastro-esophageal reflux disease without esophagitis Vitamin B1 6 Months E51.9 - Thiamine deficiency, unspecified Medications: Refilled cholecalciferol (vitamin D3) (Vitamin D3) 50 mcg (2 x 25 mcg (1,000 unit)) PO DAILY 180 tabs 2RF 90 days Patient Instructions: - Continue all prescribed medications: sertraline, trazodone, bisacodyl, pantoprazole, vitamin D, and A B1. - Avoid crab to prevent allergic reactions. - Attend scheduled follow-up in July for laboratory assessments. - Monitor for any new or worsening symptoms such as increased dizziness or headaches, and report them promptly. - Maintain adherence to psychiatrist recommendations for depression management. - Reports of dizziness primarily noted during rest, though likely not of concern, should be observed - seek advice if changes occur.
--- OUTSIDE RECORDS SUMMARY | 2025-01-20 11:29 | XMS_ITS | Clinical Summary ---
Author Organization [facility] it Address [address] [place] [address] Care Team Providers Care Senior Communications Specialist Name Role Phone Unavailable Primary Care Provider [...]
== END 2025-01-20 11:21 | disposition home or self-care (01) ==
LOC: HO.HMCH 10:44
PROVIDERS: PCP Internal Medicine; Visit Provider Internal Medicine
DX: F33.0 Major depressive disorder, recurrent, mild (principal); K21.9 Gastro-esophageal reflux disease without esophagitis; K59.00 Constipation, unspecified; E55.9 Vitamin D deficiency, unspecified; F41.1 Generalized anxiety disorder

== ENCOUNTER → 2025-01-20 10:43 | Outpatient (BNVA) | payer OTHER, SELFPAY | PROVIDERS: PCP Internal Medicine; Visit Provider Internal Medicine | DX: F33.0 Major depressive disorder, recurrent, mild (principal); K21.9 Gastro-esophageal reflux disease without esophagitis; G47.00 Insomnia, unspecified; K59.00 Constipation, unspecified; F41.1 Generalized anxiety disorder; R42 Dizziness and giddiness; E55.9 Vitamin D deficiency, unspecified; E78.5 Hyperlipidemia, unspecified; E51.9 Thiamine deficiency, unspecified | CPT/HCPCS: 96127; 99212 ==

== ENCOUNTER 2025-03-11 11:31 | Outpatient (AMB) | payer OTHER, SELFPAY ==
[2025-03-11 11:51] VITALS: BP 110/70; PULSE 69; O2SAT 97; BMI 26.8
--- NOTE | 2025-03-11 11:51 | MHC.OFFVIS ---
Vital Signs 03/11/25 11:51 Height 5 ft 10 in Weight 187 lb BMI 26.8 BP 110/70 Blood Pressure Location Rt brachial Position Sitting Pulse 69 Pulse Source Pulse Oximeter Pulse Oximetry (%) 97 Oxygen Delivery Method Room Air Intake Visit Reasons: 6mon follow-up Fittings Finisher Required: Yes Fittings Finisher Name: Wilson [id number] Accompanied by: Self / Same As Patient Allergies crab Allergy (Intermediate, Verified 03/11/25 11:54) RASH Medication List - Last Reconciled 03/11/25 by LEEANNA Duke bisacodyl (Dulcolax (bisacodyl)) 10 mg (2 x 5 mg) PO BEDTIME 2 days cholecalciferol (vitamin D3) (Vitamin D3) 50 mcg (2 x 25 mcg (1,000 unit)) PO DAILY 90 days ibuprofen 800 mg PO TID PRN pantoprazole 40 mg PO BID peg 3350-electrolytes 236-22.74-6.74 -5.86 gram (Golytely) 240 mL PO Q10M 1 day sennosides (senna) 1-2 tabs qhs PO bedtime; 90 days sertraline 200 mg (2 x 100 mg) PO DAILY 90 days thiamine HCl (vitamin B1) 100 mg PO DAILY 90 days trazodone 50 mg PO BEDTIME 90 days HPI Comments Details: Right-handed 59-yr-old male presents for follow-up of cognitive difficulties normal sleep difficulties tremor migraine. 10/12/24, /MR head/brain wo/w con showed nonspecific white matter hyperintensities which are greater than expected for a patient of this age. Interval labs, were notable for thiamine and vitamin-D deficiency. Patient was started on supplements for both. Patient did miss his home sleep study appointment. Patient reports he continues to have memory issues, which he has been prone to his entire life. Today, he does endorse by history of excessive alcohol intake, which he can not specify other than that he drank a lot on a regular basis for at least 2-3 decades. He has been sober for several years now. He states he only has a migraine when he does not eat or has strong light exposure. However, he is prone to not eat breakfast and sometimes lunch, as he thought this was better for his health. 09/18/24 Initial HPI: Right-handed 59-yr-old male presents for new pt evaluation of cognitive difficulties. Patient is unaccompanied. PMH notable for major depressive disorder and generalized anxiety disorder- f/b psychiatry, chronic insomnia, gastric disorder, constipation, essential hypertension, chronic low back pain, and past tubular adenoma- f/b GI, history of alcohol/tobacco use. Pt reports he has always had a poor memory. He states he has always had difficulty reading, concentrating, focusing, and remembering things. He states that this has been the same throughout his life. Pt was [place]. Pt reports as far as he knows he had normal gestational and . He had one seizure as an - unsure of trigger. He had difficulty learning to speak. He reports normal early gross motor skills. He was in special education for speech and concentration. He graduated from high school. 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 He is on disability. He moved his with his mother at age 10-12 yo. He has 2 dtrs- late 20s and early 20s- he can not state their ages exactly. He is living with his younger dtr. He is Ind w/ ADLs- but his back and LLE pain does make it difficult. His dtr helps him manage his finances. He can forget to turn off the stove, so his dtr helps w/ cooking. He he states it is difficult to learn something new. He does drive locally or w/ someone else, as he can become lost on his on in unfamiliar places. When he is anxious, his cognitive difficulties are worse. Patient states sertraline does help his mood and anxiety. He can have auditory hallucinations- may hear people talking, he can not tell me if this happens at night or during the day or both. He states he has tremor in both hands only when he is nervous. He can feel that he spaces out but is not sure. He does not sleep well- states he snores, has gasping arousals, and has daytime sleepiness. His psychiatrist advised him to request a sleep study. His dtr has told him that he talks and punches in his sleep. He states he has migraine when he does not eat or has strong light exposure. His father had epilepsy and in his 80s. His mother had Alzheimer's in her later years. [facility] Medical History History of seizure B12 deficiency Family history of hypertension Diverticulosis of colon Epigastric pain Physical exam URI (upper respiratory infection) Colon cancer screening Mild recurrent major depression Insomnia Hypovitaminosis D Chronic low back pain Depression Tubular adenoma of colon Erosive esophagitis Nonalcoholic fatty liver disease without nonalcoholic steatohepatitis (HELMS) GERD (gastroesophageal reflux disease) Surgical History Hx of arthroscopy of left knee Hx of left inguinal hernia repair Hx of colonoscopy Family History Father HTN (hypertension) Stroke Epilepsy Mother Alzheimer disease Social History Housing: Apartment Are you a primary career development engineer to a significant other at home: No Do you presently have visiting nurse or other home services: No Alcohol intake: former Patient Tobacco Use Status: Former Tobacco user Tobacco use type: Cigarette e-Cigarette/Vaping Use: Never Used Second Hand Smoke Exposure: No service: No Current occupational status: disabled Cognitive needs: No Hearing needs: No Vision needs: No Physical Exam Vital Signs: Last Vital Signs Pulse 69 03/11/25 11:51 BP 110/70 03/11/25 11:51 Pulse Ox 97 03/11/25 11:51 Oxygen Delivery Method Room Air 03/11/25 11:51 BMI result Body Mass Index 26.8 Resp Effort & Inspection: normal respiratory effort and able to speak in complete sentences Neuro Other: Alert and oriented to person, time and place. Mild swaying, lightheadedness upon standing-patient states he had not eaten in yet today- at approximately 12:00 Stands easily, antalgic gait. Motor exam (neuro): 5/5 motor strength present throughout Pupils: Normal pupillary reactivity/response: bilateral Psych Appearance: grossly normal Speech and movement: Normal speech and movement present Attitude: cooperative Assessment & Plan Assessment & Plan (1) Cognitive dysfunction: Comment: MMSE 21/29 - results may be limited due to illiterate status Code(s): F09 - Unspecified mental disorder due to known physiological condition Category: Medical (2) History of seizure: Code(s): Z87.898 - Personal history of other specified conditions Category: Medical (3) Snoring: Code(s): R06.83 - Snoring Category: Medical (4) Sleep difficulties: Code(s): G47.9 - Sleep disorder, unspecified Category: Medical (5) Excessive daytime sleepiness: Code(s): G47.19 - Other hypersomnia Category: Medical (6) Illiterate: Code(s): Z55.0 - Illiteracy and low-level literacy Category: Social Hx Plan 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 Patient describes lifelong speech and learning difficulty. Patient is unable to clarify specific etiology or a definitive developmental delay diagnosis. Patient is able to state that his anxiety can exacerbate his cognitive function. For cognitive dysfunction: Reviewed labs, recheck vitamin-D and thiamine levels as well as labs to round 0 cognitive workup. Reviewed Brain MRI with and without- nonspecific white matter changes, considered more than would be expected for patient's age. This maybe secondary to history of excessive alcohol use. EEG was unremarkable. Home sleep study as ordered-we will request it to be rescheduled Home sleep study, if inconclusive, consider In-lab PSG to assess for parasomnia as well. EEG For migraine: Patient advised to avoid skipping meals, to take even a small breakfast and lunch to avoid triggering a migraine type headache. If this is ineffective, we will initiate a migraine preventative treatment plan. Will follow-up upon review of above and patient to follow-up in clinic in 6 months or sooner prn. Patient previously asked to bring family member with him to upcoming appointments, which patient agrees to. However, he would like all testing results reported to him directly as he does not want to worry his daughters. Coding Level of Care Code Est Pt Level 4 (73024) Diagnoses Cognitive dysfunction F09 History of seizure Z87.898 Snoring R06.83 Sleep difficulties G47.9 Excessive daytime sleepiness G47.19 Illiterate Z55.0
--- OUTSIDE RECORDS SUMMARY | 2025-03-11 12:25 | XMS_ITS | Clinical Summary ---
Author Organization [facility] it Address [address] [place] [address] Care Team Providers Care Food Service Sales Representatives Name Role Phone Unavailable Primary Care Provider [...] ars (1 of 2 - PCV) 1986 Zoster Vaccines (1 of 2) 2017 Cholesterol Screening (Lipid Panel) 07/22/2022 Colorectal Cancer Screening: Colonoscopy 07/22/2022 HIV Screening 07/22/2022 Hepatitis C Screening 07/22/2022 Social Influencers of Health Screening 07/22/2022 DTaP,Tdap,and Td Vaccines (2 - Td or Tdap) 09/29/2023 09/29/2013 COVID-19 Vaccine (1 - 2023-2 5 season) 2024 Depression Screening 08/19/2024 Influenza Vaccine (#1) 2025 09/29/2013 HIB Vaccines Aged Out No longer [...]
== END 2025-03-11 12:32 | disposition home or self-care (01) ==
LOC: HO.HSMS 11:32
PROVIDERS: PCP Internal Medicine; Visit Provider Nurse Practitioner Family
DX: R41.89 Other symptoms and signs involving cognitive functions and awareness (principal); Z87.898 Personal history of other specified conditions; R06.83 Snoring; G47.9 Sleep disorder, unspecified; G47.19 Other hypersomnia; Z55.0 Illiteracy and low-level literacy
CPT/HCPCS: 99214

== ENCOUNTER 2025-03-11 11:31 | Outpatient (REF) | payer OTHER, SELFPAY ==
[2025-03-15 15:58] LABS: Vitamin D 25-OH, D2 <4 ng/mL; Vitamin D 25-OH, D3 33 ng/mL; Vitamin D 25-OH, Total 33 ng/mL (30-100)
== END 2025-03-11 11:32 | disposition home or self-care (01) ==
LOC: HO.LAB 11:31
PROVIDERS: PCP Internal Medicine; Visit Provider Nurse Practitioner Family
DX: R06.83 Snoring (principal); F09 Unspecified mental disorder due to known physiological condition; G47.19 Other hypersomnia; E55.9 Vitamin D deficiency, unspecified; E51.9 Thiamine deficiency, unspecified; Z87.898 Personal history of other specified conditions; Z55.0 Illiteracy and low-level literacy
CPT/HCPCS: 36415; 82306; 84425; 99212

== ENCOUNTER 2025-07-22 11:06 | Day surgery (SDC) | payer OTHER, SELFPAY ==
--- OUTSIDE RECORDS SUMMARY | 2025-06-15 09:32 | XMS_ITS | Clinical Summary ---
Author Organization [facility] [employer] [facility] it Address [address] [place] [address] Care Team Providers Care Press Set Up Person Name Role Phone Unavailable Primary Care Provider [...] Health Maintenance Due Date Last Done Comments Colorectal Cancer Screening: Colonoscopy 1967 Hepatitis B Vaccines (1 of 3 - 19+ 3-dose series) 1986 Pneumococcal Vaccine: 50+ Ye ars (1 of 2 - PCV) 1986 Zoster Vaccines (1 of 2) 2017 Cholesterol Screening (Lipid Panel) 07/22/2022 HIV Screening 07/22/2022 Hepatitis C Screening 07/22/2022 Social Influencers of Health Screening 07/22/2022 DTaP,Tdap,and Td Vaccines (2 - Td or Tdap) 09/29/2023 09/29/2013 Depression Screening 08/19/2024 COVID-19 Vaccine ( - 2023-2 5 season) 2025 Influenza Vaccine (#1) 2025 09/29/2013 RSV Immunization Adult Patie nts (1 - 1-dose 75+ series) 2042 HIB Vaccines Aged Out No longer eligi [...]
--- NOTE | 2025-07-20 09:09 | HO.ANESPROP2 ---
Documented by User: Betty Powell NP 07/20/25 09:11 HPI - Anesthesia Eval Consult details Narrative: 60yo M for Upper Endoscopy and Colonoscopy PMF Active Problems Active Problems: All Active Problems BRUNO (generalized anxiety disorder) (Acute) Pre-op examination (Acute) Thiamine deficiency (Acute) Cognitive dysfunction (Acute) Excessive daytime sleepiness (Acute) Sleep difficulties (Acute) Snoring (Acute) Anemia (Acute) Memory loss (Acute) Peralta's esophagus determined by biopsy (Acute) Mild recurrent major depression (Acute) Erosive esophagitis (Acute) Nonalcoholic fatty liver disease without nonalcoholic steatohepatitis (HELMS) (Acute) GERD (gastroesophageal reflux disease) (Acute) Constipation (Acute) Tubular adenoma of colon (Acute) Insomnia (Acute) Depression (Acute) Hypovitaminosis D (Acute) Illiterate (Acute) Past Medical History Medical History History of seizure B12 deficiency Family history of hypertension Diverticulosis of colon Epigastric pain Physical exam URI (upper respiratory infection) Colon cancer screening Mild recurrent major depression Insomnia Hypovitaminosis D Chronic low back pain Depression Tubular adenoma of colon Erosive esophagitis Nonalcoholic fatty liver disease without nonalcoholic steatohepatitis (HELMS) GERD (gastroesophageal reflux disease) Family History Family History Father HTN (hypertension) Stroke Epilepsy Mother Alzheimer disease Family history of problems with anesthesia: No Surgical History Surgical History Hx of bilateral cataract extraction Hx of arthroscopy of left knee Hx of left inguinal hernia repair Hx of colonoscopy History of Problems with Anesthesia: No Social History Social History Household Members Other:: daughter Crystal Housing: Apartment Are you a primary after school caregiver to a significant other at home: No Do you presently have visiting nurse or other home services: No Alcohol intake: former Patient Tobacco Use Status: Former Tobacco user Tobacco use type: Cigarette Smoked in Last 30 Days: No e-Cigarette/Vaping Use: Never Used Second Hand Smoke Exposure: No Use of substances other than those prescribed or required for medical reasons: No Have you been hit, kicked, punched, or otherwise hurt by someone within the past year? If so, by whom?: No Are you DNR?: No Advance Directives: No Advance Directives Information Provided: Yes Advance Directives on File: No service: No Current occupational status: disabled Cognitive needs: No Hearing needs: No Vision needs: No Meds Allergies Allergy/AdvReac Type Severity Reaction Status Date / Time crab Allergy Intermediate RASH Verified 07/22/25 11:29 Assessment and Plan Assessment Anesthesia Assessment: Chart Reviewed Final Anesthetic Review Family History of Problems with Anesthesia: No History of Problems with Anesthesia: No Documented by User: Victorina Guerrero MD 07/22/25 11:55 PMFSH Past Medical History Medical History History of seizure B12 deficiency Family history of hypertension Diverticulosis of colon Epigastric pain Physical exam URI (upper respiratory infection) Colon cancer screening Mild recurrent major depression Insomnia Hypovitaminosis D Chronic low back pain Depression Tubular adenoma of colon Erosive esophagitis Nonalcoholic fatty liver disease without nonalcoholic steatohepatitis (HELMS) GERD (gastroesophageal reflux disease) Family History Family History Father HTN (hypertension) Stroke Epilepsy Mother Alzheimer disease Surgical History Surgical History Hx of bilateral cataract extraction Hx of arthroscopy of left knee Hx of left inguinal hernia repair Hx of colonoscopy Social History Social History Household Members Other:: daughter Crystal Housing: Apartment Are you a primary after school caregiver to a significant other at home: No Do you presently have visiting nurse or other home services: No Alcohol intake: former Patient Tobacco Use Status: Former Tobacco user Tobacco use type: Cigarette Smoked in Last 30 Days: No e-Cigarette/Vaping Use: Never Used Second Hand Smoke Exposure: No Use of substances other than those prescribed or required for medical reasons: No Have you been hit, kicked, punched, or otherwise hurt by someone within the past year? If so, by whom?: No Are you DNR?: No Advance Directives: No Advance Directives Information Provided: Yes Advance Directives on File: No service: No Current occupational status: disabled Cognitive needs: No Hearing needs: No Vision needs: No Meds Allergies Allergy/AdvReac Type Severity Reaction Status Date / Time crab Allergy Intermediate RASH Verified 07/22/25 11:29 Exam Airway Mallampati Class: III TM Dist: >3cm Neck ROM: Full Loose/Missing/Broken Teeth: No Heart: RRR Lungs: CTA Assessment and Plan Assessment Anesthesia Assessment: Anesthesia Plan Discussed Final Anesthetic Review NPO: Yes ASA Class: II Final Preanesthetic Review: Meds/Allgs Chart Reviewed, Consent Obtained/Reviewed and Anes Risks/Benef Reviewed Patient Risk: Low Procedure Risk: Intermediate Anesthetic Plan Anesthetic Plan: MAC: Disposition: Standard PACU
[2025-07-20 14:54] VITALS: BMI 27.7
[2025-07-20 15:17] VITALS: BMI 27.7
--- NOTE | 2025-07-22 11:28 | P.HPSUR_ITS ---
Pre-Procedural Eval Section A - 24 Hr Update-Section A only Date of Service: 07/22/25 Section B - Complete if H&P > 30 days Chief Complaint: Peralta's esophagus w/o dysplasia,fatty liver Relevant Family History (Specify if Yes): No Relevant Social History: None Present Medications: see Short Stay Collaborative assessment Medical History: Significant History (History of seizure B12 deficiency Family history of hypertension Diverticulosis of colon Epigastric pain Physical exam URI (upper respiratory infection) Colon cancer screening Mild recurrent major depression Insomnia Hypovitaminosis D Chronic low back pain Depression Tubular adenoma of colon Erosive) History of Previous Operations: Relevant previous surgery/procedure and date(s) ( Hx of arthroscopy of left knee Hx of left inguinal hernia repair Hx of colonoscopy) Allergies: Allergies Allergy/AdvReac Type Severity Reaction Status Date / Time crab Allergy Intermediate RASH Verified 03/11/25 11:54 Review of Systems Sugical H&P ROS: Negative: Constitution, Cardiovascular, Respiratory, Neurologi yoandy, Psychiatric, Hem-Onc, Allergic/Immunologic, Gastrointestinal, Genitourinary, Musculoskeletal, Integumentary, Endocrine and Eyes/Ears/Nose/Throat Exam Surgical H&P Exam: Normal: HEENT, Normal: Heart, Normal: Lungs, Normal: Extremities, Normal: Abdomen, Normal: Skin and Normal: Neurological Plan Diagnosis/Plan: Unchanged I have reviewed the history and physical and performed a pertinent physical examination on my patient. No changes have occurred unless specified. Time Spent With Patient Time: Total time managing care of this patient today ____ minutes.
[2025-07-22 11:35] VITALS: BMI 27.5
[2025-07-22] MEDS: Lactated Ringers 1,000 ML 100 ML IVCONT (11:48)
[2025-07-22 11:50] VITALS: BP 135/81; PULSE 70; RESP 16; TEMP 36.7; O2SAT 99
--- NOTE | 2025-07-22 12:26 | P.OPN-COLO_ITS ---
Colonoscopy Operative Note Operative Note Date of Service: 07/22/25 Narrative: Operative Information Procedure Description: EGD, Colonoscopy Indication: GERD, screening Anesthesia: MAC FLEXIBLE TRANSORAL UPPER GASTROINTESTINAL ENDOSCOPY AND COLONOSCOPY PROCEDURE NOTE UPPER ENDOSCOPY Consent: Indications for the procedure and potential complications of bleeding, perforation, reaction to medications and missed diagnosis were discussed with the patient and informed consent was obtained. Instrument: Olympus GIF H 190 J mid size upper endoscope Monitoring: Vital signs and clinical assessment, continuous EKG monitoring, Pulse oximetry, Carbon Dioxide monitoring and blood pressure monitoring were done throughout the procedure. Procedure: The patient was placed in the left lateral decubitis position and pre-procedure medications were administered and a bite block was placed. The endoscope was inserted into the mouth and advanced under direct vision to the third part of duodenum. A careful inspection was made as the upper endoscope was withdrawn including a retroflexed examination of the proximal stomach; Findings and interventions are described below. Findings: Larynx:normal Esophagus: GE junction at 40 cm, diaphragm hiatus at 40 cm, normal mucosa - distal esophagus bx taken, no barretts appearing mucosa seen Stomach: patchy erythema. Biopsies were obtained. Grade 2 flap valve on retroflexed examination of the cardia. Duodenum: mild bulbar duodenitis, bx taken Intervention: Biopsies as noted above, COLONOSCOPY Instrument: Olympus variable stiffness pediatric scope 190L Colonoscopy Monitoring: Vital signs and clinical assessment, continuous EKG monitoring, Pulse oximetry, Carbon Dioxide monitoring and blood pressure monitoring were done throughout the procedure. Colon withdrawal time was 7 minutes. Procedure: The patient was placed in the left lateral decubitis position and pre-procedure medications were administered. After a digital rectal examination of the ano-rectum, the video colonoscope was inserted into the rectum and advanced through the colon to the cecum/TI. The colonoscope was slowly withdrawn in a retrograde panoramic fashion and the colon mucosa was carefully examined including a retroflexed view of the rectum. Findings and interventions are described below. Procedure Difficulty:moderate Findings: Terminal Ileum-normal Cecum:normal Ascending Colon: normal Transverse Colon -normal Descending Colon:normal Sigmoid Colon: normal Rectum: Retroflexion with small internal hemorrhoids, grade I Anorectum - normal Colon preparation: [place] Bowel Preparation Scale Right colon; 2-3 Transverse colon: 2 Left colon; 2 (0 = Unprepared colon segment with mucosa not seen due to solid stool that cannot be cleared. 1 = Portion of mucosa of the colon segment seen, but other areas of the colon segment not well seen due to staining, residual stool and/or opaque liquid. 2 = Minor amount of residual staining, small fragments of stool and/or opaque liquid, but mucosa of colon segment seen well. 3 = Entire mucosa of colon segment seen well with no residual staining, small fragments of stool or opaque liquid) Impression and Post Procedure Diagnosis: Endoscopy Findings: gastritis mild duodenitis Colonoscopy Findings: internal hemorrhoids Plan: Await Pathology results Repeat Colonoscopy in 10 years or earlier if clinically indicated High fiber diet leaflet avoid straining at stool, epsom salts and sitz bath, anusol supps or cream if H pylori pos then treat Above findings were reviewed with the patient and relevant handouts were provided if indicated.
[2025-07-22 12:30] VITALS: BP 90/52; PULSE 77; RESP 18; TEMP 36.3; O2SAT 94
[2025-07-22 12:45] VITALS: BP 99/65; PULSE 65; RESP 18; O2SAT 100
[2025-07-22 13:00] VITALS: BP 112/70; PULSE 67; RESP 18; TEMP 36.1; O2SAT 100
== END 2025-07-22 14:22 | disposition home or self-care (01) ==
PROVIDERS: PCP Internal Medicine; Visit Provider Internal Medicine Gastroenterology
PROC: (CPT 43239; principal; 2025-07-22 10:50)
DX: K22.10 Ulcer of esophagus without bleeding (principal); K76.0 Fatty (change of) liver, not elsewhere classified; K21.9 Gastro-esophageal reflux disease without esophagitis; Z87.19 Personal history of other diseases of the digestive system; Z55.0 Illiteracy and low-level literacy; K59.00 Constipation, unspecified; Z86.0101 Personal history of adenomatous and serrated colon polyps; K64.0 First degree hemorrhoids; K29.80 Duodenitis without bleeding; K29.70 Gastritis, unspecified, without bleeding
CPT/HCPCS: 43239; G0121; 88305; 88313; 88342; J2003; J2704

== ENCOUNTER → 2025-07-22 11:06 | Outpatient (BNV) | payer OTHER, SELFPAY | PROVIDERS: PCP Internal Medicine; Visit Provider Internal Medicine Gastroenterology | DX: Z12.11 Encounter for screening for malignant neoplasm of colon (principal); K64.0 First degree hemorrhoids; K21.9 Gastro-esophageal reflux disease without esophagitis; K29.70 Gastritis, unspecified, without bleeding; K29.80 Duodenitis without bleeding | CPT/HCPCS: 43239; G0121 ==

== ENCOUNTER → 2025-07-26 14:03 | Outpatient (REF) | payer OTHER, SELFPAY ==
--- OUTSIDE RECORDS SUMMARY | 2025-07-26 22:55 | XMS_ITS | Clinical Summary ---
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
== END ==
LOC: HO.SL 14:03
PROVIDERS: PCP Internal Medicine; Visit Provider Nurse Practitioner Family
DX: G47.19 Other hypersomnia (principal); R06.83 Snoring
CPT/HCPCS: 95806

== ENCOUNTER → 2025-07-26 14:15 | Outpatient (BNV) | payer OTHER, SELFPAY | PROVIDERS: PCP Internal Medicine; Visit Provider Psychiatry & Neurology Neurology | DX: R06.83 Snoring (principal) | CPT/HCPCS: 95806 ==

== ENCOUNTER 2025-07-28 09:22 | Outpatient (REF) | payer OTHER, SELFPAY ==
[2025-07-28 11:23] LABS: Alanine Aminotransferase 24 U/L (0-40); Albumin Level 4.2 g/dL (3.5-5.0); Alkaline Phosphatase 71 U/L (39-117); Anion Gap 10 (12-20); Aspartate Amino Transferase 27 U/L (5-37); Blood Urea Nitrogen 11 mg/dL (9-16); Calcium 8.7 mg/dL (8.4-10.2); Carbon Dioxide 28 mmol/L (22-29); Chloride 103 mmol/L (96-108); Cholesterol 200 mg/dL (<200); Estimated Glomerular Filt Rate > 60; HDL Cholesterol 44 mg/dL (>40); Potassium 3.9 mmol/L (3.3-5.1); Sodium 137 mmol/L (135-145); Total Protein 7.1 g/dL (6.5-8.0); Triglycerides 121 mg/dL (<150)
== END 2025-07-28 09:23 | disposition home or self-care (01) ==
LOC: HO.LAB 09:22
PROVIDERS: PCP Internal Medicine; Visit Provider Internal Medicine
DX: Z00.00 Encounter for general adult medical examination without abnormal findings (principal); E55.9 Vitamin D deficiency, unspecified; E78.5 Hyperlipidemia, unspecified; E51.9 Thiamine deficiency, unspecified; K21.9 Gastro-esophageal reflux disease without esophagitis; F33.1 Major depressive disorder, recurrent, moderate; Z13.31 Encounter for screening for depression; Z13.39 Encounter for screening examination for other mental health and behavioral disorders
CPT/HCPCS: 36415; 80053; 80061; 82306; 84425; 96127; 99212; 99396

== ENCOUNTER 2025-07-28 10:59 | Outpatient (AMB) | payer OTHER, SELFPAY ==
[2025-07-28 11:12] VITALS: BP 130/62; PULSE 78; O2SAT 98; BMI 28.3
--- NOTE | 2025-07-28 11:12 | MHC.PC.OV ---
Vital Signs 07/28/25 11:12 Height 5 ft 10 in Weight 197 lb BMI 28.3 BP 130/62 Blood Pressure Location Lt brachial Position Sitting Pulse 78 Pulse Source Pulse Oximeter Pulse Oximetry (%) 98 Oxygen Delivery Method Room Air Intake Visit Reasons: Annual Exam Method Consultant Required: No Accompanied by: Self / Same As Patient Allergies crab Allergy (Intermediate, Verified 07/28/25 11:23) RASH Medication List - Last Reconciled 07/28/25 by Belen Brush MD cholecalciferol (vitamin D3) (Vitamin D3) 50 mcg (2 x 25 mcg (1,000 unit)) PO DAILY 90 days ibuprofen 800 mg PO TID PRN pantoprazole 40 mg PO BID sennosides (senna) 1-2 tabs qhs PO bedtime; 90 days sertraline 200 mg (2 x 100 mg) PO DAILY 90 days thiamine HCl (vitamin B1) 100 mg PO DAILY 90 days trazodone 50 mg PO BEDTIME 90 days Tobacco use date assessed: 01/20/25 Dental Screening Dental Screen Date: 01/20/25 HPI HPI Comments History of Present Illness Details The patient is a 60-year-old male presenting for his annual physical examination. The patient underwent an endoscopy and colonoscopy last week. The colonoscopy revealed internal hemorrhoids, with no polyps found, and a follow-up is recommended in 10 years. The endoscopy showed findings consistent with gastritis, and he has a follow-up appointment with gastroenterology on August 05. His current medications include vitamin D, PRN ibuprofen, pantoprazole for acidity, senna for constipation, sertraline for depression, vitamin B1, and trazodone for sleep. He continues to follow with psychiatry for his depression. A PHQ-9 score of 16 indicates moderate depression. Labs were discussed. He has pure hypercholesterolemia and he has [place] risk score is 9% chance to have a heart attack or stroke in the next 10 years therefore I will add a low-dose statin. His past surgical history includes procedures for cataracts, left knee, and inguinal hernia. There is a family history of epilepsy and hypertension in his father, and Alzheimer's disease in his mother. The patient has a history of smoking and alcohol use but reports he no longer drinks alcohol. The patient had a normal electroencephalogram in November and is scheduled for a follow-up with neurology on September 13. He also recently had a sleep study, but the results are not yet available. - He is up to date with his flu vaccine. - A colonoscopy last week revealed no polyps, and the next screening is due in 10 years. - His 10-year cardiovascular risk for a myocardial infarction or cerebrovascular accident is calculated at 9%, which warrants initiation of cholesterol-lowering medication. COUNT INCLUDES THE [facility] Medical History (Updated 07/28/25 @ 12:06 by Belen Brush MD) Physical exam History of seizure B12 deficiency Family history of hypertension Diverticulosis of colon Epigastric pain URI (upper respiratory infection) Colon cancer screening Mild recurrent major depression Insomnia Hypovitaminosis D Chronic low back pain Depression Tubular adenoma of colon Erosive esophagitis Nonalcoholic fatty liver disease without nonalcoholic steatohepatitis (HELMS) GERD (gastroesophageal reflux disease) Surgical History Hx of bilateral cataract extraction Hx of arthroscopy of left knee Hx of left inguinal hernia repair Hx of colonoscopy Family History Father HTN (hypertension) Stroke Epilepsy Mother Alzheimer disease Social History Household Members Other:: daughter Crystal Housing: Apartment Are you a primary after school caregiver to a significant other at home: No Do you presently have visiting nurse or other home services: No Alcohol intake: former Patient Tobacco Use Status: Former Tobacco user Tobacco use type: Cigarette e-Cigarette/Vaping Use: Never Used Second Hand Smoke Exposure: No service: No Current occupational status: disabled Cognitive needs: No Hearing needs: No Vision needs: No Questionnaire PHQ-9 Over the last 2 weeks, how often have you been bothered by any of the following problems? 1. Little interest or pleasure in doing things: more than half the days 2. Feeling down, depressed, or hopeless: more than half the days 3. Trouble falling or staying asleep, or sleeping too much: more than half the days 4. Feeling tired or having little energy: more than half the days 5. Poor appetite or overeating: more than half the days 6. Feeling bad about yourself - or that you are a failure or have let yourself or your family down: more than half the days 7. Trouble concentrating on things, such as reading the newspaper or watching television: more than half the days 8. Moving or speaking so slowly that other people could have noticed. Or the opposite - being so fidgety or restless that you have been moving around a lot more than usual: more than half the days 9. Thoughts that you would be better off or of hurting yourself in some way: not at all Total score: 16 Depression Screening Interpretation: Positive (no suicidal thoughts) Depression Screening Follow-up: Existing condition, In treatment, Community Mental Health Worker F/U and Follow-up Visit Requested Depression Screening Done: Yes 72077 - PHQ-9 Billing: Yes Source: Developed by Drs. Von Cool, Rosalind Alexis, Jovain Kim and colleagues, with an educational anthony from [employer]. Thrive Questionnaire Date Thrive assessed: 01/20/25 I am a: Patient What is your living situation today?: I have a steady place to live Within the past 12 months, did the food you bought not last and you didn't have the money to get more?: Never true Within the past 12 months, did you worry whether your food would run out before you got money to buy more?: Never true Do you have trouble paying for medicines?: No Do you have trouble getting transportation to medical appointments?: No Do you have trouble paying your heating and electricity bill?: No Do you have trouble taking care of your child, family member or friend?: No Do you have trouble with day-to-day activities such as bathing, preparing meals, shopping, managing finances, etc.?: No Are you currently unemployed and looking for a job?: No Are you interested in more education?: No Please select the resources that you would like help with: None Currently or been in a relationship where the following occur: No concerns reported THRIVE Score: 0 AUDIT C Alcohol Use Questionnaire (AUDIT-C) 1. How often do you have a drink containing alcohol?: Never 3. How often do you have six or more drinks on one occasion?: Never Total Score: 0 Score Reviewed/Action Taken: No BRUNO-7 AMB Questionnaire BRUNO-7 Date BRUNO - 7 assessed: 01/20/25 Feeling nervous, anxious, or on edge: 2 = More than half the days Not being able to stop or control worryin = More than half the days Worrying too much about different things: 2 = More than half the days Trouble relaxin = More than half the days Being so restless that it is hard to sit still: 2 = More than half the days Becoming easily annoyed or irritable: 2 = More than half the days Feeling afraid as if something awful might happen: 2 = More than half the days Total BRUNO-7 score (0-4 normal; 5-9 mild; 10-14 moderate; 15-21 severe): 14 Source: Developed by Drs. Von Cool, Rosalind Alexis, Jovani Kim and colleagues, with an educational anthony from [employer]. BRUNO-7 Assessment Billing BRUNO-7 Assessment Tool: BRUNO-7 Assessment 91513 Review of Systems Const All systems reviewed & are unremarkable except as noted in HPI and below Card Denies chest pain at rest, Denies chest pain with activity, Denies edema, Denies irregular heart rhythm, Denies claudication, Denies dyspnea, Denies dyspnea on exertion, Denies orthopnea, Denies paroxysmal nocturnal dyspnea and Denies slow heart rate Resp Denies cough, Denies dyspnea and Denies dyspnea on exertion Physical exam (Primary Care) Vital Signs: Last Vital Signs Pulse 78 07/28/25 11:12 BP 130/62 07/28/25 11:12 Pulse Ox 98 07/28/25 11:12 Oxygen Delivery Method Room Air 07/28/25 11:12 BMI result Body Mass Index 28.3 BMI Assessment/Plan discussion: High BMI High, discussed plan: lifestyle, weight reduction, dietary and physical activity Tobacco/Smoking Status: Tobacco use Status Tobacco use date assessed 01/20/25 07/28/25 11:17 Patient Tobacco Use Status Former Tobacco user 07/28/25 11:17 Tobacco use type Cigarette 07/28/25 11:17 e-Cigarette/Vaping Use Never Used 07/28/25 11:17 PHQ-9: PHQ-9 Score PHQ-9: Total score 16 07/28/25 11:17 Depression Screening Interpretation: Positive (no suicidal thoughts) Depression Screening Follow-up: Existing condition, In treatment, Community Mental Health Worker F/U and Follow-up Visit Requested Thrive Assessment: Date of Thrive Assessment Date Thrive assessed 01/20/25 07/28/25 11:17 Currently or been in a relationship where the following occur: No concerns reported [facility] Head: Yes normal to inspection, Yes normocephalic and Yes atraumatic Ears: external ears normal Eyes General: appearance normal, both eyes and all related structures Eyelids: Yes eyelids normal Conjunctivae: conjunctivae normal Neck Neck: Yes normal visual inspection and Yes supple Resp Effort & Inspection: normal respiratory effort Auscultation: clear to auscultation bilaterally Cardio Jugular venous distension: no JVD Rate: regular rate Rhythm: regular rhythm Heart sounds: S1 normal heart sound present and S2 normal heart sound present GI Inspection: Yes normal to inspection Palpation (GI): Soft to palpation and nontender Auscultation: normal bowel sounds Skin General skin exam: no rashes or lesions noted Neuro General: no focal motor deficits Extrem General: Yes full ROM Psych Appearance: grossly normal Coding Level of Care Code Est Pt Level 3 (32949) Est Pt Prev Care 40-64y(60948) Diagnoses Physical exam Z00.00 Moderate recurrent major depression F33.1 Pure hypercholesterolemia E78.00 Additional Codes PHQ-9 - 83304 - PHQ-9 Billing: Yes ([id number]) BRUNO-7 Assessment Billing - BRUNO-7 Assessment Tool: BRUNO-7 Assessment 54432 ([id number]) Time Spent (min) 31 Assessment & Plan Assessment & Plan (1) Physical exam: Code(s): Z00.00 - Encounter for general adult medical examination without abnormal findings Category: Medical (2) Moderate recurrent major depression: Code(s): F33.1 - Major depressive disorder, recurrent, moderate Category: Medical (3) Pure hypercholesterolemia: Comment: [place] risk score of 9% calculated July 28 2025. Statins were started. Code(s): E78.00 - Pure hypercholesterolemia, unspecified Category: Medical Plan Plan 1. Physical exam Repeat in a year. Repeat colonoscopy in 10 years. 2. Hypercholesterolemia The patient's 10-year cardiovascular risk is calculated to be 9%, which is above the 6% threshold for initiating pharmacotherapy. A low-dose statin will be started, to be taken at night. Follow-up labs to check cholesterol and liver enzymes will be scheduled in 6 months. The prescription will be sent to the [facility] on [facility]. 3. Gastritis The patient's recent endoscopy revealed findings consistent with gastritis. He is scheduled to see a baby nurse on August 05 to discuss the results and any concerns about his liver. 4. Depression The patient scored 16 on the PHQ-9, indicating moderate depression. He will continue his current medication regimen, which includes sertraline, and continue follow-up with psychiatry. Medications: New rosuvastatin 10 mg PO BEDTIME 90 tabs 1RF 90 days
== END 2025-07-28 11:40 | disposition home or self-care (01) ==
PROVIDERS: PCP Internal Medicine; Visit Provider Internal Medicine
DX: Z00.00 Encounter for general adult medical examination without abnormal findings (principal); F33.1 Major depressive disorder, recurrent, moderate; E78.00 Pure hypercholesterolemia, unspecified